=== PATIENT | male | born 1945 | race Caucasian/White ===

== ENCOUNTER 2017-07-28 12:43 | Outpatient (CLI) | payer MEDICARE ==
--- NOTE | 2017-07-28 14:49 | RAD ---
TWO VIEW CHEST: History: Dyspnea. FINDINGS: The lungs appear clear of infiltrate. No evidence of vascular congestion or edema. Heart size is mild ly prominent. Post op sternotomy changes are noted. Degenerative spine changes are seen. IMPRESSION: No evidence of acute process. POS: [facility]
== END 2017-07-28 12:44 | disposition home or self-care (01) ==
LOC: RAD 12:43
PROVIDERS: ATTEND Internal Medicine Critical Care Medicine
DX: R06.00 Dyspnea, unspecified (principal)
CPT/HCPCS: 71046

== ENCOUNTER 2018-06-16 22:59 | Inpatient (IN) | payer MEDICARE ==
[~2018-06-16 22:59] MED LIST: Heparin 10,000 UNITS/ 10 ML VIAL ONE
[2018-06-16] MEDS ORDERED: DOBUTamine 500 mg/250 ml 250 ML ONE (23:07)
[2018-06-16] MEDS ORDERED: Lidocaine 1% (PF) 30 ML VIAL ONE (23:20)
[2018-06-16 23:27] LABS: Hemoglobin 15.8 g/dL (14.0-18.0); Mean Corpuscular HGB CONC 33.9 g/dL (32.0-36.0); Mean Corpuscular Hemoglobin 31.6 pg (27.0-31.0); Mean Corpuscular Volume 93.4 fL (78.0-98.0); Mean Platelet Volume 9.2 fL (7.4-10.4); Platelet Count 123 thou/uL (130-400); RBC Distribution Width 13.1 % (11.5-14.5); Red Blood Cell (RBC) Count 4.99 mill/uL (4.70-6.10); White Blood Cell (WBC) Count 12.4 thou/uL (4.8-10.8)
[2018-06-16 23:32] LABS: INR-International Normal Ratio 1.7; PTT 40.2 SEC (22.9-36.1)
[2018-06-16 23:44] LABS: Band 31 % (5-11); Lymphocytes 2 % (21-51); MDiff Complete? YES; Monocytes 2 % (0-10); Neutrophil 64 % (42-75); PLT Morphology Comment Appears Decreased; RBC Morphology Normal; Reactive Lymphocytes 1 % (0-10)
[2018-06-16 23:49] LABS: ALT (SGPT) 15 U/L (8-55); AST (SGOT) 65 U/L (5-34); Albumin 2.7 g/dL (3.4-4.8); Alkaline Phosphatase 63 U/L (40-150); Anion Gap 15 mmol/L (10-20); BUN (Urea Nitrogen) 27 mg/dL (8.4-25.7); Calc. Creatinine Clearance 0 mL/min (70-130); Calcium 7.8 mg/dL (7.8-10.44); Carbon Dioxide 20 mmol/L (23-31); Chloride 103 mmol/L (98-107); Estimated GFR-MDRD 64; Globulin 2.9 g/dL (2.4-3.5); Glucose 366 mg/dL (83-110); Protein, Total 5.6 g/dL (5.8-8.1); Sodium 135 mmol/L (136-145)
[2018-06-16 23:58] LABS: Potassium 2.8 mmol/L (3.5-5.1)
--- NOTE | 2018-06-17 00:02 | RAD ---
PORTABLE CHEST ONE VIEW 06/16/18 HISTORY: 72-year-old male with history of dyspnea and respiratory distress. COMPARISON: 06/16/18 There is bilateral vascular congestion with some interstitial edema in the perihilar regions. There i s more focally prominent confluent parenchymal change in the right mid and lower lung zone which cert ainly could represent coexistent pneumonia or asymmetric edema. Postop midline sternotomy. The vascul ar congestion actually appears to be slightly improved from the earlier 06/16 study. IMPRESSION: Slightly improving bilateral vascular congestion. Somewhat more confluent alveolar parenchymal change in the right lower lobe primarily raising concern for coexistent pneumonia. POS: [facility]
[2018-06-17] MEDS ORDERED: Heparin 10,000 UNITS/1 ML VIAL ONE (00:30)
[2018-06-17] MEDS ORDERED: Norepinephrine 4 MG/4 ML VIAL ONE ×2 (00:30→00:41)
[2018-06-17] MEDS ORDERED: Morphine 4 MG/ML VIAL SLOW IVP PRN ×2 (01:58→01:59)
[2018-06-17] MEDS ORDERED: Potassium Chloride 20 MEQ in Premix Bag 1 BAG IVPB SCH (02:00)
[2018-06-17] MEDS ORDERED: Heparin 25,000 units/D5W 500 ML IV SCH (02:00)
[2018-06-17] MEDS ORDERED: Aspirin 325 mg Enteric Coated Tablet PO SCH (02:00)
[2018-06-17] MEDS ORDERED: DOPamine 400 MG/D5W 250 ML 250 ML IVPB SCH (02:00)
[2018-06-17] MEDS ORDERED: traMADol HCl 50 MG TAB PO PRN (02:05)
[2018-06-17] MEDS ORDERED: Nitroglycerin 0.4 MG TAB (25 Tab Bottle) SL PRN (02:05)
[2018-06-17] MEDS: Potassium Chloride 20 MEQ TAB PO SCH ×3 (02:19→15:26)
[2018-06-17 02:36] LABS: PTT 138.2 SEC (22.9-36.1)
[2018-06-17 03:01] LABS: Anion Gap 19 mmol/L (10-20); BUN (Urea Nitrogen) 33 mg/dL (8.4-25.7); Calc. Creatinine Clearance 65 mL/min (70-130); Calcium 9.1 mg/dL (7.8-10.44); Carbon Dioxide 19 mmol/L (23-31); Chloride 96 mmol/L (98-107); Estimated GFR-MDRD 50; Glucose 448 mg/dL (83-110); Potassium 4.2 mmol/L (3.5-5.1); Sodium 130 mmol/L (136-145)
[2018-06-17] MEDS ORDERED: Dextrose 50% Abboject 50 ML SYRINGE IVP PRN (03:12)
[2018-06-17] MEDS ORDERED: Dextrose 5% in Water 1,000 ML IV PRN (03:12)
[2018-06-17] MEDS: HumaLOG 300 UNITS/3 ML VIAL SC PRN ×4 (03:17→20:34)
[2018-06-17] MEDS: Norepinephrine 8 MG/250 ML BAG IVPB PRN ×4 (04:34→22:49)
--- NOTE | 2018-06-17 05:01 | CON ---
DATE OF CONSULTATION: 06/16/2018 INDICATION FOR CONSULTATION: The patient was admitted with an acute myocardial infarction, uncertain of which area. The patient does have a left bundle branch block. Also, he has had multiple stents placed, bypass surgery, and has had a repeat myocardial infarction. HISTORY OF PRESENT ILLNESS: This is a very unfortunate 72-year-old gentleman who has been having pain all day today, presents to emergency room. He has been seen by Dr. Hannah and had multiple stents placed in the right coronary artery and also the left circumflex as well as in the obtuse marginal branch of the left circumflex. He was seen in 2016, having been suffered another acute myocardial infarction. 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 At that time, he underwent stent placement to the saphenous vein graft again and also to the distal right coronary artery and sokaogon vessel just beyond the stented area. At that time, he was noted to have the other grafts were patent. The ejection fraction has been relatively well preserved. After presenting today to the emergency room, he appeared to be having acute GA. He did have some left bundle branch block making it difficult to determine exactly, which area was involved with a myocardial infarction. He was advised to undergo a cardiac catheterization. PAST MEDICAL HISTORY: Significant for coronary artery disease, diabetes, hypertension, sleep apnea, dyslipidemia. SOCIAL HISTORY: He has had a history of tobacco abuse in the past. PAST SURGICAL HISTORY: Multiple stent placements. He had bypass surgery. Please refer the notes already outlined by Dr. Hannah for the various stents placed. He has also had a cholecystectomy and cataract surgery as well as the bundle branch block, which was at least diagnosed since 2016. ALLERGIES: ALLERGIES TO AMOXICILLIN. MEDICATIONS: Please refer to the list of medications in the chart. They have already been documented. REVIEW OF SYSTEMS: At this time is not obtainable, but mainly just complains of chest pain. He had been doing relatively well until just recently when he developed the pain. PHYSICAL EXAMINATION: GENERAL: Reveals an elderly gentleman who is in least moderate degree of distress. He continues to have chest pain in the emergency room. VITAL SIGNS: His blood pressures are in the 80s to 100 with support. His heart rate is in the 100s to 120s, respiratory rate is 29 to 39. HEENT: Shows head to be normocephalic and atraumatic. I could not hear any carotid bruits. I did feel some carotid pulses. His chest has coarse rhonchi noted on the right side posteriorly and mildly also anteriorly. I did not hear anything on the left side. CARDIOVASCULAR. Heart sounds are somewhat distant. I do not hear any gross murmurs. He is tachycardic. He has a well-healed midline surgical incision after median sternotomy. ABDOMEN: Abdominal exam shows obesity with no tenderness. Femoral pulses are present. EXTREMITIES: Showed no clubbing or cyanosis. Pedal pulses are difficult to palpate. NEUROLOGIC: The patient seems to be relatively intact. SKIN: Warm and dry at this time. LABORATORY DATA: EKG shows a left bundle branch block. Troponin I is 0.150. MB was 1.8 with a BNP of 415. His blood sugar was 520, creatinine 1.1 with a potassium of 4.2, and WBC was 12.4 with a hemoglobin 15.8, his O2 saturation was 95%. PH was 7.38 with a pCO2 of 39 and a pO2 of 77. IMPRESSION: 1. Cardiogenic shock due to the acute myocardial infarction. He has been given heparin and dopamine as well as dobutamine prior to arriving here and these medicines have been continued. 2. Acute myocardial infarction of uncertain area due to the left bundle branch block. He was advised to undergo emergent cardiac catheterization. He will be taken to the cardiac yard laborer. I did explain the procedure, the risks to him to include bleeding, infection, possibility of myocardial infarction, cerebrovascular accident, renal insufficiency, allergy to contrast possibility of . He understands and agrees. We will plan for emergent cardiac catheterization to determine whether or not he has had a sokaogon vessel or saphenous vein graft occlusion. 3. History of diabetes. This will be dealt with by the primary care service. We will ask for the hospitalist service to assist us in his care. 4. History of hyperlipidemia. We will continue his medications once he is stable. 5. History of tobacco abuse. he no longer smokes. 6. History of hypertension, this is on the low side at this time. 7. History of coronary artery disease and previous bypass surgery, angioplasty, stent placement and myocardial infarction, and again he will be taken to cardiac yard laborer emergently and we will determine whether or not we can assist him and try to diminish his myocardial infarction. 8. Sleep apnea. We will continue his CPAP mask at this time. Further care of the patient will be by Dr. Hannah when he sees him tomorrow morning after we proceed to cardiac catheterization if he survives. He appears to be very ill at this time. He is hypotensive. Job ID: [id number] [facility]TD[facility]
[2018-06-17] MEDS ORDERED: Nitroglycerin 50 MG/250 ML BOT 250 ML IVPB SCH (07:45)
[2018-06-17] MEDS ORDERED: Morphine 2 MG/ML SYRINGE SLOW IVP PRN (07:46)
[2018-06-17] MEDS ORDERED: Nitroglycerin 50 MG/250 ML BOT 250 ML ONE (07:56)
[2018-06-17] MEDS ORDERED: Doxycycline 100 MG in Syringe 0 ML IVPB SCH (09:00)
[2018-06-17] MEDS: Morphine 4 MG/ML VIAL SLOW IVP PRN ×3 (09:32→17:21)
[2018-06-17] MEDS: Aspirin 325 mg Enteric Coated Tablet PO SCH (10:06)
[2018-06-17] MEDS: Insulin Glargine 30 UNITS in Pre-Filled Syringe 1 EACH SC SCH (11:02)
[2018-06-17] MEDS: Heparin 10,000 UNITS/ 10 ML VIAL SLOW IVP SCH ×2 (12:28→19:20)
--- NOTE | 2018-06-17 12:38 | PDOC.PN ---
- Subjective Encounter Start Date: 06/17/18 Encounter Start Time: 08:15 Subjective: c/o chest pain, sob+ -: at bedside - Objective Resuscitation Status - Order Detail: 06/17/18 01:48 Resuscitation Status Routine Resuscitation Status: FULL: Full Resuscitation MAR Reviewed: Yes Vital Signs & Weight: Vital Signs (12 hours) Temp Pulse Pulse Ox 06/17/18 10:47 106 H 06/17/18 06:50 129 H 100 06/17/18 03:00 98.3 F 06/17/18 02:13 100 06/17/18 01:55 98 06/17/18 01:40 133 H 06/17/18 01:31 98.5 F Weight Weight 210 lb 15.718 oz Most Recent Monitor Data Heart Rate from ECG 113 NIBP 97/68 NIBP BP-Mean 77 Respiration from ECG 32 SpO2 95 I&O: 06/16/18 06/17/18 06/18/18 06:59 06:59 06:59 Output Total 420 Balance -420 Result Diagrams: 06/16/18 23:17 06/17/18 02:06 Additional Labs: Accuchecks 06/17/18 06/17/18 09:59 02:00 POC Glucose 461 H 383 H Phys Exam - Physical Examination HEENT: PERRLA, moist MMs Neck: no JVD, supple Respiratory: no wheezing, no rales Cardiovascular: RRR, no significant murmur Gastrointestinal: soft, non-tender, positive bowel sounds Musculoskeletal: no edema, pulses present Neurological: non-focal, moves all 4 limbs Psychiatric: normal affect, A&O x 3 Dx/Plan (1) Acute SC Code(s): I21.9 - ACUTE MYOCARDIAL INFARCTION, UNSPECIFIED Status: Acute Qualifiers: Myocardial infarction type: non-ST elevation myocardial infarction Qualified Code(s): I21.4 - Non-ST elevation (NSTEMI) myocardial infarction (2) ALISON (acute kidney injury) Code(s): N17.9 - ACUTE KIDNEY FAILURE, UNSPECIFIED Status: Acute (3) Metabolic acidosis Code(s): E87.2 - ACIDOSIS Status: Acute (4) FLORY (obstructive sleep apnea) Code(s): G47.33 - OBSTRUCTIVE SLEEP APNEA (ADULT) (PEDIATRIC) Status: Chronic (5) Cardiogenic shock Code(s): R57.0 - CARDIOGENIC SHOCK Status: Acute (6) DM2 (diabetes mellitus, type 2) Status: Chronic Qualifiers: Diabetes mellitus custodial insulin use: without custodial use Diabetes mellitus complication status: with unspecified complications Qualified Code(s) : E11.8 - Type 2 diabetes mellitus with unspecified complications (7) HTN (hypertension) Code(s): I10 - ESSENTIAL (PRIMARY) HYPERTENSION Status: Chronic Qualifiers: Hypertension type: essential hypertension Qualified Code(s): I10 - Essential (primary) hypertension - Plan will add lantus bid, hold metformin/glipizide -: on heparin drip, nitro drip, aspirin -: cath results noted -: still has ongoing chest pain, per cardio adv -: home cardiac meds per cardio adv * . Review of Systems - Medications/Allergies Allergies/Adverse Reactions: Allergies Allergy/AdvReac Type Severity Reaction Status Date / Time amoxicillin [Amoxicillin] Allergy Verified 05/30/16 08:08 Medications: Current Medications Acetaminophen/Codeine Phosphate (Tylenol #3) 1 tab PO Q4H PRN PRN Reason: Mild Pain (1-3) 2ND LINE Acetaminophen/Codeine Phosphate (Tylenol #3) 2 tab PO Q4H PRN PRN Reason: Moderate Pain (4-6) 2ND LINE Aspirin (Ecotrin) 325 mg PO DAILY TRANG Last Admin: 06/17/18 10:06 Dose: 325 mg Dextrose/Water (Dextrose 50%) 25 gm IVP PRN PRN PRN Reason: HYPOGLYCEMIA PROTOCOL Glucagon (Glucagon) 1 mg IM PRN PRN PRN Reason: HYPOGLYCEMIA PROTOCOL Heparin Sodium (Porcine) (Heparin 1,000 Units/Ml (10 Ml)) 0 units SLOW IVP WILLCALL TRANG Last Admin: 06/17/18 12:28 Dose: 2,964 unit Norepinephrine Bitartrate (Levophed) 250 mls @ 0 mls/hr IVPB INF PRN; Protocol PRN Reason: Blood Pressure Last Admin: 06/17/18 10:07 Dose: 250 mls Dopamine HCl/Dextrose (Dopamine/D5w) 250 mls @ 0 mls/hr IVPB INF TRANG; Protocol Last Admin: 06/17/18 03:41 Dose: 250 mls Heparin Sodium/Dextrose (Heparin 25,000 Units/D5w 500 Ml) 500 mls @ 0 mls/hr IV INF TRANG; Protocol Dextrose/Water (D5w) 1,000 mls @ 0 mls/hr IV INF PRN PRN Reason: HYPOGLYCEMIA PROTOCOL Nitroglycerin/Dextrose (Nitroglycerin 50 Mg/250 Ml Bot) 250 mls @ 0 mls/hr IVPB INF TRANG; Protocol Insulin Glargine 30 units/ (Miscellaneous Medication) 0.3 mls @ 0 mls/hr SC QAM TRANG Last Admin: 06/17/18 11:02 Dose: 0.3 mls Doxycycline Hyclate 100 mg/ (Sodium Chloride) 100 mls @ 100 mls/hr IVPB 1000, 2200 ON LICENSE OF [facility] Last Admin: 06/17/18 10:06 Dose: 100 mls Influenza Virus Vacc Triv Types A&B (Fluzone High-Dose Syr) 0.5 ml IM .ONCE ONE Stop: 06/19/18 09:01 Insulin Human Lispro (Humalog) 0 units SC .MODERATE SLIDING SC PRN; Protocol PRN Reason: MODERATE SLIDING SCALE Last Admin: 06/17/18 10:30 Dose: 10 unit Morphine Sulfate (Morphine) 2 mg SLOW IVP Q1H PRN PRN Reason: Moderate Pain (4-6) Morphine Sulfate (Morphine) 4 mg SLOW IVP Q1H PRN PRN Reason: Severe Pain (7-10) Last Admin: 06/17/18 09:32 Dose: 4 mg Nitroglycerin (Nitrostat) 0.4 mg SL Q5MIN PRN PRN Reason: Chest Pain Last Admin: 06/17/18 04:19 Dose: 0.4 mg Potassium Chloride (K-Dur) 20 meq PO Q6H ON LICENSE OF [facility] Stop: 06/17/18 14:01 Last Admin: 06/17/18 10:10 Dose: Not Given Sodium Chloride (Normal Saline 0.9% 250 Ml Bag) 200 ml IVPB ONE PRN PRN Reason: BOLUS IF SBP <90 Stop: 06/18/18 02:06 Sodium Chloride (Flush - Normal Saline) 10 ml IVF PRN PRN PRN Reason: Saline Flush Sodium Chloride (Flush - Normal Saline) 10 ml IVF Q12HR ON LICENSE OF [facility] Last Admin: 06/17/18 09:34 Dose: 10 ml Tramadol HCl (Ultram) 50 mg PO Q6H PRN PRN Reason: Mild Pain (1-3) Trazodone HCl (Desyrel) 50 mg PO HS TRANG
--- NOTE | 2018-06-17 12:46 | CON ---
DATE OF CONSULTATION: 06/17/2018 This encompasses 35 minutes of critical care time. HISTORY OF PRESENT ILLNESS: This patient is in the ICU after sustaining an acute myocardial infarction. He went to the labor representative, and apparently, there was nothing they could be done from an interventional standpoint. He continues to have chest pain and shortness of breath. He is requesting that everything possible to be done for the time being. He has a history of coronary artery bypass grafting surgery as well as several cardiac stents. He has been coughing. He says he has had subjective fever at home. His x-ray at time of admission showed a right lower lobe infiltrate. He has not been started on antibiotics or cultured. PAST MEDICAL HISTORY: 1. Coronary artery disease. 2. Diabetes mellitus. 3. Hypertension. 4. FLORY. 5. Hyperlipidemia. SOCIAL HISTORY: He has a history of tobacco abuse in the past. Does not consume alcohol. PAST SURGICAL HISTORY: Multiple coronary stent placements, coronary artery bypass grafting surgery, cholecystectomy, and cataract surgery. ALLERGIES: AMOXICILLIN. MEDICATIONS: 1. Testosterone 200 mg IM monthly. 2. Glucosamine 1500 mg p.o. b.i.d. 3. Desyrel 100 mg nightly. 4. Temazepam 30 mg nightly. 5. Crestor 10 mg daily. 6. Lyrica 150 mg twice daily. 7. Potassium chloride 10 mEq daily. 8. Multivitamin one daily. 9. Isosorbide 120 mg daily. 10. Hydrochlorothiazide 25 mg twice daily. 11. Glipizide/metformin 2 tablets b.i.d. 12. Carvedilol 25 mg b.i.d. 13. Aspirin 81mg daily. 14. Amlodipine 5 mg daily. PHYSICAL EXAMINATION: VITAL SIGNS: Temperature 98.3, pulse 127, blood pressure 102/60, O2 saturation 96%. On my arrival, the patient was on dopamine drip. He was also on a Levophed drip at 30 mcg/minute. HEENT: He has a disheveled appearance. Some mild bitemporal wasting. He has no oropharyngeal lesions. NECK: Without adenopathy, JVD, or bruits. CARDIAC: S1 and S2, tachycardic without audible murmur. LUNGS: He has few inspiratory crackles in the right base. ABDOMEN: Soft and nontender without hepatosplenomegaly. EXTREMITIES: No clubbing, cyanosis, or edema. LABORATORY DATA: Sodium potassium 4.2, chloride 96, CO2 of 19, BUN 33, creatinine 1.4, glucose 448. His last troponin was 40. White blood cell count 12.4, hematocrit 46.6, platelet count 123 with 64% neutrophils and 31% bands. His x-ray shows a significant right lower lobe infiltrate. ASSESSMENT: 1. Cardiogenic shock related to myocardial infarction. 2. Question of right lower lobe pneumonia versus overt pulmonary edema from congestive heart failure. Of note, this patient has significant bandemia and elevated white blood cell count. 3. Coronary artery disease. 4. History of sleep apnea. 5. History of hyperlipidemia. 6. Diabetes mellitus with blood sugar out of control. PLAN: 1. We will go ahead and put him on some long-acting insulin. 2. Continue sliding scale. 3. Add IV antibiotics after cultures have been obtained. 4. Discussed code status with the patient. He prefers to remain full code at this time. 5. Withhold his metformin for the time being since he received contrast for cardiac catheterization last night. 6. Await further recommendations per Dr. Hannah. 7. I have added nitroglycerin drip to help control his chest pain. 8. Wean off dopamine drip and try to control blood pressure with Levophed given his extreme tachycardia. Job ID: [id number] [facility]
[2018-06-17] MEDS ORDERED: Furosemide 20 MG/2 ML VIAL SLOW IVP SCH (18:00)
[2018-06-17] MEDS ORDERED: traZODone HCl 50 MG TAB PO SCH (21:00)
[2018-06-18] MEDS: Ondansetron PF 4 MG/2 ML Vial IVP PRN ×2 (01:39→20:33)
[2018-06-18] MEDS: HumaLOG 300 UNITS/3 ML VIAL SC PRN ×4 (01:42→16:29)
[2018-06-18] MEDS ORDERED: Vancomycin HCl 1.25 GM in Sodium Chloride 0.9% 250 ML 250 ML IVPB SCH (03:00)
[2018-06-18] MEDS: Acetaminophen/Codeine 30-300mg Tablet PO PRN ×3 (05:14→20:24)
[2018-06-18 05:39] LABS: Anion Gap 17 mmol/L (10-20); BUN (Urea Nitrogen) 48 mg/dL (8.4-25.7); Calc. Creatinine Clearance 71 mL/min (70-130); Carbon Dioxide 21 mmol/L (23-31); Chloride 100 mmol/L (98-107); Estimated GFR-MDRD 55; Glucose 384 mg/dL (83-110); Magnesium 1.5 mg/dL (1.6-2.6); Potassium 3.8 mmol/L (3.5-5.1); Sodium 134 mmol/L (136-145)
[2018-06-18 05:56] LABS: Band 16 % (5-11); Hemoglobin 16.3 g/dL (14.0-18.0); Lymphocytes 7 % (21-51); MDiff Complete? YES; Mean Corpuscular HGB CONC 33.7 g/dL (32.0-36.0); Mean Corpuscular Hemoglobin 31.4 pg (27.0-31.0); Mean Corpuscular Volume 93.3 fL (78.0-98.0); Mean Platelet Volume 9.5 fL (7.4-10.4); Monocytes 1 % (0-10); Neutrophil 76 % (42-75); PLT Morphology Comment Appears Adequate; Platelet Count 148 thou/uL (130-400); RBC Distribution Width 13.3 % (11.5-14.5); RBC Morphology Normal; Red Blood Cell (RBC) Count 5.19 mill/uL (4.70-6.10); White Blood Cell (WBC) Count 17.2 thou/uL (4.8-10.8)
[2018-06-18] MEDS: Norepinephrine 8 MG/250 ML BAG IVPB PRN (08:05)
[2018-06-18] MEDS: Aspirin 325 mg Enteric Coated Tablet PO SCH (09:24)
[2018-06-18] MEDS: Insulin Glargine 30 UNITS in Pre-Filled Syringe 1 EACH SC SCH ×2 (09:24→21:17)
--- NOTE | 2018-06-18 09:31 | RAD ---
PORTABLE SEMIUPRIGHT FRONTAL CHEST RADIOGRAPH: DATE: 06/18/2018. COMPARISON: 06/16/2018. HISTORY: Ventilated patient, respiratory distress, shortness of breath. FINDINGS: No endotracheal tube is present on this exam. Midline sternotomy wires are present. There is stable prominence of the cardiac silhouette. There is stable pulmonary vascular congestion and perihilar i nterstitial prominence with airspace disease throughout the right lung with a basilar predominance, u nchanged. IMPRESSION: Stable interstitial and alveolar opacity, right greater than left. Findings suggest asymmetric pulmo nary edema and/or infectious pneumonitis. Followup to resolution is advised. POS: [facility]
--- NOTE | 2018-06-18 10:09 | PRG ---
DATE OF SERVICE: 06/18/2018 SUBJECTIVE: His chest pain is better today. He remains on a nitroglycerin drip. He is also on Levophed for sustained hypotension. OBJECTIVE: VITAL SIGNS: On exam, his temperature is 98.1, pulse 74, and blood pressure 94/60. 24-hour intake 2439, output 1423. HEENT: Unremarkable. NECK: No JVD. CHEST: Clear. CARDIAC: S1, S2. Slightly tachycardic. ABDOMEN: Soft and nontender. EXTREMITIES: No edema. LABORATORY DATA: PTT is 56.2. White blood cell count 17.2, hematocrit 48.4, and platelet count 148 with 76% neutrophils and 16% bands. Sodium 134, potassium 3.8, chloride 100, CO2 of 21, BUN 48, creatinine 1.3, and glucose is 384. ASSESSMENT: 1. Angina. 2. Coronary artery disease - inoperable. 3. Blood glucose, out of control. 4. One positive blood culture. PLAN: 1. Hold the vancomycin and restart the doxycycline. Please do not adjust antibiotics without first discussing with me. 2. Wean off nitroglycerin drip as tolerated. 3. Wean Levophed, if at all possible. Job ID: [id number]
[2018-06-18] MEDS ORDERED: Furosemide 20 MG/2 ML VIAL SLOW IVP SCH (11:15)
--- NOTE | 2018-06-18 11:29 | PDOC.PN ---
- Subjective Encounter Start Date: 06/18/18 Encounter Start Time: 09:15 Subjective: awake, chest pain is better, has sob - Objective Resuscitation Status - Order Detail: 06/17/18 01:48 Resuscitation Status Routine Resuscitation Status: DNAR: NO Resuscitation Discussed with: d/w patient at bedside MAR Reviewed: Yes Vital Signs & Weight: Vital Signs (12 hours) Temp Pulse Pulse Ox 06/18/18 08:00 98.4 F 92 L 06/18/18 07:50 94 L 06/18/18 04:00 98.1 F 06/18/18 02:24 110 H 06/18/18 00:00 98.1 F Weight Weight 210 lb 15.718 oz Most Recent Monitor Data Heart Rate from ECG 109 NIBP 104/67 NIBP BP-Mean 79 Respiration from ECG 23 SpO2 92 I&O: 06/17/18 06/18/18 06/19/18 06:59 06:59 06:59 Intake Total 2439.7 150 Output Total 420 1423 130 Balance -420 1016.7 20 Result Diagrams: 06/18/18 05:05 06/18/18 05:05 Additional Labs: Accuchecks 06/18/18 06/17/18 06/17/18 01:05 20:26 16:53 POC Glucose 368 H 379 H 386 H 06/17/18 13:36 POC Glucose 226 H Phys Exam - Physical Examination HEENT: PERRLA, sclera anicteric Neck: no JVD, supple Respiratory: no wheezing, no rales Cardiovascular: RRR, no significant murmur Gastrointestinal: soft, non-tender, positive bowel sounds Musculoskeletal: no edema, pulses present Neurological: non-focal, moves all 4 limbs Psychiatric: A&O x 3 Dx/Plan (1) Acute ME Code(s): I21.9 - ACUTE MYOCARDIAL INFARCTION, UNSPECIFIED Status: Acute Qualifiers: Myocardial infarction type: non-ST elevation myocardial infarction Qualified Code(s): I21.4 - Non-ST elevation (NSTEMI) myocardial infarction (2) ALISON (acute kidney injury) Code(s): N17.9 - ACUTE KIDNEY FAILURE, UNSPECIFIED Status: Acute (3) Metabolic acidosis Code(s): E87.2 - ACIDOSIS Status: Acute (4) FLORY (obstructive sleep apnea) Code(s): G47.33 - OBSTRUCTIVE SLEEP APNEA (ADULT) (PEDIATRIC) Status: Chronic (5) Cardiogenic shock Code(s): R57.0 - CARDIOGENIC SHOCK Status: Acute (6) DM2 (diabetes mellitus, type 2) Status: Chronic Qualifiers: Diabetes mellitus custodial insulin use: without termite control technician use Diabetes mellitus complication status: with unspecified complications Qualified Code(s) : E11.8 - Type 2 diabetes mellitus with unspecified complications (7) HTN (hypertension) Code(s): I10 - ESSENTIAL (PRIMARY) HYPERTENSION Status: Chronic Qualifiers: Hypertension type: essential hypertension Qualified Code(s): I10 - Essential (primary) hypertension - Plan is slowly weaning from nitro and levophed drips, heparin drip -: on doxy, blood cs strep agalact -: echo shows very poor ef of 15% -: [place] for med mgmt, he wanted to be DNAR yesterday -: on asp, got 1 dose lasix, watch for renal function * . Review of Systems - Medications/Allergies Allergies/Adverse Reactions: Allergies Allergy/AdvReac Type Severity Reaction Status Date / Time amoxicillin [Amoxicillin] Allergy Verified 05/30/16 08:08 Medications: Current Medications Acetaminophen/Codeine Phosphate (Tylenol #3) 1 tab PO Q4H PRN PRN Reason: Mild Pain (1-3) 2ND LINE Last Admin: 06/18/18 09:45 Dose: 1 tab Acetaminophen/Codeine Phosphate (Tylenol #3) 2 tab PO Q4H PRN PRN Reason: Moderate Pain (4-6) 2ND LINE Last Admin: 06/18/18 05:14 Dose: 2 tab Aspirin (Ecotrin) 325 mg PO DAILY [facility] Last Admin: 06/18/18 09:24 Dose: 325 mg Dextrose/Water (Dextrose 50%) 25 gm IVP PRN PRN PRN Reason: HYPOGLYCEMIA PROTOCOL Furosemide (Lasix) 20 mg SLOW IVP NOW TRANG Stop: 06/18/18 13:15 Glucagon (Glucagon) 1 mg IM PRN PRN PRN Reason: HYPOGLYCEMIA PROTOCOL Norepinephrine Bitartrate (Levophed) 250 mls @ 0 mls/hr IVPB INF PRN; Protocol PRN Reason: Blood Pressure Last Admin: 06/18/18 08:05 Dose: 250 mls Dextrose/Water (D5w) 1,000 mls @ 0 mls/hr IV INF PRN PRN Reason: HYPOGLYCEMIA PROTOCOL Nitroglycerin/Dextrose (Nitroglycerin 50 Mg/250 Ml Bot) 250 mls @ 0 mls/hr IVPB INF TRANG; Protocol Insulin Glargine 30 units/ (Miscellaneous Medication) 0.3 mls @ 0 mls/hr SC QAM TRANG Last Admin: 06/18/18 09:24 Dose: 0.3 mls Doxycycline Hyclate 100 mg/ (Sodium Chloride) 100 mls @ 100 mls/hr IVPB Q12HR TRANG Last Admin: 06/18/18 09:24 Dose: 100 mls Insulin Glargine 30 units/ (Miscellaneous Medication) 0.3 mls @ 0 mls/hr SC HS TRANG Influenza Virus Vacc Triv Types A&B (Fluzone High-Dose Syr) 0.5 ml IM .ONCE ONE Stop: 06/19/18 09:01 Insulin Human Lispro (Humalog) 0 units SC .MODERATE SLIDING SC PRN; Protocol PRN Reason: MODERATE SLIDING SCALE Last Admin: 06/18/18 06:04 Dose: 10 unit Morphine Sulfate (Morphine) 2 mg SLOW IVP Q1H PRN PRN Reason: Moderate Pain (4-6) Last Admin: 06/18/18 02:02 Dose: 2 mg Morphine Sulfate (Morphine) 4 mg SLOW IVP Q1H PRN PRN Reason: Severe Pain (7-10) Last Admin: 06/17/18 17:21 Dose: 4 mg Nitroglycerin (Nitrostat) 0.4 mg SL Q5MIN PRN PRN Reason: Chest Pain Last Admin: 06/17/18 04:19 Dose: 0.4 mg Ondansetron HCl (Zofran) 4 mg IVP Q6H PRN PRN Reason: Nausea/Vomiting Last Admin: 06/18/18 01:39 Dose: 4 mg Sodium Chloride (Flush - Normal Saline) 10 ml IVF PRN PRN PRN Reason: Saline Flush Sodium Chloride (Flush - Normal Saline) 10 ml IVF Q12HR TRANG Last Admin: 06/18/18 09:25 Dose: 10 ml Tramadol HCl (Ultram) 50 mg PO Q6H PRN PRN Reason: Mild Pain (1-3) Trazodone HCl (Desyrel) 50 mg PO HS TRANG Last Admin: 06/17/18 20:34 Dose: 50 mg
[2018-06-18] MEDS: Temazepam 15 MG CAP PO PRN (20:27)
[2018-06-18] MEDS ORDERED: traZODone HCl 50 MG TAB PO SCH (21:00)
[2018-06-19 05:18] LABS: #Lymphocytes 0.9 thou/uL (1.20-3.40); #Monocytes 0.9 thou/uL (0.11-0.59); #Neutrophils 9.9 thou/uL (1.40-6.50); %Basophils 0.2 % (0.0-1.0); %Eosinophils 0.3 % (0.0-10.0); %Lymphocytes 7.7 % (21.0-51.0); %Monocytes 7.5 % (0.0-10.0); %Neutrophils 84.3 % (42.0-75.0); Hemoglobin 16.2 g/dL (14.0-18.0); Mean Corpuscular HGB CONC 33.7 g/dL (32.0-36.0); Mean Corpuscular Hemoglobin 31.9 pg (27.0-31.0); Mean Corpuscular Volume 94.5 fL (78.0-98.0); Mean Platelet Volume 9.7 fL (7.4-10.4); Platelet Count 115 thou/uL (130-400); RBC Distribution Width 13.5 % (11.5-14.5); Red Blood Cell (RBC) Count 5.08 mill/uL (4.70-6.10); White Blood Cell (WBC) Count 11.7 thou/uL (4.8-10.8)
[2018-06-19 05:24] LABS: Anion Gap 18 mmol/L (10-20); BUN (Urea Nitrogen) 59 mg/dL (8.4-25.7); Calc. Creatinine Clearance 63 mL/min (70-130); Calcium 9.2 mg/dL (7.8-10.44); Carbon Dioxide 26 mmol/L (23-31); Chloride 95 mmol/L (98-107); Estimated GFR-MDRD 47; Glucose 307 mg/dL (83-110); Potassium 3.8 mmol/L (3.5-5.1); Sodium 135 mmol/L (136-145)
[2018-06-19] MEDS: Ondansetron PF 4 MG/2 ML Vial IVP PRN ×2 (06:09→20:33)
[2018-06-19] MEDS: Insulin Glargine 30 UNITS in Pre-Filled Syringe 1 EACH SC SCH ×3 (08:00→20:36)
[2018-06-19] MEDS: Acetaminophen/Codeine 30-300mg Tablet PO PRN ×2 (08:07→20:34)
[2018-06-19] MEDS: Aspirin 325 mg Enteric Coated Tablet PO SCH (08:08)
[2018-06-19] MEDS: HumaLOG 300 UNITS/3 ML VIAL SC PRN ×3 (08:09→16:23)
--- NOTE | 2018-06-19 08:16 | RAD ---
PORTABLE CHEST: Date: 06-19-18 Provided Clinical History: Respiratory insufficiency. Comparison: 06-18-18 FINDINGS: Significant interval change with respect to the prior examination is not apparent. IMPRESSION: As above. POS: OFF
--- NOTE | 2018-06-19 08:56 | PRG ---
DATE OF SERVICE: 06/19/2018 PULMONARY/CRITICAL CARE PROGRESS NOTE SUBJECTIVE: This patient is very depressed. He states that he wants to . He has been successfully weaned off the nitroglycerin and Levophed drips. He used the BiPAP some last night. He says that he uses BiPAP at home every night for his sleep apnea. OBJECTIVE: VITAL SIGNS: On exam, his temperature is 97.9, pulse 110, and blood pressure 101/71. HEENT: Unremarkable. NECK: No JVD. LUNGS: He has crackles in both bases. CARDIAC: S1 and S2. Regular. ABDOMEN: Soft. EXTREMITIES: No edema. LABORATORY DATA: Sodium 135, potassium 3.8, chloride 95, CO2 of 26, BUN 59, creatinine 1.5, and glucose 307. White blood cell count 11.7, hematocrit 48, and platelet count 115. ASSESSMENT: 1. Myocardial infarction. 2. Status post acute respiratory failure related to pulmonary edema and pneumonia. 3. Hyperglycemia, out of control. 4. One positive blood culture, which may be a contaminant. PLAN: 1. Continue the doxycycline for now. 2. Transfer to [facility]. 3. Continue BiPAP at night for FLORY. 4. Best course is probably to proceed with palliative care measures as soon as practical. Job ID: [id number]
[2018-06-19] MEDS: Rosuvastatin 10 MG TAB PO SCH (10:30)
[2018-06-19] MEDS: Multivitamin W/ Minerals 1 TAB PO SCH (10:31)
[2018-06-19] MEDS ORDERED: Amiodarone In Dextrose 200 ML IVPB SCH (15:30)
[2018-06-19] MEDS ORDERED: DOPamine 400 MG/D5W 250 ML 250 ML IVPB SCH (15:30)
[2018-06-19] MEDS ORDERED: Amiodarone HCl 450 MG in Dextrose 5% in Water 250 ML IVPB SCH (16:15)
[2018-06-19] MEDS ORDERED: Furosemide 40 MG/4 ML VIAL SLOW IVP SCH (16:15)
[2018-06-19] MEDS ORDERED: glipiZIDE 5 MG TAB PO SCH (16:30)
[2018-06-19] MEDS ORDERED: Calcium Carbonate 500 MG ChewTAB PO PRN (16:51)
--- NOTE | 2018-06-19 17:13 | PDOC.PN ---
- Subjective Encounter Start Date: 06/19/18 Encounter Start Time: 08:00 Subjective: awake, has sob, no chest pain -: at bedside -: his extremities and body is cold to touch but insists on having fan - Objective Resuscitation Status - Order Detail: 06/17/18 01:48 Resuscitation Status Routine Resuscitation Status: DNAR: NO Resuscitation Discussed with: d/w patient at bedside MAR Reviewed: Yes Vital Signs & Weight: Vital Signs (12 hours) Temp Pulse Ox 06/19/18 16:00 99 F 06/19/18 12:00 97.8 F 06/19/18 08:00 97 06/19/18 07:00 97.9 F 91 L Weight Admit Weight 210 lb 15.718 oz Weight 213 lb 10.047 oz Most Recent Monitor Data Heart Rate from ECG 115 NIBP 120/82 NIBP BP-Mean 94 Respiration from ECG 21 SpO2 87 I&O: 06/18/18 06/19/18 06/20/18 06:59 06:59 06:59 Intake Total 2439.7 1767.8 180 Output Total 1423 1270 235 Balance 1016.7 497.8 -55 Result Diagrams: 06/19/18 04:45 06/19/18 04:45 Additional Labs: Accuchecks 06/19/18 06/19/18 06/18/18 16:28 12:00 20:46 POC Glucose 284 H 344 H 267 H Phys Exam - Physical Examination HEENT: PERRLA, sclera anicteric Neck: no JVD, supple Respiratory: no wheezing, no rales Cardiovascular: RRR, no significant murmur Gastrointestinal: soft, non-tender, positive bowel sounds Musculoskeletal: no edema, pulses present Neurological: non-focal, moves all 4 limbs Psychiatric: A&O x 3 Dx/Plan (1) Acute [place] Code(s): I21.9 - ACUTE MYOCARDIAL INFARCTION, UNSPECIFIED Status: Acute Qualifiers: Myocardial infarction type: non-ST elevation myocardial infarction Qualified Code(s): I21.4 - Non-ST elevation (NSTEMI) myocardial infarction Comment: for med treatment (2) ALISON (acute kidney injury) Code(s): N17.9 - ACUTE KIDNEY FAILURE, UNSPECIFIED Status: Acute (3) Metabolic acidosis Code(s): E87.2 - ACIDOSIS Status: Resolved (4) FLORY (obstructive sleep apnea) Code(s): G47.33 - OBSTRUCTIVE SLEEP APNEA (ADULT) (PEDIATRIC) Status: Chronic (5) Cardiogenic shock Code(s): R57.0 - CARDIOGENIC SHOCK Status: Resolved (6) DM2 (diabetes mellitus, type 2) Status: Chronic Qualifiers: Diabetes mellitus fci insulin use: without termite renewal inspector use Diabetes mellitus complication status: with unspecified complications Qualified Code(s) : E11.8 - Type 2 diabetes mellitus with unspecified complications Comment: uncontrolled (7) HTN (hypertension) Code(s): I10 - ESSENTIAL (PRIMARY) HYPERTENSION Status: Chronic Qualifiers: Hypertension type: essential hypertension Qualified Code(s): I10 - Essential (primary) hypertension - Plan palliative care consultation -: PT to mobilize as tolerated -: is tx to im[facility] -: is on aspirin, amiodarone for afib/flutter, crestor -: doxy bid, lantus 30u bid, glipizide added today * . Has poor oral intake with hyperglycemia, watch for low sugars may dc lasix with renal function slowly creeping up if ok with cardiology. will need placement eventually. BP is better now, will add small dose of coreg, no liz/arb's due to alison. Review of Systems - Medications/Allergies Allergies/Adverse Reactions: Allergies Allergy/AdvReac Type Severity Reaction Status Date / Time amoxicillin [Amoxicillin] Allergy Verified 05/30/16 08:08 Medications: Current Medications Acetaminophen/Codeine Phosphate (Tylenol #3) 1 tab PO Q4H PRN PRN Reason: Mild Pain (1-3) 2ND LINE Last Admin: 06/18/18 09:45 Dose: 1 tab Acetaminophen/Codeine Phosphate (Tylenol #3) 2 tab PO Q4H PRN PRN Reason: Moderate Pain (4-6) 2ND LINE Last Admin: 06/19/18 08:07 Dose: 2 tab Aspirin (Ecotrin) 325 mg PO DAILY [facility] Last Admin: 06/19/18 08:08 Dose: 325 mg Calcium Carbonate (Tums) 500 mg PO ONE PRN PRN Reason: .INDIGESTION Stop: 06/20/18 16:52 Last Admin: 06/19/18 16:58 Dose: 500 mg Dextrose/Water (Dextrose 50%) 25 gm IVP PRN PRN PRN Reason: HYPOGLYCEMIA PROTOCOL Enoxaparin Sodium (Lovenox) 100 mg SC 0900,2100 [facility] Furosemide (Lasix) 40 mg SLOW IVP NOW [facility] Stop: 06/19/18 18:15 Last Admin: 06/19/18 16:21 Dose: 40 mg Glipizide (Glucotrol) 5 mg PO BID-AC [facility] Last Admin: 06/19/18 16:21 Dose: 5 mg Glucagon (Glucagon) 1 mg IM PRN PRN PRN Reason: HYPOGLYCEMIA PROTOCOL Dextrose/Water (D5w) 1,000 mls @ 0 mls/hr IV INF PRN PRN Reason: HYPOGLYCEMIA PROTOCOL Insulin Glargine 30 units/ (Miscellaneous Medication) 0.3 mls @ 0 mls/hr SC QAM [facility] Last Admin: 06/19/18 08:00 Dose: 0.3 mls Doxycycline Hyclate 100 mg/ (Sodium Chloride) 100 mls @ 100 mls/hr IVPB Q12HR [facility] Last Admin: 06/19/18 10:29 Dose: 100 mls Insulin Glargine 30 units/ (Miscellaneous Medication) 0.3 mls @ 0 mls/hr SC HS [facility] Last Admin: 06/18/18 21:17 Dose: 0.3 mls Amiodarone HCl 450 mg/Miscellaneous Medication 1 each/ Dextrose/Water 259 mls @ 0 mls/hr IVPB INF [facility]; Protocol Last Admin: 06/19/18 16:39 Dose: 259 mls Insulin Human Lispro (Humalog) 0 units SC .AGGRESSIVE SLIDING PRN; Protocol PRN Reason: AGGRESSIVE SLIDING SCALE Last Admin: 06/19/18 16:23 Dose: 9 unit Iron/Minerals/Multivitamins (Theragran M) 1 tab PO DAILY [facility] Last Admin: 06/19/18 10:31 Dose: 1 tab Isosorbide Mononitrate (Imdur) 60 mg PO DAILY [facility] Last Admin: 06/19/18 10:31 Dose: 60 mg Morphine Sulfate (Morphine) 2 mg SLOW IVP Q1H PRN PRN Reason: Moderate Pain (4-6) Last Admin: 06/18/18 02:02 Dose: 2 mg Morphine Sulfate (Morphine) 4 mg SLOW IVP Q1H PRN PRN Reason: Severe Pain (7-10) Last Admin: 06/17/18 17:21 Dose: 4 mg Nitroglycerin (Nitrostat) 0.4 mg SL Q5MIN PRN PRN Reason: Chest Pain Last Admin: 06/17/18 04:19 Dose: 0.4 mg Ondansetron HCl (Zofran) 4 mg IVP Q6H PRN PRN Reason: Nausea/Vomiting Last Admin: 06/19/18 06:09 Dose: 4 mg Rosuvastatin Calcium (Crestor) 10 mg PO DAILY [facility] Last Admin: 06/19/18 10:30 Dose: 10 mg Sodium Chloride (Flush - Normal Saline) 10 ml IVF PRN PRN PRN Reason: Saline Flush Sodium Chloride (Flush - Normal Saline) 10 ml IVF Q12HR [facility] Last Admin: 06/19/18 10:31 Dose: 10 ml Temazepam (Restoril) 30 mg PO HSPRN PRN PRN Reason: Insomnia Last Admin: 06/18/18 20:27 Dose: 30 mg Tramadol HCl (Ultram) 50 mg PO Q6H PRN PRN Reason: Mild Pain (1-3)
[2018-06-19] MEDS: fentaNYL 50 mcg/hour Patch TD SCH (18:59)
[2018-06-19] MEDS: traZODone HCl 50 MG TAB PO SCH (20:34)
[2018-06-19] MEDS: Temazepam 15 MG CAP PO PRN (20:34)
[2018-06-19] MEDS: Pregabalin 50 MG CAP PO SCH (20:35)
[2018-06-19] MEDS ORDERED: Enoxaparin Sodium 100 MG/ML SYRINGE SC SCH (21:00)
[2018-06-20 05:27] LABS: Anion Gap 15 mmol/L (10-20); BUN (Urea Nitrogen) 75 mg/dL (8.4-25.7); Calc. Creatinine Clearance 62 mL/min (70-130); Calcium 8.7 mg/dL (7.8-10.44); Carbon Dioxide 27 mmol/L (23-31); Chloride 93 mmol/L (98-107); Estimated GFR-MDRD 46; Glucose 318 mg/dL (83-110); Potassium 3.4 mmol/L (3.5-5.1); Sodium 132 mmol/L (136-145)
[2018-06-20] MEDS: HumaLOG 300 UNITS/3 ML VIAL SC PRN ×3 (06:16→17:38)
[2018-06-20] MEDS: Ondansetron PF 4 MG/2 ML Vial IVP PRN (09:17)
[2018-06-20] MEDS: Pregabalin 50 MG CAP PO SCH ×2 (09:18→20:16)
[2018-06-20] MEDS: glipiZIDE 10 MG TAB PO SCH ×2 (09:18→20:15)
[2018-06-20] MEDS: Rosuvastatin 10 MG TAB PO SCH (09:18)
[2018-06-20] MEDS: Carvedilol 3.125 MG TAB PO SCH ×2 (09:18→17:38)
[2018-06-20] MEDS: Aspirin 325 mg Enteric Coated Tablet PO SCH (09:18)
[2018-06-20] MEDS: Multivitamin W/ Minerals 1 TAB PO SCH (09:18)
[2018-06-20] MEDS: Enoxaparin Sodium 100 MG/ML SYRINGE SC SCH (09:19)
[2018-06-20] MEDS: HumuLIN 70/30 (300 UNITS/3 ML VIAL) SC SCH ×2 (09:20→23:42)
[2018-06-20] MEDS: Insulin Glargine 30 UNITS in Pre-Filled Syringe 1 EACH SC SCH ×2 (09:20→20:14)
[2018-06-20] MEDS ORDERED: Furosemide 40 MG/4 ML VIAL SLOW IVP SCH (12:00)
[2018-06-20] MEDS ORDERED: Spironolactone 25 MG TAB PO SCH (12:00)
--- NOTE | 2018-06-20 12:11 | PDOC.PN ---
- Subjective Encounter Start Date: 06/20/18 Encounter Start Time: 07:00 Subjective: no chest pain or sob but feels weak -: counselled to participate with cardiac rehab today - Objective Resuscitation Status - Order Detail: 06/17/18 01:48 Resuscitation Status Routine Resuscitation Status: DNAR: NO Resuscitation Discussed with: d/w patient at bedside MAR Reviewed: Yes Vital Signs & Weight: Vital Signs (12 hours) Temp Pulse Resp BP Pulse Ox 06/20/18 07:25 97.0 F L 79 24 H 118/75 94 L 06/20/18 07:19 92 L 06/20/18 04:16 98.6 F 79 27 H 114/72 95 06/20/18 02:37 75 06/20/18 01:40 94 L 06/20/18 01:10 97.8 F 82 20 98/59 L 95 Weight Admit Weight 210 lb 15.718 oz Weight 220 lb 4.8 oz Most Recent Monitor Data Heart Rate from ECG 64 NIBP 108/74 NIBP BP-Mean 85 Respiration from ECG 19 SpO2 92 I&O: 06/19/18 06/20/18 06/21/18 06:59 06:59 06:59 Intake Total 1767.8 1170 Output Total 1270 815 Balance 497.8 355 Result Diagrams: 06/19/18 04:45 06/20/18 04:34 Additional Labs: Accuchecks 06/20/18 06/20/18 06/19/18 11:24 06:05 20:29 POC Glucose 323 H 303 H 301 H 06/19/18 06/19/18 16:28 12:00 POC Glucose 284 H 344 H Phys Exam - Physical Examination HEENT: PERRLA, sclera anicteric Neck: no JVD, supple Respiratory: no wheezing, no rales Cardiovascular: no significant murmur, irregular Gastrointestinal: soft, no distention, positive bowel sounds Musculoskeletal: no edema, pulses present Neurological: non-focal, moves all 4 limbs Psychiatric: A&O x 3 Dx/Plan (1) Acute [place] Code(s): I21.9 - ACUTE MYOCARDIAL INFARCTION, UNSPECIFIED Status: Acute Qualifiers: Myocardial infarction type: non-ST elevation myocardial infarction Qualified Code(s): I21.4 - Non-ST elevation (NSTEMI) myocardial infarction Comment: for med treatment (2) ALISON (acute kidney injury) Code(s): N17.9 - ACUTE KIDNEY FAILURE, UNSPECIFIED Status: Acute (3) Metabolic acidosis Code(s): E87.2 - ACIDOSIS Status: Resolved (4) FLORY (obstructive sleep apnea) Code(s): G47.33 - OBSTRUCTIVE SLEEP APNEA (ADULT) (PEDIATRIC) Status: Chronic (5) Cardiogenic shock Code(s): R57.0 - CARDIOGENIC SHOCK Status: Resolved (6) DM2 (diabetes mellitus, type 2) Status: Chronic Qualifiers: Diabetes mellitus relay telegrapher insulin use: without custodial use Diabetes mellitus complication status: with unspecified complications Qualified Code(s) : E11.8 - Type 2 diabetes mellitus with unspecified complications Comment: uncontrolled (7) HTN (hypertension) Code(s): I10 - ESSENTIAL (PRIMARY) HYPERTENSION Status: Chronic Qualifiers: Hypertension type: essential hypertension Qualified Code(s): I10 - Essential (primary) hypertension - Plan is on iv lasix, hope renal function will hold up, is steadily increasing -: to mobilize with cardiac rehab, oob to chair, appears deconditioned -: is on amiodarone drip, asp, doxy, coreg, imdur -: increase glipizide to bid, add 70/30 bid, watch for hypoglycemia -: has been running high sugars with eating 50% or less of his meals * . Review of Systems - Medications/Allergies Allergies/Adverse Reactions: Allergies Allergy/AdvReac Type Severity Reaction Status Date / Time amoxicillin [Amoxicillin] Allergy Verified 05/30/16 08:08 Medications: Current Medications Acetaminophen/Codeine Phosphate (Tylenol #3) 1 tab PO Q4H PRN PRN Reason: Mild Pain (1-3) 2ND LINE Last Admin: 06/19/18 20:34 Dose: 1 tab Acetaminophen/Codeine Phosphate (Tylenol #3) 2 tab PO Q4H PRN PRN Reason: Moderate Pain (4-6) 2ND LINE Last Admin: 06/19/18 08:07 Dose: 2 tab Aspirin (Ecotrin) 325 mg PO DAILY [facility] Last Admin: 06/20/18 09:18 Dose: 325 mg Calcium Carbonate (Tums) 500 mg PO ONE PRN PRN Reason: .INDIGESTION Stop: 06/20/18 16:52 Last Admin: 06/19/18 16:58 Dose: 500 mg Carvedilol (Coreg) 3.125 mg PO BID-[facility] Last Admin: 06/20/18 09:18 Dose: 3.125 mg Dextrose/Water (Dextrose 50%) 25 gm IVP PRN PRN PRN Reason: HYPOGLYCEMIA PROTOCOL Enoxaparin Sodium (Lovenox) 100 mg SC DAILY [facility] Last Admin: 06/20/18 09:19 Dose: 100 mg Fentanyl (Duragesic) 50 mcg TD Q3D [facility] Last Admin: 06/19/18 18:59 Dose: 50 mcg Furosemide (Lasix) 40 mg SLOW IVP DAILY [facility] Furosemide (Lasix) 40 mg SLOW IVP NOW [facility] Stop: 06/20/18 14:00 Last Admin: 06/20/18 12:04 Dose: 40 mg Glipizide (Glucotrol) 10 mg PO BID [facility] Last Admin: 06/20/18 09:18 Dose: 10 mg Glucagon (Glucagon) 1 mg IM PRN PRN PRN Reason: HYPOGLYCEMIA PROTOCOL Dextrose/Water (D5w) 1,000 mls @ 0 mls/hr IV INF PRN PRN Reason: HYPOGLYCEMIA PROTOCOL Insulin Glargine 30 units/ (Miscellaneous Medication) 0.3 mls @ 0 mls/hr SC QAM [facility] Last Admin: 06/20/18 09:20 Dose: 0.3 mls Doxycycline Hyclate 100 mg/ (Sodium Chloride) 100 mls @ 100 mls/hr IVPB Q12HR [facility] Last Admin: 06/20/18 09:19 Dose: 100 mls Insulin Glargine 30 units/ (Miscellaneous Medication) 0.3 mls @ 0 mls/hr SC HS [facility] Last Admin: 06/19/18 20:36 Dose: 0.3 mls Amiodarone HCl 450 mg/Miscellaneous Medication 1 each/ Dextrose/Water 259 mls @ 0 mls/hr IVPB INF [facility]; Protocol Last Admin: 06/19/18 16:39 Dose: 259 mls Insulin Human Isoph/Insulin Regular (Humulin 70/30) 10 units SC BID [facility] Last Admin: 06/20/18 09:20 Dose: 10 unit Insulin Human Lispro (Humalog) 0 units SC .AGGRESSIVE SLIDING PRN; Protocol PRN Reason: AGGRESSIVE SLIDING SCALE Last Admin: 06/20/18 11:30 Dose: 11 unit Iron/Minerals/Multivitamins (Theragran M) 1 tab PO DAILY [facility] Last Admin: 06/20/18 09:18 Dose: 1 tab Isosorbide Mononitrate (Imdur) 60 mg PO DAILY [facility] Last Admin: 06/20/18 09:17 Dose: 60 mg Nitroglycerin (Nitrostat) 0.4 mg SL Q5MIN PRN PRN Reason: Chest Pain Last Admin: 06/17/18 04:19 Dose: 0.4 mg Ondansetron HCl (Zofran) 4 mg IVP Q6H PRN PRN Reason: Nausea/Vomiting Last Admin: 06/20/18 09:17 Dose: 4 mg Pregabalin (Lyrica) 50 mg PO BID [facility] Last Admin: 06/20/18 09:18 Dose: 50 mg Rosuvastatin Calcium (Crestor) 10 mg PO DAILY [facility] Last Admin: 06/20/18 09:18 Dose: 10 mg Sodium Chloride (Flush - Normal Saline) 10 ml IVF PRN PRN PRN Reason: Saline Flush Sodium Chloride (Flush - Normal Saline) 10 ml IVF Q12HR [facility] Last Admin: 06/20/18 09:21 Dose: 10 ml Spironolactone (Aldactone) 25 mg PO QAM-[facility] Spironolactone (Aldactone) 25 mg PO NOW [facility] Stop: 06/20/18 14:00 Last Admin: 06/20/18 12:04 Dose: 25 mg Temazepam (Restoril) 30 mg PO HSPRN PRN PRN Reason: Insomnia Last Admin: 06/19/18 20:34 Dose: 30 mg Tramadol HCl (Ultram) 50 mg PO Q6H PRN PRN Reason: Mild Pain (1-3) Trazodone HCl (Desyrel) 50 mg PO HS [facility] Last Admin: 06/19/18 20:34 Dose: 50 mg
[2018-06-20] MEDS: Simethicone Chewable 80 MG TAB PO PRN (17:38)
[2018-06-20] MEDS: cefTRIAXone\\ROCEPHIN 2 GM in Sodium Chloride 0.9% 100 ML IVPB SCH (20:15)
[2018-06-20] MEDS: Acetaminophen/Codeine 30-300mg Tablet PO PRN (20:16)
[2018-06-20] MEDS: traZODone HCl 50 MG TAB PO SCH (20:16)
--- NOTE | 2018-06-20 20:51 | PRG ---
DATE OF SERVICE: 06/20/2018 SUBJECTIVE: Mr. Mayo has been afebrile. OBJECTIVE: VITAL SIGNS: Heart rates in 80s, respiratory rates in the 20s, oximetry is 89 on a 4 L cannula. GENERAL: He is in no distress. He does appear to be extremely weak. He has a flat affect. EXTREMITIES: Continuous edema of all 4 extremities. LUNGS: He has crackles at his lung bases. HEART: Regular rhythm. ABDOMEN: Soft and protuberant. LABORATORY DATA: His white count is 11.7, hemoglobin 16.2, and platelets 115 yesterday. Sodium 133, potassium 3.4, chloride 93, bicarb 27, BUN 75, creatinine 1.49, and glucose over 300. IMPRESSION AND PLAN: 1. Status post myocardial infarction. 2. Status post acute respiratory failure, secondary to pulmonary edema and pneumonia. 3. Weakness and deconditioning. 4. Hyperglycemia. 5. 2/2 positive blood cultures for strep. It appears that this is not a contaminant. 6. He remains on doxycycline. He has an amoxicillin allergy. 7. We will add Rocephin for now until sensitivities are back. 8. He is a do not resuscitate patient. His weakness will be the limiting factor here as well as his depression. We will continue to follow with the other physicians who are following him. I met with the family in the room and answered all their questions. Job ID: [id number]
[2018-06-20] MEDS: Temazepam 15 MG CAP PO PRN (21:04)
[2018-06-20] MEDS: Haloperidol Lactate 5 MG/ML VIAL IM PRN (22:55)
[2018-06-21] MEDS: Haloperidol Lactate 5 MG/ML VIAL IM PRN (02:07)
[2018-06-21] MEDS: HumaLOG 300 UNITS/3 ML VIAL SC PRN (06:44)
[2018-06-21 07:02] LABS: Anion Gap 13 mmol/L (10-20); BUN (Urea Nitrogen) 87 mg/dL (8.4-25.7); Calc. Creatinine Clearance 63 mL/min (70-130); Calcium 8.8 mg/dL (7.8-10.44); Carbon Dioxide 30 mmol/L (23-31); Chloride 93 mmol/L (98-107); Estimated GFR-MDRD 43; Glucose 168 mg/dL (83-110); Potassium 3.1 mmol/L (3.5-5.1); Sodium 133 mmol/L (136-145)
[2018-06-21] MEDS: Multivitamin W/ Minerals 1 TAB PO SCH (09:56)
[2018-06-21] MEDS: Pregabalin 50 MG CAP PO SCH ×2 (09:56→21:08)
[2018-06-21] MEDS: Rosuvastatin 10 MG TAB PO SCH (09:57)
[2018-06-21] MEDS: Aspirin 325 mg Enteric Coated Tablet PO SCH (09:57)
[2018-06-21] MEDS: glipiZIDE 10 MG TAB PO SCH ×2 (09:57→21:09)
[2018-06-21] MEDS: Spironolactone 25 MG TAB PO SCH (09:57)
[2018-06-21] MEDS: Carvedilol 3.125 MG TAB PO SCH ×2 (09:57→17:16)
[2018-06-21] MEDS: Enoxaparin Sodium 100 MG/ML SYRINGE SC SCH (09:58)
[2018-06-21] MEDS: Insulin Glargine 30 UNITS in Pre-Filled Syringe 1 EACH SC SCH ×2 (09:59→21:07)
[2018-06-21] MEDS: Furosemide 40 MG/4 ML VIAL SLOW IVP SCH (09:59)
[2018-06-21] MEDS: HumuLIN 70/30 (300 UNITS/3 ML VIAL) SC SCH ×2 (10:01→21:07)
--- NOTE | 2018-06-21 13:25 | PDOC.PN ---
- Subjective Encounter Start Date: 06/21/18 Encounter Start Time: 09:15 Subjective: no sob or chest pain -: says he is too weak to walk or get up, encouraged to participate with cardi -: -ac rehab - Objective Resuscitation Status - Order Detail: 06/17/18 01:48 Resuscitation Status Routine Resuscitation Status: DNAR: NO Resuscitation Discussed with: d/w patient at bedside MAR Reviewed: Yes Vital Signs & Weight: Vital Signs (12 hours) Temp Pulse Pulse Pulse Resp BP BP 06/21/18 11:44 96.3 F L 61 18 06/21/18 10:13 93 94 114/72 115/66 06/21/18 07:40 06/21/18 07:38 06/21/18 07:20 96.2 F L 69 14 06/21/18 04:19 97.0 F L 70 19 BP Pulse Ox Pulse Ox Pulse Ox 06/21/18 11:44 110/66 93 L 06/21/18 10:13 91 L 93 L 06/21/18 07:40 92 L 06/21/18 07:38 93 L 06/21/18 07:20 101/66 92 L 06/21/18 04:19 100/61 93 L Weight Admit Weight 210 lb 15.718 oz Weight 229 lb 6.4 oz Most Recent Monitor Data Heart Rate from ECG 64 NIBP 108/74 NIBP BP-Mean 85 Respiration from ECG 19 SpO2 92 I&O: 06/20/18 06/21/18 06/22/18 06:59 06:59 06:59 Intake Total 1170 651 Output Total 815 200 Balance 355 451 Result Diagrams: 06/19/18 04:45 06/21/18 05:15 Additional Labs: Accuchecks 06/21/18 06/21/18 06/20/18 10:05 06:05 23:41 POC Glucose 190 H 174 H 198 H 06/20/18 06/20/18 20:09 16:41 POC Glucose 231 H 276 H Phys Exam - Physical Examination HEENT: PERRLA, moist MMs Neck: no JVD, supple Respiratory: no wheezing, no rales Cardiovascular: no significant murmur, irregular Gastrointestinal: soft, non-tender, positive bowel sounds Musculoskeletal: no edema, pulses present Neurological: non-focal, moves all 4 limbs Psychiatric: A&O x 3 Dx/Plan (1) Acute [place] Code(s): I21.9 - ACUTE MYOCARDIAL INFARCTION, UNSPECIFIED Status: Acute Qualifiers: Myocardial infarction type: non-ST elevation myocardial infarction Qualified Code(s): I21.4 - Non-ST elevation (NSTEMI) myocardial infarction Comment: for med treatment (2) ALISON (acute kidney injury) Code(s): N17.9 - ACUTE KIDNEY FAILURE, UNSPECIFIED Status: Acute (3) Metabolic acidosis Code(s): E87.2 - ACIDOSIS Status: Resolved (4) FLORY (obstructive sleep apnea) Code(s): G47.33 - OBSTRUCTIVE SLEEP APNEA (ADULT) (PEDIATRIC) Status: Chronic (5) Cardiogenic shock Code(s): R57.0 - CARDIOGENIC SHOCK Status: Resolved (6) DM2 (diabetes mellitus, type 2) Status: Chronic Qualifiers: Diabetes mellitus exercise specialist insulin use: without nursing home use Diabetes mellitus complication status: with unspecified complications Qualified Code(s) : E11.8 - Type 2 diabetes mellitus with unspecified complications Comment: uncontrolled (7) HTN (hypertension) Code(s): I10 - ESSENTIAL (PRIMARY) HYPERTENSION Status: Chronic Qualifiers: Hypertension type: essential hypertension Qualified Code(s): I10 - Essential (primary) hypertension (8) Physical deconditioning Code(s): R53.81 - OTHER MALAISE Status: Acute - Plan is severely deconditioned, encourage oob to chair/amb -: is on amiodarone drip, asp, full renal dose lovenox, coreg, imdur -: lasix iv and spironolactone per , watch for renal function -: remove central line and get midline access -: is on ceftriaxone and doxy, nebs prn * . Review of Systems - Medications/Allergies Allergies/Adverse Reactions: Allergies Allergy/AdvReac Type Severity Reaction Status Date / Time amoxicillin [Amoxicillin] Allergy Verified 05/30/16 08:08 Medications: Current Medications Acetaminophen/Codeine Phosphate (Tylenol #3) 1 tab PO Q4H PRN PRN Reason: Mild Pain (1-3) 2ND LINE Last Admin: 06/20/18 20:16 Dose: 1 tab Acetaminophen/Codeine Phosphate (Tylenol #3) 2 tab PO Q4H PRN PRN Reason: Moderate Pain (4-6) 2ND LINE Last Admin: 06/19/18 08:07 Dose: 2 tab Aspirin (Ecotrin) 325 mg PO DAILY [facility] Last Admin: 06/21/18 09:57 Dose: 325 mg Carvedilol (Coreg) 3.125 mg PO BID-[facility] Last Admin: 06/21/18 09:57 Dose: 3.125 mg Dextrose/Water (Dextrose 50%) 25 gm IVP PRN PRN PRN Reason: HYPOGLYCEMIA PROTOCOL Enoxaparin Sodium (Lovenox) 100 mg SC DAILY [facility] Last Admin: 06/21/18 09:58 Dose: 100 mg Fentanyl (Duragesic) 50 mcg TD Q3D [facility] Last Admin: 06/19/18 18:59 Dose: 50 mcg Furosemide (Lasix) 40 mg SLOW IVP DAILY [facility] Last Admin: 06/21/18 09:59 Dose: 40 mg Glipizide (Glucotrol) 10 mg PO BID [facility] Last Admin: 06/21/18 09:57 Dose: 10 mg Glucagon (Glucagon) 1 mg IM PRN PRN PRN Reason: HYPOGLYCEMIA PROTOCOL Haloperidol Lactate (Haldol) 2 mg IM Q2H PRN PRN Reason: Agitation Last Admin: 06/21/18 02:07 Dose: 2 mg Dextrose/Water (D5w) 1,000 mls @ 0 mls/hr IV INF PRN PRN Reason: HYPOGLYCEMIA PROTOCOL Insulin Glargine 30 units/ (Miscellaneous Medication) 0.3 mls @ 0 mls/hr SC QAM [facility] Last Admin: 06/21/18 09:59 Dose: 0.3 mls Doxycycline Hyclate 100 mg/ (Sodium Chloride) 100 mls @ 100 mls/hr IVPB Q12HR [facility] Last Admin: 06/21/18 09:58 Dose: 100 mls Insulin Glargine 30 units/ (Miscellaneous Medication) 0.3 mls @ 0 mls/hr SC HS [facility] Last Admin: 06/20/18 20:14 Dose: 0.3 mls Amiodarone HCl 450 mg/Miscellaneous Medication 1 each/ Dextrose/Water 259 mls @ 0 mls/hr IVPB INF [facility]; Protocol Last Admin: 06/19/18 16:39 Dose: 259 mls Ceftriaxone Sodium 2 gm/ (Sodium Chloride) 100 mls @ 200 mls/hr IVPB 2100 [facility] Last Admin: 06/20/18 20:15 Dose: 100 mls Insulin Human Isoph/Insulin Regular (Humulin 70/30) 10 units SC BID [facility] Last Admin: 06/21/18 10:01 Dose: 10 unit Insulin Human Lispro (Humalog) 0 units SC .AGGRESSIVE SLIDING PRN; Protocol PRN Reason: AGGRESSIVE SLIDING SCALE Last Admin: 06/21/18 06:44 Dose: 3 unit Iron/Minerals/Multivitamins (Theragran M) 1 tab PO DAILY [facility] Last Admin: 06/21/18 09:56 Dose: 1 tab Isosorbide Mononitrate (Imdur) 60 mg PO DAILY [facility] Last Admin: 06/21/18 09:57 Dose: 60 mg Nitroglycerin (Nitrostat) 0.4 mg SL Q5MIN PRN PRN Reason: Chest Pain Last Admin: 06/17/18 04:19 Dose: 0.4 mg Ondansetron HCl (Zofran) 4 mg IVP Q6H PRN PRN Reason: Nausea/Vomiting Last Admin: 06/20/18 09:17 Dose: 4 mg Pregabalin (Lyrica) 50 mg PO BID [facility] Last Admin: 06/21/18 09:56 Dose: 50 mg Rosuvastatin Calcium (Crestor) 10 mg PO DAILY [facility] Last Admin: 06/21/18 09:57 Dose: 10 mg Simethicone (Mylicon Chewable) 80 mg PO PCHS PRN PRN Reason: Gas Pain Last Admin: 06/20/18 17:38 Dose: 80 mg Sodium Chloride (Flush - Normal Saline) 10 ml IVF PRN PRN PRN Reason: Saline Flush Sodium Chloride (Flush - Normal Saline) 10 ml IVF Q12HR [facility] Last Admin: 06/21/18 10:04 Dose: 10 ml Spironolactone (Aldactone) 25 mg PO QAM-[facility] Last Admin: 06/21/18 09:57 Dose: 25 mg Temazepam (Restoril) 30 mg PO HSPRN PRN PRN Reason: Insomnia Last Admin: 06/20/18 21:04 Dose: 30 mg Tramadol HCl (Ultram) 50 mg PO Q6H PRN PRN Reason: Mild Pain (1-3) Trazodone HCl (Desyrel) 50 mg PO HS [facility] Last Admin: 06/20/18 20:16 Dose: 50 mg
--- NOTE | 2018-06-21 15:53 | PRG ---
DATE OF SERVICE: 06/21/2018 SUBJECTIVE: Mr. Mayo is telling the nurses that he is ready to . OBJECTIVE: GENERAL: He is now better. VITAL SIGNS: He is afebrile. Heart rate is 60, respiratory rate 18, oximetry is 93%, and blood pressure 114/72. LUNGS: Remarkable for crackles at both bases. HEART: Regular rhythm. ABDOMEN: Soft. LABORATORY DATA: Sodium 133, potassium 3.1, chloride 93, bicarb 30, BUN 87, and creatinine 1.59. IMPRESSION: 1. Myocardial infarction. 2. Pneumonia. 3. Cardiogenic pulmonary edema. 4. Hyperglycemia. 5. Multiple positive blood cultures, strep bacteremia. Generally, it is a setup for endocarditis. His antibiotics were adjusted yesterday. Actually, palliative Care probably is the best option. He refused to eat this morning. He did say he would be willing to try to take some Ensure. His prognosis is terrible. His weakness is the biggest issue at this time. He appears much older than his age of 72 years. Will remain in Intermediate Care Unit for now. Job ID: [id number]
[2018-06-21] MEDS: cefTRIAXone\\ROCEPHIN 2 GM in Sodium Chloride 0.9% 100 ML IVPB SCH (21:08)
[2018-06-21] MEDS: traZODone HCl 50 MG TAB PO SCH (21:09)
[2018-06-21] MEDS: Temazepam 15 MG CAP PO PRN (23:52)
[2018-06-22 05:53] LABS: Hemoglobin 15.7 g/dL (14.0-18.0); Platelet Count 165 thou/uL (130-400)
[2018-06-22 06:04] LABS: Anion Gap 14 mmol/L (10-20); BUN (Urea Nitrogen) 71 mg/dL (8.4-25.7); Calc. Creatinine Clearance 85 mL/min (70-130); Calcium 8.9 mg/dL (7.8-10.44); Carbon Dioxide 29 mmol/L (23-31); Chloride 95 mmol/L (98-107); Estimated GFR-MDRD 61; Sodium 135 mmol/L (136-145)
[2018-06-22 06:10] LABS: Glucose 46 mg/dL (83-110)
[2018-06-22] MEDS: Insulin Glargine 30 UNITS in Pre-Filled Syringe 1 EACH SC SCH ×2 (08:59→20:33)
[2018-06-22] MEDS: Furosemide 40 MG/4 ML VIAL SLOW IVP SCH (08:59)
[2018-06-22] MEDS: Spironolactone 25 MG TAB PO SCH (08:59)
[2018-06-22] MEDS: Enoxaparin Sodium 100 MG/ML SYRINGE SC SCH (08:59)
[2018-06-22] MEDS: Carvedilol 3.125 MG TAB PO SCH ×2 (08:59→17:14)
[2018-06-22] MEDS: Aspirin 325 mg Enteric Coated Tablet PO SCH (08:59)
[2018-06-22] MEDS: Multivitamin W/ Minerals 1 TAB PO SCH (09:00)
[2018-06-22] MEDS: Pregabalin 50 MG CAP PO SCH ×2 (09:00→20:33)
[2018-06-22] MEDS: Rosuvastatin 10 MG TAB PO SCH (09:01)
--- NOTE | 2018-06-22 09:05 | PRG ---
DATE OF SERVICE: 06/22/2018 SUBJECTIVE: He is apparently wearing BiPAP alternating with a Ventimask. Does not look very good. OBJECTIVE: VITAL SIGNS: Temperature 96.7, pulse 78, respirations 12, saturation 97% on BiPAP, blood pressure 102/69. HEENT: Unremarkable. NECK: No JVD. LUNGS: Coarse breath sounds. CARDIAC: S1 and S2, regular. ABDOMEN: Soft. EXTREMITIES: Trace edema. LABORATORY DATA: Hematocrit 47 and platelet count 165. Sodium 135, potassium 3, chloride 95, CO2 of 29, BUN 71, creatinine 1.2, glucose 46. The patient has gotten multiple positive blood cultures. ASSESSMENT: 1. Possible endocarditis given multiple blood cultures positive. 2. Acute hypoxic respiratory failure. 3. Myocardial infarction. RECOMMENDATIONS: This patient does not want much done. I think we should focus on his comfort. I will go ahead and stop the doxycycline. I have encouraged the nurses to take the BiPAP off. I would think inpatient hospice would be the most reasonable course to pursue. Job ID: [id number]
[2018-06-22] MEDS ORDERED: Bisacodyl 10 MG SUPP PR SCH (12:00)
[2018-06-22] MEDS ORDERED: Potassium Chloride 20 MEQ TAB PO SCH (12:30)
--- NOTE | 2018-06-22 13:28 | PDOC.PN ---
- Subjective Encounter Start Date: 06/22/18 Encounter Start Time: 12:30 Subjective: no chest pain or sob -: is sitting in chair - Objective Resuscitation Status - Order Detail: 06/17/18 01:48 Resuscitation Status Routine Resuscitation Status: DNAR: NO Resuscitation Discussed with: d/w patient at bedside MAR Reviewed: Yes Vital Signs & Weight: Vital Signs (12 hours) Temp Pulse Resp BP BP Pulse Ox 06/22/18 12:00 98 06/22/18 11:17 98.2 F 80 24 H 94/64 97 06/22/18 08:00 97 06/22/18 07:23 96.7 F L 78 12 102/69 97 Weight Admit Weight 210 lb 15.718 oz Weight 223 lb Most Recent Monitor Data Heart Rate from ECG 64 NIBP 108/74 NIBP BP-Mean 85 Respiration from ECG 19 SpO2 92 I&O: 06/21/18 06/22/18 06/23/18 06:59 06:59 06:59 Intake Total 1605 Output Total 2800 Balance -1195 Result Diagrams: 06/22/18 05:07 06/22/18 05:07 Additional Labs: Accuchecks 06/22/18 06/22/18 06/22/18 10:57 06:00 05:29 POC Glucose 131 H 94 61 L 06/21/18 06/21/18 20:39 17:05 POC Glucose 140 H 123 H Phys Exam - Physical Examination HEENT: PERRLA, moist MMs Neck: no JVD, supple Respiratory: no wheezing, no rales Cardiovascular: RRR, no significant murmur Gastrointestinal: soft, non-tender, positive bowel sounds Musculoskeletal: no edema, pulses present Neurological: non-focal, moves all 4 limbs Psychiatric: normal affect, A&O x 3 Dx/Plan (1) Acute DC Code(s): I21.9 - ACUTE MYOCARDIAL INFARCTION, UNSPECIFIED Status: Acute Qualifiers: Myocardial infarction type: non-ST elevation myocardial infarction Qualified Code(s): I21.4 - Non-ST elevation (NSTEMI) myocardial infarction Comment: for med treatment (2) ALISON (acute kidney injury) Code(s): N17.9 - ACUTE KIDNEY FAILURE, UNSPECIFIED Status: Acute (3) Metabolic acidosis Code(s): E87.2 - ACIDOSIS Status: Resolved (4) FLORY (obstructive sleep apnea) Code(s): G47.33 - OBSTRUCTIVE SLEEP APNEA (ADULT) (PEDIATRIC) Status: Chronic (5) Cardiogenic shock Code(s): R57.0 - CARDIOGENIC SHOCK Status: Resolved (6) DM2 (diabetes mellitus, type 2) Status: Chronic Qualifiers: 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: without jail use Diabetes mellitus complication status: with unspecified complications Qualified Code(s) : E11.8 - Type 2 diabetes mellitus with unspecified complications Comment: labile (7) HTN (hypertension) Code(s): I10 - ESSENTIAL (PRIMARY) HYPERTENSION Status: Chronic Qualifiers: Hypertension type: essential hypertension Qualified Code(s): I10 - Essential (primary) hypertension (8) Physical deconditioning Code(s): R53.81 - OTHER MALAISE Status: Acute - Plan dm is labile with fingerstick dipping into 50's -: dc glipizide and 70/30, hold am lantus dose -: has 4 cultures + for strep agalactaie, on ceftriaxone -: echo-tte did not reveal any thrombus/veg, might need DENI -: continue asp, eliquis, amiodarone, coreg, spironolactone and lasix * . Review of Systems - Medications/Allergies Allergies/Adverse Reactions: Allergies Allergy/AdvReac Type Severity Reaction Status Date / Time amoxicillin [Amoxicillin] Allergy Verified 05/30/16 08:08 Medications: Current Medications Acetaminophen/Codeine Phosphate (Tylenol #3) 1 tab PO Q4H PRN PRN Reason: Mild Pain (1-3) 2ND LINE Last Admin: 06/20/18 20:16 Dose: 1 tab Acetaminophen/Codeine Phosphate (Tylenol #3) 2 tab PO Q4H PRN PRN Reason: Moderate Pain (4-6) 2ND LINE Last Admin: 06/19/18 08:07 Dose: 2 tab Apixaban (Eliquis) 5 mg PO BID [facility] Aspirin (Ecotrin) 325 mg PO DAILY [facility] Stop: 06/22/18 23:59 Last Admin: 06/22/18 08:59 Dose: 325 mg Aspirin (Ecotrin) 81 mg PO DAILY [facility] Bisacodyl (Dulcolax) 10 mg [place] NOW [facility] Stop: 06/22/18 14:00 Last Admin: 06/22/18 12:23 Dose: 10 mg Carvedilol (Coreg) 3.125 mg PO BID-WM [facility] Last Admin: 06/22/18 08:59 Dose: 3.125 mg Dextrose/Water (Dextrose 50%) 25 gm IVP PRN PRN PRN Reason: HYPOGLYCEMIA PROTOCOL Fentanyl (Duragesic) 50 mcg TD Q3D [facility] Last Admin: 06/19/18 18:59 Dose: 50 mcg Furosemide (Lasix) 40 mg SLOW IVP DAILY [facility] Last Admin: 06/22/18 08:59 Dose: 40 mg Glucagon (Glucagon) 1 mg IM PRN PRN PRN Reason: HYPOGLYCEMIA PROTOCOL Dextrose/Water (D5w) 1,000 mls @ 0 mls/hr IV INF PRN PRN Reason: HYPOGLYCEMIA PROTOCOL Insulin Glargine 30 units/ (Miscellaneous Medication) 0.3 mls @ 0 mls/hr SC QAM [facility] Last Admin: 06/22/18 08:59 Dose: 0.3 mls Insulin Glargine 30 units/ (Miscellaneous Medication) 0.3 mls @ 0 mls/hr SC HS [facility] Last Admin: 06/21/18 21:07 Dose: 0.3 mls Ceftriaxone Sodium 2 gm/ (Sodium Chloride) 100 mls @ 200 mls/hr IVPB 2100 [facility] Last Admin: 06/21/18 21:08 Dose: 100 mls Insulin Human Lispro (Humalog) 0 units SC .AGGRESSIVE SLIDING PRN; Protocol PRN Reason: AGGRESSIVE SLIDING SCALE Last Admin: 06/21/18 06:44 Dose: 3 unit Iron/Minerals/Multivitamins (Theragran M) 1 tab PO DAILY [facility] Last Admin: 06/22/18 09:00 Dose: 1 tab Isosorbide Mononitrate (Imdur) 60 mg PO DAILY [facility] Last Admin: 06/22/18 09:00 Dose: 60 mg Nitroglycerin (Nitrostat) 0.4 mg SL Q5MIN PRN PRN Reason: Chest Pain Last Admin: 06/17/18 04:19 Dose: 0.4 mg Ondansetron HCl (Zofran) 4 mg IVP Q6H PRN PRN Reason: Nausea/Vomiting Last Admin: 06/20/18 09:17 Dose: 4 mg Potassium Chloride (K-Dur) 40 meq PO NOW [facility] Stop: 06/22/18 14:30 Last Admin: 06/22/18 12:23 Dose: 40 meq Pregabalin (Lyrica) 50 mg PO BID [facility] Last Admin: 06/22/18 09:00 Dose: 50 mg Rosuvastatin Calcium (Crestor) 10 mg PO DAILY [facility] Last Admin: 06/22/18 09:01 Dose: 10 mg Simethicone (Mylicon Chewable) 80 mg PO PCHS PRN PRN Reason: Gas Pain Last Admin: 06/20/18 17:38 Dose: 80 mg Sodium Chloride (Flush - Normal Saline) 10 ml IVF PRN PRN PRN Reason: Saline Flush Sodium Chloride (Flush - Normal Saline) 10 ml IVF Q12HR [facility] Last Admin: 06/22/18 09:01 Dose: 10 ml Spironolactone (Aldactone) 25 mg PO QAM-WM [facility] Last Admin: 06/22/18 08:59 Dose: 25 mg Temazepam (Restoril) 30 mg PO HSPRN PRN PRN Reason: Insomnia Last Admin: 06/21/18 23:52 Dose: 30 mg Tramadol HCl (Ultram) 50 mg PO Q6H PRN PRN Reason: Mild Pain (1-3) Trazodone HCl (Desyrel) 50 mg PO HS [facility] Last Admin: 06/21/18 21:09 Dose: 50 mg
[2018-06-22] MEDS: fentaNYL 50 mcg/hour Patch TD SCH (17:14)
[2018-06-22] MEDS ORDERED: Fleet Enema 133 ML BOT PR SCH (18:00)
[2018-06-22] MEDS: cefTRIAXone\\ROCEPHIN 2 GM in Sodium Chloride 0.9% 100 ML IVPB SCH (20:33)
[2018-06-22] MEDS: Apixaban 5 MG TAB PO SCH (20:34)
[2018-06-22] MEDS: traZODone HCl 50 MG TAB PO SCH (20:34)
[2018-06-22] MEDS: Temazepam 15 MG CAP PO PRN (23:18)
--- NOTE | 2018-06-23 07:49 | CON ---
DATE OF CONSULTATION: TYPE OF CONSULTATION: Brief electrophysiology. I was asked to see Mr. Mayo for atrial flutter by Dr. Hannah. HISTORY OF PRESENT ILLNESS: Mr. Mayo is a 68-year-old gentleman with a long history of known coronary artery disease and previous interventions. He presents with a [id number] myocardial infarction. He had crescendo angina over the past 5 months and was taken to the cardiac catheterization laboratory, and had revascularization performed. He developed pulmonary edema and cardiogenic shock, and was noted also to be in atrial flutter that appears to be isthmus dependent. His ejection fraction was found to be in the 15% to 20% range. He is unaware of the atrial arrhythmia and he has no history of strokes. He was just recently started on Eliquis. PAST MEDICAL HISTORY: Notable for hypertension, hypercholesterolemia, diabetes, obesity, and coronary artery disease. SOCIAL HISTORY: He is attended to by his . REVIEW OF SYSTEMS: Negative for fevers or chills. No change in vision or hearing. No TIA or strokes. No further chest pain. Some shortness of breath. No abdominal pain, melena, hematochezia, frequency, or dysuria. PHYSICAL EXAMINATION: GENERAL: He is a well-developed and well-nourished gentleman. No acute distress, but acutely ill in the ICU. He is oriented to place and person. No other family members are present. VITAL SIGNS: Blood pressure is in the 94/60 range, heart rate is 80, and respiratory rate is 18. NECK: Supple. CHEST: Clear. Respiratory effort is normal. CARDIAC: He has a slightly irregular rate without heaves. PMI is displaced laterally. ABDOMEN: Obese and nontender. EXTREMITIES: Warm and well perfused. DIAGNOSTIC DATA: EKG appears to represent what is an isthmus-dependent counterclockwise atrial flutter, cycle length around 210 to 220 ms with a variable ventricular rate. IMPRESSION: 1. Relatively new onset atrial flutter. 2. Chronic systolic dysfunction, ejection fraction of 15% to 20%. 3. Left bundle branch block pattern. 4. Recent [id number] myocardial infarction with revascularization performed with drug-eluting stents. 5. Hypertension. 6. Obesity. 7. Diabetes. RECOMMENDATION: In light of his cardiogenic shock and heart failure, his atrial flutter is clearly contributing to this picture and ultimately orthodoxy of sinus mechanism would be helpful from a cardiac output standpoint. Fortunately, he has just recently started the Eliquis and for that reason, I think he should undergo a transesophageal echo when possible to make sure there is no evidence of a left atrial appendage thrombus, so that he can either undergo catheter ablation versus atrial flutter or cardioversion to restore sinus mechanism in anticipation of a future atrial flutter ablation. Ultimately, if his left ventricular function does not improve, he may be a candidate for resynchronization pacing. It is felt that he has a reasonable quality of life and longevity. This could be on an ICD platform versus a permanent pacemaker. I have discussed at least through introduction the concept of atrial flutter, the rationale for affixing a particular rhythm, catheter ablation with its attendant risks, benefits, expectations, and alternatives, and I am not sure he is completely within enough to remember all those details, but we will have plenty of opportunities to discuss with other family members moving into this. We could plan on potentially catheter ablation later this week. Job ID: [id number]
--- NOTE | 2018-06-23 08:26 | RAD ---
CHEST ONE VIEW: HISTORY: Chest pain. Pulmonary edema. COMPARISON: 06/19/2018 FINDINGS: There is layering right pleural effusion. The lung infiltrates have improved from the comparison exa mination. There is a small left effusion and left air space opacity. Multiple midline sternotomy wires. IMPRESSION: 1. Mild improvement of the infiltrates seen on the prior examination, likely improving edema. 2. Small effusion on the left and small to moderate on the right. 3. Mild pulmonary arterial hypertension. POS: [facility]
--- NOTE | 2018-06-23 09:19 | PRG ---
DATE OF SERVICE: 06/23/2018 SUBJECTIVE: The patient changes mind regarding code status and is now going forward with more aggressive measures. He continues to use BiPAP intermittently mainly for comfort and not due to hypoxemia. OBJECTIVE: VITAL SIGNS: Temperature 97.8, pulse 82, respirations 25, O2 saturation 98%, blood pressure 112/74. HEENT: Unremarkable. NECK: No JVD. LUNGS: Pretty clear anteriorly bilaterally. CARDIOVASCULAR: S1, S2. Regular. ABDOMEN: Soft. EXTREMITIES: No edema. LABORATORY DATA: No new labs were done today. ASSESSMENT: 1. Atrial flutter. 2. Myocardial infarction. 3. Congestive heart failure. 4. Possible right lower lobe pneumonia. 5. Group B Streptococcus septicemia. RECOMMENDATIONS: The patient is anticoagulated on Eliquis. He continues treatment with Rocephin for the bacteremia. His central line was taken out a couple of days ago. If measures are taken to go forward with aggressive cardiac procedures, the patient may need to be intubated to facilitate those procedures as his respiratory status would be fairly tenuous, otherwise. Job ID: [id number]
[2018-06-23] MEDS: Spironolactone 25 MG TAB PO SCH (09:22)
[2018-06-23] MEDS: Carvedilol 3.125 MG TAB PO SCH ×2 (09:22→16:40)
[2018-06-23] MEDS: Multivitamin W/ Minerals 1 TAB PO SCH (09:23)
[2018-06-23] MEDS: Aspirin 81 mg Enteric Coated Tablet PO SCH (09:23)
[2018-06-23] MEDS: Pregabalin 50 MG CAP PO SCH ×2 (09:23→20:15)
[2018-06-23] MEDS: Insulin Glargine 20 UNITS in Pre-Filled Syringe 1 EACH SC SCH ×2 (09:23→20:17)
[2018-06-23] MEDS: Furosemide 40 MG/4 ML VIAL SLOW IVP SCH (09:23)
[2018-06-23] MEDS: Apixaban 5 MG TAB PO SCH ×2 (09:23→20:15)
[2018-06-23] MEDS: Rosuvastatin 10 MG TAB PO SCH (09:24)
--- NOTE | 2018-06-23 11:13 | PDOC.PN ---
- Subjective Encounter Start Date: 06/23/18 Encounter Start Time: 07:30 Subjective: awake, no sob or palp -: feels better this morning - Objective Resuscitation Status - Order Detail: 06/17/18 01:48 Resuscitation Status Routine Resuscitation Status: FULL: Full Resuscitation Discussed with: d/w patient at bedside 06/22/18 15:13 Resuscitation Status Routine Resuscitation Status: FULL: Full Resuscitation MAR Reviewed: Yes Vital Signs & Weight: Vital Signs (12 hours) Temp Pulse Resp BP Pulse Ox 06/23/18 11:01 97.8 F 87 30 H 103/65 98 06/23/18 08:00 98 06/23/18 07:32 97.8 F 82 25 H 112/74 98 06/23/18 06:38 80 99 06/23/18 04:26 98.1 F 80 24 H 105/69 99 06/23/18 04:24 80 06/23/18 00:32 98.4 F 81 17 101/79 100 06/23/18 00:22 81 Weight Admit Weight 210 lb 15.718 oz Weight 220 lb 1.6 oz Most Recent Monitor Data Heart Rate from ECG 64 NIBP 108/74 NIBP BP-Mean 85 Respiration from ECG 19 SpO2 92 I&O: 06/22/18 06/23/18 06/24/18 06:59 06:59 06:59 Intake Total 1605 Output Total 2800 650 Balance -1195 -650 Result Diagrams: 06/22/18 05:07 06/22/18 05:07 Additional Labs: Accuchecks 06/23/18 06/23/18 06/22/18 06:02 00:46 20:07 POC Glucose 88 101 93 06/22/18 16:46 POC Glucose 101 Phys Exam - Physical Examination HEENT: PERRLA, moist MMs Neck: no JVD, supple Respiratory: no wheezing, no rales Cardiovascular: no significant murmur, irregular Gastrointestinal: soft, non-tender, positive bowel sounds Musculoskeletal: no edema, pulses present Neurological: non-focal, moves all 4 limbs Psychiatric: normal affect, A&O x 3 Dx/Plan (1) Acute CA Code(s): I21.9 - ACUTE MYOCARDIAL INFARCTION, UNSPECIFIED Status: Acute Qualifiers: Myocardial infarction type: non-ST elevation myocardial infarction Qualified Code(s): I21.4 - Non-ST elevation (NSTEMI) myocardial infarction Comment: for med treatment (2) ALISON (acute kidney injury) Code(s): N17.9 - ACUTE KIDNEY FAILURE, UNSPECIFIED Status: Acute (3) Metabolic acidosis Code(s): E87.2 - ACIDOSIS Status: Resolved (4) FLORY (obstructive sleep apnea) Code(s): G47.33 - OBSTRUCTIVE SLEEP APNEA (ADULT) (PEDIATRIC) Status: Chronic (5) Cardiogenic shock Code(s): R57.0 - CARDIOGENIC SHOCK Status: Resolved (6) DM2 (diabetes mellitus, type 2) Status: Chronic Qualifiers: 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: without penitentiary use Diabetes mellitus complication status: with unspecified complications Qualified Code(s) : E11.8 - Type 2 diabetes mellitus with unspecified complications Comment: labile (7) HTN (hypertension) Code(s): I10 - ESSENTIAL (PRIMARY) HYPERTENSION Status: Chronic Qualifiers: Hypertension type: essential hypertension Qualified Code(s): I10 - Essential (primary) hypertension (8) Physical deconditioning Code(s): R53.81 - OTHER MALAISE Status: Acute (9) Atrial flutter Code(s): I48.92 - UNSPECIFIED ATRIAL FLUTTER Status: Acute Qualifiers: Atrial flutter type: unspecified Qualified Code(s): I48.92 - Unspecified atrial flutter (10) Sepsis Code(s): A41.9 - SEPSIS, UNSPECIFIED ORGANISM Status: Acute Qualifiers: Sepsis type: Streptococcus group B Qualified Code(s): A40.1 - Sepsis due to streptococcus, group B (11) Bacteremia Code(s): R78.81 - BACTEREMIA Status: Acute Comment: strep agalactiae - Plan is on ceftriaxone, eliquis, watch for renal function -: asp, coreg, lasix, spironolactone, imdur -: DENI to r/o veg/thrombus, has bacteremia -: sat in chair with PT so far, will need to amb more -: will need swing bed for severe deconditioning * . Review of Systems - Medications/Allergies Allergies/Adverse Reactions: Allergies Allergy/AdvReac Type Severity Reaction Status Date / Time amoxicillin [Amoxicillin] Allergy Verified 05/30/16 08:08 Medications: Current Medications Acetaminophen/Codeine Phosphate (Tylenol #3) 1 tab PO Q4H PRN PRN Reason: Mild Pain (1-3) 2ND LINE Last Admin: 06/20/18 20:16 Dose: 1 tab Acetaminophen/Codeine Phosphate (Tylenol #3) 2 tab PO Q4H PRN PRN Reason: Moderate Pain (4-6) 2ND LINE Last Admin: 06/19/18 08:07 Dose: 2 tab Apixaban (Eliquis) 5 mg PO BID [facility] Last Admin: 06/23/18 09:23 Dose: 5 mg Aspirin (Ecotrin) 81 mg PO DAILY [facility] Last Admin: 06/23/18 09:23 Dose: 81 mg Carvedilol (Coreg) 3.125 mg PO BID-[facility] Last Admin: 06/23/18 09:22 Dose: 3.125 mg Dextrose/Water (Dextrose 50%) 25 gm IVP PRN PRN PRN Reason: HYPOGLYCEMIA PROTOCOL Fentanyl (Duragesic) 50 mcg TD Q3D [facility] Last Admin: 06/22/18 17:14 Dose: 50 mcg Furosemide (Lasix) 40 mg SLOW IVP DAILY [facility] Last Admin: 06/23/18 09:23 Dose: 40 mg Glucagon (Glucagon) 1 mg IM PRN PRN PRN Reason: HYPOGLYCEMIA PROTOCOL Dextrose/Water (D5w) 1,000 mls @ 0 mls/hr IV INF PRN PRN Reason: HYPOGLYCEMIA PROTOCOL Ceftriaxone Sodium 2 gm/ (Sodium Chloride) 100 mls @ 200 mls/hr IVPB 2100 [facility] Last Admin: 06/22/18 20:33 Dose: 100 mls Insulin Glargine 20 units/ (Miscellaneous Medication) 0.2 mls @ 0 mls/hr SC HS [facility] Insulin Glargine 20 units/ (Miscellaneous Medication) 0.2 mls @ 0 mls/hr SC QAM [facility] Last Admin: 06/23/18 09:23 Dose: 0.2 mls Insulin Human Lispro (Humalog) 0 units SC .AGGRESSIVE SLIDING PRN; Protocol PRN Reason: AGGRESSIVE SLIDING SCALE Last Admin: 06/21/18 06:44 Dose: 3 unit Iron/Minerals/Multivitamins (Theragran M) 1 tab PO DAILY [facility] Last Admin: 06/23/18 09:23 Dose: 1 tab Isosorbide Mononitrate (Imdur) 60 mg PO DAILY [facility] Last Admin: 12/18/18 09:23 Dose: 60 mg Nitroglycerin (Nitrostat) 0.4 mg SL Q5MIN PRN PRN Reason: Chest Pain Last Admin: 06/17/18 04:19 Dose: 0.4 mg Ondansetron HCl (Zofran) 4 mg IVP Q6H PRN PRN Reason: Nausea/Vomiting Last Admin: 06/20/18 09:17 Dose: 4 mg Pregabalin (Lyrica) 50 mg PO BID [facility] Last Admin: 06/23/18 09:23 Dose: 50 mg Rosuvastatin Calcium (Crestor) 10 mg PO DAILY [facility] Last Admin: 06/23/18 09:24 Dose: 10 mg Simethicone (Mylicon Chewable) 80 mg PO PCHS PRN PRN Reason: Gas Pain Last Admin: 06/20/18 17:38 Dose: 80 mg Sodium Chloride (Flush - Normal Saline) 10 ml IVF PRN PRN PRN Reason: Saline Flush Sodium Chloride (Flush - Normal Saline) 10 ml IVF Q12HR [facility] Last Admin: 06/23/18 09:24 Dose: 10 ml Spironolactone (Aldactone) 25 mg PO QAM-[facility] Last Admin: 06/23/18 09:22 Dose: 25 mg Temazepam (Restoril) 30 mg PO HSPRN PRN PRN Reason: Insomnia Last Admin: 06/22/18 23:18 Dose: 30 mg Tramadol HCl (Ultram) 50 mg PO Q6H PRN PRN Reason: Mild Pain (1-3) Trazodone HCl (Desyrel) 50 mg PO [facility] Last Admin: 06/22/18 20:34 Dose: 50 mg
[2018-06-23] MEDS: HumaLOG 300 UNITS/3 ML VIAL SC PRN ×2 (11:20→16:40)
[2018-06-23] MEDS: traZODone HCl 50 MG TAB PO SCH (20:15)
[2018-06-23] MEDS: cefTRIAXone\\ROCEPHIN 2 GM in Sodium Chloride 0.9% 100 ML IVPB SCH (20:16)
[2018-06-23] MEDS: Temazepam 15 MG CAP PO PRN (20:27)
[2018-06-24 01:47] LABS: Anion Gap 12 mmol/L (10-20); BUN (Urea Nitrogen) 48 mg/dL (8.4-25.7); Calc. Creatinine Clearance 105 mL/min (70-130); Calcium 8.5 mg/dL (7.8-10.44); Carbon Dioxide 32 mmol/L (23-31); Chloride 95 mmol/L (98-107); Estimated GFR-MDRD 82; Glucose 61 mg/dL (83-110); Potassium 3.1 mmol/L (3.5-5.1); Sodium 136 mmol/L (136-145)
[2018-06-24 05:54] LABS: Anion Gap 14 mmol/L (10-20); BUN (Urea Nitrogen) 34 mg/dL (8.4-25.7); Calc. Creatinine Clearance 114 mL/min (70-130); Calcium 8.2 mg/dL (7.8-10.44); Carbon Dioxide 28 mmol/L (23-31); Chloride 91 mmol/L (98-107); Estimated GFR-MDRD 90; Glucose 214 mg/dL (83-110); Potassium 3.3 mmol/L (3.5-5.1); Sodium 130 mmol/L (136-145)
[2018-06-24 06:20] LABS: Band 1 % (5-11); Lymphocytes 3 % (21-51); MDiff Complete? YES; Mean Corpuscular HGB CONC 32.9 g/dL (32.0-36.0); Mean Corpuscular Hemoglobin 30.7 pg (27.0-31.0); Mean Corpuscular Volume 93.5 fL (78.0-98.0); Mean Platelet Volume 9.2 fL (7.4-10.4); Monocytes 3 % (0-10); Neutrophil 93 % (42-75); PLT Morphology Comment Appears Adequate; Platelet Count 185 thou/uL (130-400); RBC Distribution Width 13.7 % (11.5-14.5); RBC Morphology Normal; Red Blood Cell (RBC) Count 4.56 mill/uL (4.70-6.10); White Blood Cell (WBC) Count 11.2 thou/uL (4.8-10.8)
--- NOTE | 2018-06-24 09:22 | PRG ---
DATE OF SERVICE: 06/24/2018 SUBJECTIVE: The patient is about the same. He is continuing to wear BiPAP intermittently. OBJECTIVE: VITAL SIGNS: Temperature 97.4, pulse 92, respiratory rate 26, O2 saturation 98%, and blood pressure 94/52. HEENT: Unremarkable. NECK: No JVD. CHEST: Fairly clear. CARDIAC: S1 and S2. Regular. ABDOMEN: Soft. EXTREMITIES: No edema. LABORATORY DATA: White blood cell count 11.2, hematocrit 42.6, and platelet count 185. Sodium 130, potassium 3.3, chloride 91, CO2 of 28, BUN 34, creatinine 0.8, glucose 214. ASSESSMENT: 1. Chronic respiratory failure secondary to heart failure. 2. Group B Streptococcus septicemia. 3. Atrial flutter. 4. Myocardial infarction. 5. Congestive heart failure. 6. Right lower lobe pneumonia. PLAN: The patient is scheduled for DENI today. May have to be intubated for that procedure. He is continuing IV antibiotics. Job ID: [id number]
[2018-06-24] MEDS: Pregabalin 50 MG CAP PO SCH ×2 (10:45→20:39)
[2018-06-24] MEDS: Aspirin 81 mg Enteric Coated Tablet PO SCH (10:45)
[2018-06-24] MEDS: Apixaban 5 MG TAB PO SCH ×2 (10:46→20:37)
[2018-06-24] MEDS: Spironolactone 25 MG TAB PO SCH (10:46)
[2018-06-24] MEDS: Carvedilol 3.125 MG TAB PO SCH ×2 (10:46→20:39)
[2018-06-24] MEDS: Insulin Glargine 20 UNITS in Pre-Filled Syringe 1 EACH SC SCH ×2 (10:46→20:45)
[2018-06-24] MEDS: Furosemide 40 MG/4 ML VIAL SLOW IVP SCH (10:46)
[2018-06-24] MEDS: Rosuvastatin 10 MG TAB PO SCH (10:46)
[2018-06-24] MEDS: Multivitamin W/ Minerals 1 TAB PO SCH (10:47)
[2018-06-24] MEDS ORDERED: PROPOFOL 20 ML ONE (14:27)
[2018-06-24] MEDS ORDERED: KETAMINE 100 MG/ML (5ML VIAL) ONE (14:27)
[2018-06-24] MEDS: traZODone HCl 50 MG TAB PO SCH (20:37)
[2018-06-24] MEDS: cefTRIAXone\\ROCEPHIN 2 GM in Sodium Chloride 0.9% 100 ML IVPB SCH (20:37)
[2018-06-24] MEDS: Temazepam 15 MG CAP PO PRN (20:42)
[2018-06-24] MEDS ORDERED: PHENYLEPHRINE-NS 100 MCG/ML 10 ML SYRINGE ONE (21:52)
--- NOTE | 2018-06-24 21:59 | ECHO ---
72-year-old gentleman with cardiomyopathy and typical atrial flutter. DESCRIPTION OF PROCEDURE: The patient was taken to the PACU. The patient was sedated by anesthesiology. A transesophageal pro be was placed into the distal esophagus and stomach. Echocardiographic images were obtained. The tr ansesophageal probe was removed. FINDINGS: 1. Severe decrease in left ventricular systolic function. 2. Left ventricle is markedly dilated. 3. Left atrial enlargement. 4. Moderate mitral regurgitation. 5. Mild tricuspid regurgitation. 6. Spontaneous contrast was noted in the left atrium, left ventricle, and the right sided chambers. 7. No formed thrombus noted in the left atrial appendage. 8. Atherosclerotic debris in the descending aorta. IMPRESSION: No formed thrombus in the left atrial or left atrial appendage.
--- NOTE | 2018-06-25 03:04 | CON ---
DATE OF CONSULTATION: REASON FOR CONSULTATION: Bacteremia. HISTORY OF PRESENT ILLNESS: A 72-year-old patient who has a history of coronary artery disease with prior bypass graft surgery, who was seen at the emergency room on June 16 with dyspnea and chest pain. The patient was hypotensive and was felt to present with cardiogenic shock. Consultation with cardiology, Dr. Suarez , and Pulmonary Medicine were established. The initial impression was that he developed an acute myocardial infarction with a left bundle branch block. He was given heparin and dopamine as well as dobutamine, those were continued. In the Emergency, cardiac catheterization was advised. The patient had stenting of one of the saphenous grafts during the procedure of catheterization. He developed atrial flutter and he was evaluated by the electrophysiology. An echocardiogram showed EF of around 15% to 20% with moderate mitral regurgitation present. Positive for group B Streptococcus, resistant to clindamycin. He was given vancomycin on June 18 and then the Rocephin was started on June 20. The patient had repeat blood cultures on June 20 and those were also positive for group B strep. Both initial cultures as well as the ones on the had samples drawn from peripheral and central line blood. One on Friday, June 21, the central line in the groin was removed according to the nurse. Currently, Mr. Mayo is somewhat obtunded. He wakes up when I try to talk to him and he denies any headaches. He has no chest pain. He does have some moderate dyspnea. No abdominal pain, little bit of symptoms from the urinary catheter. No joint symptoms. PAST MEDICAL HISTORY: Includes coronary artery disease with prior bypass graft surgery, type 2 diabetes, hypertension, sleep apnea, dyslipidemia. PAST SURGICAL HISTORY: Revascularizations including bypass surgery and stents and had various stents before in the past, also cholecystectomy and cataracts were operated on. ALLERGIES: AMOXICILLIN. SOCIAL HISTORY: Former smoker. He is . CURRENT MEDICATIONS: Include; 1. Aldactone. 2. Restoril. 3. Ultram. 4. Deseril. 5. Amiodarone. 6. Eliquis. 7. Ecotrin. 8. Dulcolax. 9. Coreg. 10. Ceftriaxone. 11. Dobutamine. 12. Dopamine. 13. Doxycycline. 14. Enoxaparin. 15. Fentanyl. 16. Furosemide. 17. Heparin. 18. Insulin. 19. Morphine. 20. Levophed, which has been discontinued. 21. Looks like the dobutamine and dopamine have been discontinued as well. 22. Crestor. 23. Diprivan has been discontinued. 24. Vancomycin has been discontinued. PHYSICAL EXAMINATION: VITAL SIGNS: His T-max was 97, is now 98.2, blood pressure 111/59, pulse 98, respirations 29, O2 saturation 99%. SKIN: He have areas of bruising in the plantar aspect of feet and also areas of hyperkeratosis in the plantar aspect of both feet. There is an area of bruising in the right foot 1st MPJ skin site and some areas of excoriation in the anterior aspect of the right and left legs. He has peripheral IV access and a James catheter in place. He has what appears to be noninvasive ventilation mask in place right now. HEENT: His ocular movements are conjugate. No lymphadenopathy. Oral cavity is dry. NECK: Supple. No jugular vein distention. LUNGS: Basilar inspiratory crackles. No wheezing. HEART: Heart sounds are muffled S1, very muffled S2. The rhythm was regular. ABDOMEN: Soft, not distended or tender. No ascites. No bladder distention. MUSCULOSKELETAL: No joint inflammatory activity. NEUROLOGIC: Pulses are diminished in dorsalis pedis. Cap refill less than 4 seconds and plantar responses are indifferent. He is able to move extremities on command. He is awake, is able to answer questions and follows commands, but a lot of times he will not answer questions. LABORATORY DATA: His white cell count on arrival 12.4 and now is 11.2, hemoglobin of 14, platelets 185, 92% neutrophils, he had 31% bands on arrival, steadily went down in the subsequent days. Sodium 130, potassium 3.3, creatinine 0.84. Total bilirubin was 1.0, AST 65, ALT 15, alkaline phosphatase 63. BNP 1300. The most recent chest x-ray with mild improvement in infiltrates, improving edema. ASSESSMENT: 1. Coronary artery disease with recent non ST-segment elevation myocardial infarction with cardiogenic shock, requiring intervention with stenting. 2. Bacteremia, which was identified about 24 hours after admission and repeat samples 2 days later still showed the organism the same, group B Streptococcus. He did have a catheter that has been removed today after the 2nd set was turned positive. DISCUSSION: The differential diagnosis includes line colonization, specifically , the femoral line that had been inserted on admission, versus bacteremia that had been present from the get-go on the 1st day of admission since sampling of the blood was not taken on the 1st day. It is more likely that this represents an infection of the femoral catheter with persistence until the catheter was removed. Group B Streptococcus has been associated with endocarditis in the past, but certainly is not the most common organism or even common pathogen and cases of endocarditis. Ideally, one would like to rule out vegetation with a DENI, but in his circumstances, probably that is not going to be feasible, and I would recommend treating it with the Rocephin for at least 2 weeks assuming central line infection. Later on, depending on his clinical course, we may revisit the need to perform a DENI. Job ID: [id number] MTDD
[2018-06-25] MEDS: Acetaminophen/Codeine 30-300mg Tablet PO PRN (03:32)
[2018-06-25 04:09] LABS: Anion Gap 15 mmol/L (10-20); BUN (Urea Nitrogen) 28 mg/dL (8.4-25.7); Calc. Creatinine Clearance 100 mL/min (70-130); Calcium 8.2 mg/dL (7.8-10.44); Carbon Dioxide 31 mmol/L (23-31); Chloride 90 mmol/L (98-107); Estimated GFR-MDRD 76; Glucose 257 mg/dL (83-110); Potassium 3.5 mmol/L (3.5-5.1); Sodium 132 mmol/L (136-145)
[2018-06-25] MEDS: HumaLOG 300 UNITS/3 ML VIAL SC PRN ×4 (05:56→17:17)
--- NOTE | 2018-06-25 06:03 | PDOC.PN ---
- Subjective Encounter Start Date: 06/24/18 Encounter Start Time: 10:15 Subjective: pt on bipap wants to eat is hungry - Objective Resuscitation Status - Order Detail: 06/17/18 01:48 Resuscitation Status Routine Resuscitation Status: FULL: Full Resuscitation Discussed with: d/w patient at bedside 06/22/18 15:13 Resuscitation Status Routine Resuscitation Status: FULL: Full Resuscitation Vital Signs & Weight: Vital Signs (12 hours) Temp Pulse Resp BP Pulse Ox 06/25/18 03:51 98.6 F 80 20 116/63 95 06/25/18 00:00 98.1 F 78 18 94/54 L 96 06/24/18 23:26 78 06/24/18 20:00 97 06/24/18 19:53 97.6 F 82 24 H 93/59 L 97 Weight Admit Weight 210 lb 15.718 oz Weight 222 lb 2 oz Most Recent Monitor Data Heart Rate from ECG 64 NIBP 108/74 NIBP BP-Mean 85 Respiration from ECG 19 SpO2 92 I&O: 06/23/18 06/24/18 06/25/18 06:59 06:59 06:59 Intake Total 1700 960 Output Total 650 5986 5432 Balance -650 -675 -1140 Result Diagrams: 06/24/18 05:27 06/25/18 03:40 Additional Labs: Accuchecks 06/24/18 06/24/18 06/24/18 20:12 17:33 10:36 POC Glucose 228 H 232 H 221 H 06/24/18 06:20 POC Glucose 201 H Phys Exam - Physical Examination Neck: no nodes, no JVD, supple, full ROM mild rhonchi all over Cardiovascular: RRR, no significant murmur, no rub, gallop, irregular Gastrointestinal: soft, non-tender, no distention, positive bowel sounds Musculoskeletal: edema present Dx/Plan (1) Acute DC Code(s): I21.9 - ACUTE MYOCARDIAL INFARCTION, UNSPECIFIED Status: Acute Qualifiers: Myocardial infarction type: non-ST elevation myocardial infarction Qualified Code(s): I21.4 - Non-ST elevation (NSTEMI) myocardial infarction Comment: for med treatment (2) Metabolic acidosis Code(s): E87.2 - ACIDOSIS Status: Resolved (3) Bacteremia Code(s): R78.81 - BACTEREMIA Status: Acute (4) Atrial flutter Code(s): I48.92 - UNSPECIFIED ATRIAL FLUTTER Status: Acute Qualifiers: Atrial flutter type: unspecified Qualified Code(s): I48.92 - Unspecified atrial flutter (5) CAD (coronary artery disease) of artery bypass graft Code(s): I25.810 - ATHEROSCLEROSIS OF CABG W/O ANGINA PECTORIS Status: Chronic (6) DM2 (diabetes mellitus, type 2) Status: Chronic Qualifiers: Diabetes mellitus can solderer insulin use: without can solderer use Diabetes mellitus complication status: with unspecified complications Qualified Code(s) : E11.8 - Type 2 diabetes mellitus with unspecified complications Comment: labile (7) Cardiogenic shock Code(s): R57.0 - CARDIOGENIC SHOCK Status: Resolved (8) HTN (hypertension) Code(s): I10 - ESSENTIAL (PRIMARY) HYPERTENSION Status: Chronic Qualifiers: Hypertension type: essential hypertension Qualified Code(s): I10 - Essential (primary) hypertension - Plan will consult ID, continue current abx for now -: continue eliquis -: rate controlled -: low bp pt on bb and diuetic. Pt's ef 15-20% * . Review of Systems - Review of Systems Respiratory: negative: Cough, Dry, Shortness of Breath, Hemoptysis, SOB with Excertion, Pleuritic Pain, Sputum, Wheezing Cardiovascular: negative: chest pain, palpitations, orthopnea, paroxysmal nocturnal dyspnea, edema, light headedness, other Gastrointestinal: negative: Nausea, Vomiting, Abdominal Pain, Diarrhea, Constipation, Melena, Hematochezia, Other Genitourinary: negative: Dysuria, Frequency, Incontinence, Hematuria, Retention , Other - Medications/Allergies Allergies/Adverse Reactions: Allergies Allergy/AdvReac Type Severity Reaction Status Date / Time amoxicillin [Amoxicillin] Allergy Verified 05/30/16 08:08 Medications: Current Medications Acetaminophen/Codeine Phosphate (Tylenol #3) 1 tab PO Q4H PRN PRN Reason: Mild Pain (1-3) 2ND LINE Last Admin: 06/20/18 20:16 Dose: 1 tab Acetaminophen/Codeine Phosphate (Tylenol #3) 2 tab PO Q4H PRN PRN Reason: Moderate Pain (4-6) 2ND LINE Last Admin: 06/25/18 03:32 Dose: 2 tab Apixaban (Eliquis) 5 mg PO BID [facility] Last Admin: 06/24/18 20:37 Dose: 5 mg Aspirin (Ecotrin) 81 mg PO DAILY [facility] Last Admin: 06/24/18 10:45 Dose: 81 mg Carvedilol (Coreg) 3.125 mg PO BID-[facility] Last Admin: 06/24/18 20:39 Dose: 3.125 mg Dextrose/Water (Dextrose 50%) 25 gm IVP PRN PRN PRN Reason: HYPOGLYCEMIA PROTOCOL Fentanyl (Duragesic) 50 mcg TD Q3D [facility] Last Admin: 06/22/18 17:14 Dose: 50 mcg Furosemide (Lasix) 40 mg SLOW IVP DAILY [facility] Last Admin: 06/24/18 10:46 Dose: 40 mg Glucagon (Glucagon) 1 mg IM PRN PRN PRN Reason: HYPOGLYCEMIA PROTOCOL Dextrose/Water (D5w) 1,000 mls @ 0 mls/hr IV INF PRN PRN Reason: HYPOGLYCEMIA PROTOCOL Ceftriaxone Sodium 2 gm/ (Sodium Chloride) 100 mls @ 200 mls/hr IVPB 2100 [facility] Last Admin: 06/24/18 20:37 Dose: 100 mls Insulin Glargine 20 units/ (Miscellaneous Medication) 0.2 mls @ 0 mls/hr SC HS [facility] Last Admin: 06/24/18 20:45 Dose: 0.2 mls Insulin Glargine 20 units/ (Miscellaneous Medication) 0.2 mls @ 0 mls/hr SC QAM [facility] Last Admin: 06/24/18 10:46 Dose: Not Given Insulin Human Lispro (Humalog) 0 units SC .AGGRESSIVE SLIDING PRN; Protocol PRN Reason: AGGRESSIVE SLIDING SCALE Last Admin: 06/25/18 05:56 Dose: 6 unit Iron/Minerals/Multivitamins (Theragran M) 1 tab PO DAILY [facility] Last Admin: 06/24/18 10:47 Dose: Not Given Isosorbide Mononitrate (Imdur) 60 mg PO DAILY [facility] Last Admin: 06/24/18 10:46 Dose: 60 mg Nitroglycerin (Nitrostat) 0.4 mg SL Q5MIN PRN PRN Reason: Chest Pain Last Admin: 06/17/18 04:19 Dose: 0.4 mg Ondansetron HCl (Zofran) 4 mg IVP Q6H PRN PRN Reason: Nausea/Vomiting Last Admin: 06/20/18 09:17 Dose: 4 mg Pregabalin (Lyrica) 50 mg PO BID [facility] Last Admin: 06/24/18 20:39 Dose: 50 mg Rosuvastatin Calcium (Crestor) 10 mg PO DAILY [facility] Last Admin: 06/24/18 10:46 Dose: 10 mg Simethicone (Mylicon Chewable) 80 mg PO PCHS PRN PRN Reason: Gas Pain Last Admin: 06/20/18 17:38 Dose: 80 mg Sodium Chloride (Flush - Normal Saline) 10 ml IVF PRN PRN PRN Reason: Saline Flush Sodium Chloride (Flush - Normal Saline) 10 ml IVF Q12HR [facility] Last Admin: 06/24/18 20:39 Dose: 10 ml Spironolactone (Aldactone) 12.5 mg PO QAM-[facility] Temazepam (Restoril) 30 mg PO HSPRN PRN PRN Reason: Insomnia Last Admin: 06/24/18 20:42 Dose: 30 mg Tramadol HCl (Ultram) 50 mg PO Q6H PRN PRN Reason: Mild Pain (1-3) Trazodone HCl (Desyrel) 50 mg PO HS [facility] Last Admin: 06/24/18 20:37 Dose: 50 mg
[2018-06-25] MEDS: Apixaban 5 MG TAB PO SCH ×2 (08:47→23:01)
[2018-06-25] MEDS: Spironolactone 25 MG TAB PO SCH (08:47)
[2018-06-25] MEDS: Aspirin 81 mg Enteric Coated Tablet PO SCH (08:47)
[2018-06-25] MEDS: Carvedilol 3.125 MG TAB PO SCH ×2 (08:47→17:59)
[2018-06-25] MEDS: Furosemide 40 MG/4 ML VIAL SLOW IVP SCH (08:47)
[2018-06-25] MEDS: Insulin Glargine 20 UNITS in Pre-Filled Syringe 1 EACH SC SCH ×2 (08:48→20:27)
[2018-06-25] MEDS: Rosuvastatin 10 MG TAB PO SCH (08:48)
[2018-06-25] MEDS: Multivitamin W/ Minerals 1 TAB PO SCH (08:48)
[2018-06-25] MEDS: Pregabalin 50 MG CAP PO SCH ×2 (08:48→20:28)
--- NOTE | 2018-06-25 09:51 | PRG ---
DATE OF SERVICE: 06/25/2018 SUBJECTIVE: The patient seems to be doing okay. He is still using the BiPAP quite frequently. He had a DENI yesterday, which was negative for thrombus, which showed a severe decrease in LV function. OBJECTIVE: VITAL SIGNS: On exam, his temperature is 97.2, pulse 82, respirations 29, O2 saturation 98%, and blood pressure 105/67. HEENT: Unremarkable. NECK: No adenopathy or JVD. LUNGS: Fairly clear. CARDIAC: S1 and S2, regular. ABDOMEN: Soft. EXTREMITIES: No edema. LABORATORY DATA: Looks like his labs from this morning are pending. ASSESSMENT: 1. Hypoxic respiratory failure secondary to congestive heart failure. 2. Bacteremia, which ID thinks it was probably secondary to a femoral line that was inserted in the ER at the time of admission. This line has been pulled out. 3. Atrial flutter. 4. Myocardial infarction. 5. Right lower lobe pneumonia. PLAN: 1. Can probably stop the antibiotics on June 27. We will continue BiPAP intermittently, but I have encouraged him to use it less and less. 2. I am going to hold off going up on Lantus insulin since he missed a dose yesterday related to his DENI. Job ID: [id number]
--- NOTE | 2018-06-25 13:43 | PDOC.CTH ---
Cardiology Progress Note - Subjective EP PROGRESS NOTE: 06/25/2018 Seen as follow up for atrial flutter. Sitting up in chair today off CPAP for 2- 3 hours. +anxiety, shortness of breath, weakness, fatigue -heart racing, palpitations, chest pain, dizziness, stroke like symptoms, bleeding dyscrasias - Objective Vital Signs Temp Pulse Resp BP BP Pulse Ox 06/25/18 12:00 97 06/25/18 11:22 97.4 F L 79 23 H 102/67 97 06/25/18 08:00 95 06/25/18 07:31 97.2 F L 82 29 H 105/67 98 06/25/18 03:51 98.6 F 80 20 116/63 95 Admit Weight 210 lb 15.718 oz Weight 222 lb 2 oz 06/24/18 06/25/18 06/26/18 06:59 06:59 06:59 Intake Total 1700 960 Output Total 2375 2100 Balance -675 -1140 - Physical Examination General/Neuro: alert & oriented x3, NAD Neck: carotid US brisk, no JVD present Lungs: CTA, unlabored respirations Heart: PMI normal, other: (irreg irreg) Abdomen: NT/ND, soft Extremities: + edema B - Telemetry Telemetry Rhythm: atrial flutter, rate controlled. - Labs Result Diagrams: 06/24/18 05:27 06/25/18 03:40 Troponin/CKMB Troponin I 40.010 ng/mL (< 0.028) H* 06/17/18 06:05 - Assessment/Plan 1. Typical atrial flutter -new onset -controlled ventricular rate -DENI Friday, negative for intracardiac thrombus 2. Systolic heart failure -EF 15-20% 3. Left bundle branch block 4. NSTEMI -revascularization performed with drug-eluting stents 5. Obesity 6. Diabetes 7. Hypoxic respiratory failure -attributed to congestive heart failure 8. Bacteremia -attributed to femoral line from ER, has been removed -ID following 9. Right lower lobe pneumonia 10. CHADS2-VASC: 5 ( HTN, CAD, diabetes, age, heart failure) - On eliquis 5 mg BID - Will hold in AM pending EPS and CTI ablation Off CPAP for progressive amounts of time but feels quite anxious and short of breath without its support. Up in chair today and does appear more stable than yesterday. Remains in atrial flutter with controlled rates. Scheduled for EP study and CTI ablation tomorrow AM with Dr Sands (to follow his 0800 ablation). Risks of hematoma, bleeding, and arrhythmias were discussed. Success rates of CTI ablation are as high as 98%. Alternatives include medications for management but with the high success rate with ablation , this continues to be the recommended treatment for typical atrial flutter. NPO after midnight. Hold AM eliquis.Will evaluate in AM to ensure he will be able to tolerate the procedure with his breathing as it is. Anesthesia is scheduled.
[2018-06-25] MEDS: fentaNYL 50 mcg/hour Patch TD SCH (18:22)
[2018-06-25] MEDS: traZODone HCl 50 MG TAB PO SCH (20:28)
[2018-06-25] MEDS: cefTRIAXone\\ROCEPHIN 2 GM in Sodium Chloride 0.9% 100 ML IVPB SCH (20:29)
[2018-06-25] MEDS: Temazepam 15 MG CAP PO PRN (23:19)
[2018-06-25] MEDS: Simethicone Chewable 80 MG TAB PO PRN (23:19)
[2018-06-26 04:50] LABS: #Basophils 0.1 thou/uL (0.0-0.2); #Eosinphils 0.1 thou/uL (0.0-0.7); #Lymphocytes 1.4 thou/uL (1.20-3.40); #Monocytes 0.8 thou/uL (0.11-0.59); #Neutrophils 10.4 thou/uL (1.40-6.50); %Basophils 0.5 % (0.0-1.0); %Eosinophils 0.7 % (0.0-10.0); %Monocytes 5.9 % (0.0-10.0); %Neutrophils 81.8 % (42.0-75.0); Hemoglobin 14.6 g/dL (14.0-18.0); Mean Corpuscular HGB CONC 33.3 g/dL (32.0-36.0); Mean Corpuscular Hemoglobin 31.5 pg (27.0-31.0); Mean Corpuscular Volume 94.5 fL (78.0-98.0); Platelet Count 223 thou/uL (130-400); RBC Distribution Width 14.3 % (11.5-14.5); Red Blood Cell (RBC) Count 4.64 mill/uL (4.70-6.10); White Blood Cell (WBC) Count 12.7 thou/uL (4.8-10.8)
[2018-06-26 05:12] LABS: Anion Gap 16 mmol/L (10-20); BUN (Urea Nitrogen) 21 mg/dL (8.4-25.7); Calc. Creatinine Clearance 111 mL/min (70-130); Calcium 8.5 mg/dL (7.8-10.44); Carbon Dioxide 31 mmol/L (23-31); Chloride 90 mmol/L (98-107); Estimated GFR-MDRD 87; Glucose 192 mg/dL (83-110); Potassium 3.6 mmol/L (3.5-5.1); Sodium 133 mmol/L (136-145)
[2018-06-26] MEDS: Carvedilol 3.125 MG TAB PO SCH ×2 (06:04→17:20)
--- NOTE | 2018-06-26 06:18 | PDOC.PN ---
- Subjective Encounter Start Date: 06/25/18 Encounter Start Time: 10:30 Subjective: pt up in chair no complains - Objective Resuscitation Status - Order Detail: 06/17/18 01:48 Resuscitation Status Routine Resuscitation Status: FULL: Full Resuscitation Discussed with: d/w patient at bedside 06/22/18 15:13 Resuscitation Status Routine Resuscitation Status: FULL: Full Resuscitation Vital Signs & Weight: Vital Signs (12 hours) Temp Pulse Resp BP Pulse Ox 06/26/18 03:43 98.8 F 83 20 95/54 L 97 06/26/18 00:21 80 06/25/18 23:59 98.8 F 79 20 97/51 L 97 06/25/18 20:05 96 06/25/18 19:56 97.2 F L 81 22 H 110/70 96 Weight Admit Weight 210 lb 15.718 oz Weight 222 lb 2 oz Most Recent Monitor Data Heart Rate from ECG 64 NIBP 108/74 NIBP BP-Mean 85 Respiration from ECG 19 SpO2 92 I&O: 06/24/18 06/25/18 06/26/18 06:59 06:59 06:59 Intake Total 1700 960 Output Total 2375 2100 Balance -675 -1140 Result Diagrams: 06/26/18 04:25 06/26/18 04:25 Additional Labs: Accuchecks 06/25/18 06/25/18 06/25/18 20:16 16:49 10:37 POC Glucose 229 H 240 H 387 H Phys Exam - Physical Examination Neck: no nodes, no JVD, supple, full ROM mild crackles to bases Cardiovascular: RRR, no significant murmur, no rub, gallop, irregular Gastrointestinal: soft, non-tender, no distention, positive bowel sounds Dx/Plan (1) Acute NE Code(s): I21.9 - ACUTE MYOCARDIAL INFARCTION, UNSPECIFIED Status: Acute Qualifiers: Myocardial infarction type: non-ST elevation myocardial infarction Qualified Code(s): I21.4 - Non-ST elevation (NSTEMI) myocardial infarction Comment: for med treatment (2) Metabolic acidosis Code(s): E87.2 - ACIDOSIS Status: Resolved (3) Bacteremia Code(s): R78.81 - BACTEREMIA Status: Acute (4) Atrial flutter Code(s): I48.92 - UNSPECIFIED ATRIAL FLUTTER Status: Acute Qualifiers: Atrial flutter type: unspecified Qualified Code(s): I48.92 - Unspecified atrial flutter (5) CAD (coronary artery disease) of artery bypass graft Code(s): I25.810 - ATHEROSCLEROSIS OF CABG W/O ANGINA PECTORIS Status: Chronic (6) DM2 (diabetes mellitus, type 2) Status: Chronic Qualifiers: Diabetes mellitus intermediate card tender insulin use: without intermediate card tender use Diabetes mellitus complication status: with unspecified complications Qualified Code(s) : E11.8 - Type 2 diabetes mellitus with unspecified complications Comment: labile (7) Cardiogenic shock Code(s): R57.0 - CARDIOGENIC SHOCK Status: Resolved (8) HTN (hypertension) Code(s): I10 - ESSENTIAL (PRIMARY) HYPERTENSION Status: Chronic Qualifiers: Hypertension type: essential hypertension Qualified Code(s): I10 - Essential (primary) hypertension - Plan will continue abx -: pt going for ablation in am -: DENI done no clots -: pt on eliquis will hold in am * . Review of Systems - Review of Systems Respiratory: negative: Cough, Dry, Shortness of Breath, Hemoptysis, SOB with Excertion, Pleuritic Pain, Sputum, Wheezing Cardiovascular: negative: chest pain, palpitations, orthopnea, paroxysmal nocturnal dyspnea, edema, light headedness, other Gastrointestinal: negative: Nausea, Vomiting, Abdominal Pain, Diarrhea, Constipation, Melena, Hematochezia, Other - Medications/Allergies Allergies/Adverse Reactions: Allergies Allergy/AdvReac Type Severity Reaction Status Date / Time amoxicillin [Amoxicillin] Allergy Verified 05/30/16 08:08 Medications: Current Medications Acetaminophen/Codeine Phosphate (Tylenol #3) 1 tab PO Q4H PRN PRN Reason: Mild Pain (1-3) 2ND LINE Last Admin: 06/20/18 20:16 Dose: 1 tab Acetaminophen/Codeine Phosphate (Tylenol #3) 2 tab PO Q4H PRN PRN Reason: Moderate Pain (4-6) 2ND LINE Last Admin: 06/25/18 03:32 Dose: 2 tab Apixaban (Eliquis) 5 mg PO BID [facility] Last Admin: 06/25/18 23:01 Dose: Not Given Aspirin (Ecotrin) 81 mg PO DAILY [facility] Last Admin: 06/25/18 08:47 Dose: 81 mg Carvedilol (Coreg) 3.125 mg PO BID-[facility] Last Admin: 06/26/18 06:04 Dose: 3.125 mg Dextrose/Water (Dextrose 50%) 25 gm IVP PRN PRN PRN Reason: HYPOGLYCEMIA PROTOCOL Fentanyl (Duragesic) 50 mcg TD Q3D [facility] Last Admin: 06/25/18 18:22 Dose: 50 mcg Furosemide (Lasix) 40 mg SLOW IVP DAILY [facility] Last Admin: 06/25/18 08:47 Dose: 40 mg Glucagon (Glucagon) 1 mg IM PRN PRN PRN Reason: HYPOGLYCEMIA PROTOCOL Dextrose/Water (D5w) 1,000 mls @ 0 mls/hr IV INF PRN PRN Reason: HYPOGLYCEMIA PROTOCOL Ceftriaxone Sodium 2 gm/ (Sodium Chloride) 100 mls @ 200 mls/hr IVPB 2100 [facility] Last Admin: 06/25/18 20:29 Dose: 100 mls Insulin Glargine 20 units/ (Miscellaneous Medication) 0.2 mls @ 0 mls/hr SC HS [facility] Last Admin: 06/25/18 20:27 Dose: 0.2 mls Insulin Glargine 20 units/ (Miscellaneous Medication) 0.2 mls @ 0 mls/hr SC QAM [facility] Last Admin: 06/25/18 08:48 Dose: 0.2 mls Insulin Human Lispro (Humalog) 0 units SC .AGGRESSIVE SLIDING PRN; Protocol PRN Reason: AGGRESSIVE SLIDING SCALE Last Admin: 06/25/18 17:17 Dose: 6 unit Iron/Minerals/Multivitamins (Theragran M) 1 tab PO DAILY [facility] Last Admin: 06/25/18 08:48 Dose: 1 tab Isosorbide Mononitrate (Imdur) 60 mg PO DAILY [facility] Last Admin: 06/25/18 08:48 Dose: 60 mg Nitroglycerin (Nitrostat) 0.4 mg SL Q5MIN PRN PRN Reason: Chest Pain Last Admin: 06/17/18 04:19 Dose: 0.4 mg Ondansetron HCl (Zofran) 4 mg IVP Q6H PRN PRN Reason: Nausea/Vomiting Last Admin: 06/20/18 09:17 Dose: 4 mg Pregabalin (Lyrica) 50 mg PO BID [facility] Last Admin: 06/25/18 20:28 Dose: 50 mg Rosuvastatin Calcium (Crestor) 10 mg PO DAILY [facility] Last Admin: 06/25/18 08:48 Dose: 10 mg Simethicone (Mylicon Chewable) 80 mg PO PCHS PRN PRN Reason: Gas Pain Last Admin: 06/25/18 23:19 Dose: 80 mg Sodium Chloride (Flush - Normal Saline) 10 ml IVF PRN PRN PRN Reason: Saline Flush Sodium Chloride (Flush - Normal Saline) 10 ml IVF Q12HR [facility] Last Admin: 06/25/18 20:30 Dose: 10 ml Spironolactone (Aldactone) 12.5 mg PO QAM-WM [facility] Last Admin: 06/25/18 08:47 Dose: 12.5 mg Temazepam (Restoril) 30 mg PO HSPRN PRN PRN Reason: Insomnia Last Admin: 06/25/18 23:19 Dose: 30 mg Tramadol HCl (Ultram) 50 mg PO Q6H PRN PRN Reason: Mild Pain (1-3) Trazodone HCl (Desyrel) 50 mg PO HS [facility] Last Admin: 06/25/18 20:28 Dose: 50 mg
--- NOTE | 2018-06-26 08:13 | RAD ---
PORTABLE CHEST ONE VIEW: 06/26/2018 5:06 a.m. HISTORY: Pulmonary edema. COMPARISON: 06/23/2018 FINDINGS: Changes of median sternotomy are again seen. The heart size is enlarged. Bilateral pleural effusion s are seen with bibasilar infiltrates. No pneumothoraces are identified. POS: OFF
[2018-06-26] MEDS ORDERED: Lidocaine 1% (PF) 30 ML VIAL ONE (09:26)
[2018-06-26] MEDS ORDERED: Heparin 10,000 UNITS/1 ML VIAL ONE (09:27)
[2018-06-26] MEDS ORDERED: KETAMINE 100 MG/ML (5ML VIAL) ONE (09:32)
[2018-06-26] MEDS ORDERED: Fentanyl 100 MCG/2 ML VIAL ONE (09:32)
[2018-06-26] MEDS ORDERED: Phenylephrine HCL 10 MG/ML VIAL ONE (09:33)
--- NOTE | 2018-06-26 10:08 | PRG ---
DATE OF SERVICE: 06/26/2018 SUBJECTIVE: The patient is doing reasonably well. We are expecting an EP study later today. OBJECTIVE: VITAL SIGNS: On exam, his temperature is 96.5, pulse 80, respiratory rate is 24, O2 sat 96%, and blood pressure 99/66. HEENT: Unremarkable. NECK: No JVD. CHEST: Fairly clear anteriorly. CARDIAC: S1 and S2. Regular. ABDOMEN: Soft. EXTREMITIES: No edema. LABORATORY DATA: Sodium 133, potassium 3.6, BUN 21, creatinine 0.8, and glucose 192. White blood cell count 12.7, hematocrit 43.8, and platelet count 223. ASSESSMENT: 1. Status post right lower lobe pneumonia - x-ray is slowly clearing. 2. Status post respiratory failure, requiring mechanical ventilation. 3. Myocardial infarction. 4. Bacteremia that was thought to be from the femoral line. PLAN: 1. Continuing antibiotics - will probably continue that for a total of 10 days, stop this on 04/30. 2. EP study expected today. 3. Increase activity as tolerated. Job ID: [id number]
[2018-06-26] MEDS ORDERED: Promethazine HCl 25 MG/ML VIAL SLOW IVP PRN (11:15)
[2018-06-26] MEDS ORDERED: Ondansetron HCl/PF 4 MG/2 ML Vial IVP PRN (11:15)
[2018-06-26] MEDS ORDERED: Promethazine HCl 25 MG/ML VIAL IM PRN (11:15)
[2018-06-26] MEDS ORDERED: SUGAMMADEX SODIUM 200 MG/2 ML VIAL ONE (11:17)
[2018-06-26] MEDS ORDERED: Morphine 2 MG/ML SYRINGE ONE (11:39)
--- NOTE | 2018-06-26 12:38 | EKG ---
Test Reason : POST ABLATION Blood Pressure : / mmHG Vent. Rate : 107 BPM Atrial Rate : 107 BPM P-R Int : 000 ms QRS Dur : 170 ms QT Int : 360 ms P-R-T Axes : 058 097 008 degrees QTc Int : 480 ms Sinus tachycardia with 1st degree A-V block (Borderline 1st Degree AV block). Rightward axis Left bundle branch block Abnormal ECG When compared with ECG of 17-JUN-2018 06:51, (Unconfirmed) Sinus rhythm has replaced Wide QRS tachycardia Confirmed by ASHLEY HENDRICKS ([id number]) on 06/26/2018 12:38:15 PM Referred By: LEONIDAS Confirmed By:ASHLEY HENDRICKS
[2018-06-26] MEDS: Rosuvastatin 10 MG TAB PO SCH (12:57)
[2018-06-26] MEDS: Spironolactone 25 MG TAB PO SCH (12:57)
[2018-06-26] MEDS: Multivitamin W/ Minerals 1 TAB PO SCH (12:57)
[2018-06-26] MEDS: Aspirin 81 mg Enteric Coated Tablet PO SCH (12:58)
[2018-06-26] MEDS: Pregabalin 50 MG CAP PO SCH ×2 (12:58→20:34)
[2018-06-26] MEDS: Furosemide 40 MG/4 ML VIAL SLOW IVP SCH (12:59)
[2018-06-26] MEDS: Insulin Glargine 20 UNITS in Pre-Filled Syringe 1 EACH SC SCH ×2 (13:05→20:38)
--- NOTE | 2018-06-26 15:53 | OP ---
DATE OF PROCEDURE: 06/16/2018 PROCEDURE PERFORMED: Radiofrequency ablation for supraventricular tachycardia. PREOPERATIVE DIAGNOSIS: Atrial flutter. PROCEDURE DETAILS: The patient came to the EP lab in postobstructive state. Informed consent was obtained. A time-out was called. The patient was sedated by member of the anesthesia staff. Once the patient was adequately sedated, the right and left femoral regions were prepped and draped in the usual sterile fashion. Using a modified Seldinger technique and with ultrasound-guidance access, access was obtained x3 in the right femoral vein, also atrial access was obtained as Anesthesia requested placement of an arch line for hemodynamic monitoring during the procedure. Following this, an 8-Sammarinese sheath and two 6-Sammarinese sheaths were advanced into the right femoral vein and a 4-Sammarinese sheath was placed into the right femoral artery. A Decapolar catheter was advanced in the right femoral vein and placed into the coronary sinus for left atrial pacing and recording. Another Decapolar catheter was advanced along the colleen terminalis area. This yielded a clear cut intracardiac activation sequence consistent with typical atrial flutter, cycle length of the tachycardia was 200 milliseconds. An 8 mm STSF Carto catheter was advanced into the right atrium. This catheter was zeroed in the right atrium and then advanced towards the His bundle area. interval was 41 milliseconds. The baseline intervals were cycle length of 734, QRS 140, QT 397. Based on the activation sequence and using electroanatomical guidance, radiofrequency ablation was initiated in the 6 o'clock position along the tricuspid annulus in the CHRISTIE view. The ablation initiated at the tricuspid annulus with a drag lesion ended in the inferior vena cava resulting in termination of the atrial flutter and bidirectional block. The transisthmus time was approximately 160 milliseconds when measured. Isoproterenol was given and waiting time was commenced. After this, the transisthmus line continued to be blocked with a similar amount of milliseconds. Based on this, catheters were removed and hemostasis was obtained through a placement of Vascade closure device for the venous and arterial sheaths. The patient tolerated the procedure well and was therefore removed from the table and discharged from the EP Lab in stable condition. Postablation numbers include OR interval of 200 milliseconds, the rest of the numbers was all identical. POSTOPERATIVE DIAGNOSIS: Typical atrial flutter. PROCEDURES PERFORMED: Radiofrequency ablation for supraventricular tachycardia. CS and LA recording and pacing, 3D electroanatomical mapping, drug infusion, comprehensive EP study included. COMPLICATIONS: None acute. ESTIMATED BLOOD LOSS: Less than 30 mL. CONCLUSIONS: 1. Typical atrial flutter. 2. Successful radiofrequency ablation for isthmus for typical atrial flutter. RECOMMENDATIONS: The patient should be at bedrest for about an hour and will follow up with Electrophysiology in about 6 to 8 weeks. He will continue anticoagulant therapy. Job ID: [id number]
[2018-06-26] MEDS: HumaLOG 300 UNITS/3 ML VIAL SC PRN (17:33)
--- NOTE | 2018-06-26 19:33 | PDOC.PN ---
- Subjective Encounter Start Date: 06/26/18 Encounter Start Time: 16:00 Subjective: pt up in bed no complains - Objective Resuscitation Status - Order Detail: 06/17/18 01:48 Resuscitation Status Routine Resuscitation Status: FULL: Full Resuscitation Discussed with: d/w patient at bedside 06/22/18 15:13 Resuscitation Status Routine Resuscitation Status: FULL: Full Resuscitation Vital Signs & Weight: Vital Signs (12 hours) Temp Pulse Resp BP BP Pulse Ox 06/26/18 19:27 98.5 F 106 H 15 99/77 97 06/26/18 15:19 98.0 F 108 H 24 H 103/66 94 L 06/26/18 11:54 97.4 F L 104 H 29 H 106/73 97 06/26/18 11:25 110 H 06/26/18 09:53 89 06/26/18 08:49 93 L 06/26/18 08:00 96 06/26/18 07:45 96.5 F L 80 24 H 99/66 96 Weight Admit Weight 210 lb 15.718 oz Weight 222 lb 2 oz Most Recent Monitor Data Heart Rate from ECG 64 NIBP 108/74 NIBP BP-Mean 85 Respiration from ECG 19 SpO2 92 I&O: 06/25/18 06/26/18 06/27/18 06:59 06:59 06:59 Intake Total 960 580 844 Output Total 2100 1000 1450 Balance -1140 -420 -606 Result Diagrams: 06/26/18 04:25 06/26/18 04:25 Additional Labs: Accuchecks 06/26/18 06/26/18 06/25/18 16:40 11:58 20:16 POC Glucose 191 H 179 H 229 H Phys Exam - Physical Examination Neck: no nodes, no JVD, supple, full ROM Respiratory: no wheezing, no rales, no rhonchi, wheezing present, clear to auscultation bilateral Cardiovascular: RRR, no significant murmur, no rub, gallop, irregular Gastrointestinal: soft, non-tender, no distention, positive bowel sounds Dx/Plan (1) Acute AR Code(s): I21.9 - ACUTE MYOCARDIAL INFARCTION, UNSPECIFIED Status: Acute Qualifiers: Myocardial infarction type: non-ST elevation myocardial infarction Qualified Code(s): I21.4 - Non-ST elevation (NSTEMI) myocardial infarction Comment: for med treatment (2) Metabolic acidosis Code(s): E87.2 - ACIDOSIS Status: Resolved (3) Bacteremia Code(s): R78.81 - BACTEREMIA Status: Acute (4) Atrial flutter Code(s): I48.92 - UNSPECIFIED ATRIAL FLUTTER Status: Acute Qualifiers: Atrial flutter type: unspecified Qualified Code(s): I48.92 - Unspecified atrial flutter (5) CAD (coronary artery disease) of artery bypass graft Code(s): I25.810 - ATHEROSCLEROSIS OF CABG W/O ANGINA PECTORIS Status: Chronic (6) DM2 (diabetes mellitus, type 2) Status: Chronic Qualifiers: Diabetes mellitus chcf insulin use: without chcf use Diabetes mellitus complication status: with unspecified complications Qualified Code(s) : E11.8 - Type 2 diabetes mellitus with unspecified complications Comment: labile (7) Cardiogenic shock Code(s): R57.0 - CARDIOGENIC SHOCK Status: Resolved (8) HTN (hypertension) Code(s): I10 - ESSENTIAL (PRIMARY) HYPERTENSION Status: Chronic Qualifiers: Hypertension type: essential hypertension Qualified Code(s): I10 - Essential (primary) hypertension - Plan s/p ablation now in sinus -: DENI no vegatation -: will continue abx for now -: continue eliquis * . Review of Systems - Review of Systems Respiratory: negative: Cough, Dry, Shortness of Breath, Hemoptysis, SOB with Excertion, Pleuritic Pain, Sputum, Wheezing Cardiovascular: negative: chest pain, palpitations, orthopnea, paroxysmal nocturnal dyspnea, edema, light headedness, other Gastrointestinal: negative: Nausea, Vomiting, Abdominal Pain, Diarrhea, Constipation, Melena, Hematochezia, Other - Medications/Allergies Allergies/Adverse Reactions: Allergies Allergy/AdvReac Type Severity Reaction Status Date / Time amoxicillin [Amoxicillin] Allergy Verified 05/30/16 08:08 Medications: Current Medications Acetaminophen/Codeine Phosphate (Tylenol #3) 1 tab PO Q4H PRN PRN Reason: Mild Pain (1-3) 2ND LINE Last Admin: 06/20/18 20:16 Dose: 1 tab Acetaminophen/Codeine Phosphate (Tylenol #3) 2 tab PO Q4H PRN PRN Reason: Moderate Pain (4-6) 2ND LINE Last Admin: 06/25/18 03:32 Dose: 2 tab Apixaban (Eliquis) 5 mg PO BID [facility] Last Admin: 06/25/18 23:01 Dose: Not Given Aspirin (Ecotrin) 81 mg PO DAILY [facility] Last Admin: 06/26/18 12:58 Dose: 81 mg Carvedilol (Coreg) 3.125 mg PO BID-[facility] Last Admin: 06/26/18 17:20 Dose: 3.125 mg Dextrose/Water (Dextrose 50%) 25 gm IVP PRN PRN PRN Reason: HYPOGLYCEMIA PROTOCOL Fentanyl (Duragesic) 50 mcg TD Q3D [facility] Last Admin: 06/25/18 18:22 Dose: 50 mcg Furosemide (Lasix) 40 mg SLOW IVP DAILY [facility] Last Admin: 06/26/18 12:59 Dose: 40 mg Glucagon (Glucagon) 1 mg IM PRN PRN PRN Reason: HYPOGLYCEMIA PROTOCOL Dextrose/Water (D5w) 1,000 mls @ 0 mls/hr IV INF PRN PRN Reason: HYPOGLYCEMIA PROTOCOL Ceftriaxone Sodium 2 gm/ (Sodium Chloride) 100 mls @ 200 mls/hr IVPB 2100 [facility] Last Admin: 06/25/18 20:29 Dose: 100 mls Insulin Glargine 20 units/ (Miscellaneous Medication) 0.2 mls @ 0 mls/hr SC HS [facility] Last Admin: 06/25/18 20:27 Dose: 0.2 mls Insulin Glargine 20 units/ (Miscellaneous Medication) 0.2 mls @ 0 mls/hr SC QAM [facility] Last Admin: 06/26/18 13:05 Dose: 0.2 mls Insulin Human Lispro (Humalog) 0 units SC .AGGRESSIVE SLIDING PRN; Protocol PRN Reason: AGGRESSIVE SLIDING SCALE Last Admin: 06/26/18 17:33 Dose: 3 unit Iron/Minerals/Multivitamins (Theragran M) 1 tab PO DAILY [facility] Last Admin: 06/26/18 12:57 Dose: 1 tab Isosorbide Mononitrate (Imdur) 60 mg PO DAILY [facility] Last Admin: 06/26/18 12:57 Dose: 60 mg Nitroglycerin (Nitrostat) 0.4 mg SL Q5MIN PRN PRN Reason: Chest Pain Last Admin: 06/17/18 04:19 Dose: 0.4 mg Ondansetron HCl (Zofran) 4 mg IVP Q6H PRN PRN Reason: Nausea/Vomiting Last Admin: 06/20/18 09:17 Dose: 4 mg Pregabalin (Lyrica) 50 mg PO BID [facility] Last Admin: 06/26/18 12:58 Dose: 50 mg Rosuvastatin Calcium (Crestor) 10 mg PO DAILY [facility] Last Admin: 06/26/18 12:57 Dose: 10 mg Simethicone (Mylicon Chewable) 80 mg PO PCHS PRN PRN Reason: Gas Pain Last Admin: 06/25/18 23:19 Dose: 80 mg Sodium Chloride (Flush - Normal Saline) 10 ml IVF PRN PRN PRN Reason: Saline Flush Sodium Chloride (Flush - Normal Saline) 10 ml IVF Q12HR [facility] Last Admin: 06/26/18 12:59 Dose: 10 ml Spironolactone (Aldactone) 12.5 mg PO QAM-WM [facility] Last Admin: 06/26/18 12:57 Dose: 12.5 mg Temazepam (Restoril) 30 mg PO HSPRN PRN PRN Reason: Insomnia Last Admin: 06/25/18 23:19 Dose: 30 mg Tramadol HCl (Ultram) 50 mg PO Q6H PRN PRN Reason: Mild Pain (1-3) Trazodone HCl (Desyrel) 50 mg PO [facility] Last Admin: 06/25/18 20:28 Dose: 50 mg
[2018-06-26] MEDS: cefTRIAXone\\ROCEPHIN 2 GM in Sodium Chloride 0.9% 100 ML IVPB SCH (20:31)
[2018-06-26] MEDS: traZODone HCl 50 MG TAB PO SCH (20:34)
[2018-06-26] MEDS: Apixaban 5 MG TAB PO SCH (21:20)
[2018-06-26] MEDS: Temazepam 15 MG CAP PO PRN (21:25)
[2018-06-27 05:15] LABS: Anion Gap 12 mmol/L (10-20); BUN (Urea Nitrogen) 18 mg/dL (8.4-25.7); Calc. Creatinine Clearance 122 mL/min (70-130); Calcium 8.4 mg/dL (7.8-10.44); Carbon Dioxide 35 mmol/L (23-31); Chloride 90 mmol/L (98-107); Estimated GFR-MDRD Greater than 90; Glucose 176 mg/dL (83-110); Potassium 3.3 mmol/L (3.5-5.1); Sodium 134 mmol/L (136-145)
[2018-06-27] MEDS: Rosuvastatin 10 MG TAB PO SCH (09:10)
[2018-06-27] MEDS: Furosemide 40 MG/4 ML VIAL SLOW IVP SCH (09:10)
[2018-06-27] MEDS: Insulin Glargine 20 UNITS in Pre-Filled Syringe 1 EACH SC SCH ×2 (09:10→21:12)
[2018-06-27] MEDS: Apixaban 5 MG TAB PO SCH ×2 (09:10→21:05)
[2018-06-27] MEDS: Spironolactone 25 MG TAB PO SCH (09:11)
[2018-06-27] MEDS: Pregabalin 50 MG CAP PO SCH ×2 (09:11→21:05)
[2018-06-27] MEDS: Carvedilol 3.125 MG TAB PO SCH ×2 (09:11→18:00)
[2018-06-27] MEDS: Aspirin 81 mg Enteric Coated Tablet PO SCH (09:11)
[2018-06-27] MEDS: Multivitamin W/ Minerals 1 TAB PO SCH (09:11)
[2018-06-27] MEDS ORDERED: Potassium Chloride 20 MEQ TAB PO SCH (11:00)
--- NOTE | 2018-06-27 11:38 | PRG ---
DATE OF SERVICE: 06/27/2018 SUBJECTIVE: Yogi Mayo is status post radiofrequency ablation yesterday. Atrial flutter is better. Less short of breath. Nurse tells me that from time to time, he puts on his BiPAP. OBJECTIVE: VITAL SIGNS: His saturations are 97 today on 4 L, temperature 99, pulse 104, blood pressure 99/67. CHEST: Bilateral crackles without any wheezing. CARDIAC: Normal S1 and S2, regular. ABDOMEN: No masses. LABORATORY DATA: Lytes are normal. IMPRESSION: 1. Status post respiratory failure, congestive heart failure. 2. Pneumonia. 3. Status post ablation. 4. Sleep apnea. PLAN: Deescalate antibiotics, switch him to oral medication. Neb treatments. Supportive care. Nocturnal BiPAP. We will follow while at the MICU. Job ID: [id number]
[2018-06-27] MEDS: HumaLOG 300 UNITS/3 ML VIAL SC PRN ×3 (12:35→21:19)
--- NOTE | 2018-06-27 13:18 | PDOC.PN ---
- Subjective Encounter Start Date: 06/27/18 Encounter Start Time: 11:40 Subjective: no sob or palp -: wearing bipap now, ate his breakfast - Objective Resuscitation Status - Order Detail: 06/17/18 01:48 Resuscitation Status Routine Resuscitation Status: FULL: Full Resuscitation Discussed with: d/w patient at bedside 06/22/18 15:13 Resuscitation Status Routine Resuscitation Status: FULL: Full Resuscitation MAR Reviewed: Yes Vital Signs & Weight: Vital Signs (12 hours) Temp Pulse Pulse Pulse Resp BP BP 06/27/18 11:40 98.8 F 107 H 15 06/27/18 10:18 113 H 107 H 117/91 H 111/70 06/27/18 08:20 116 H 108 H 06/27/18 07:55 06/27/18 07:43 99.1 F 104 H 20 06/27/18 06:41 101 H 06/27/18 04:00 98.1 F 98 31 H 06/27/18 02:19 100 BP BP Pulse Ox Pulse Ox Pulse Ox 06/27/18 11:40 107/64 95 06/27/18 10:18 98 99 06/27/18 08:20 97 99 06/27/18 07:55 97 06/27/18 07:43 99/67 97 06/27/18 06:41 98 06/27/18 04:00 91/67 99 06/27/18 02:19 Weight Admit Weight 210 lb 15.718 oz Weight 223 lb 3.2 oz Most Recent Monitor Data Heart Rate from ECG 64 NIBP 108/74 NIBP BP-Mean 85 Respiration from ECG 19 SpO2 92 I&O: 06/26/18 06/27/18 06/28/18 06:59 06:59 06:59 Intake Total 580 1149 Output Total 1000 1800 Balance -420 -540 Result Diagrams: 06/26/18 04:25 06/27/18 04:40 Additional Labs: Accuchecks 06/27/18 06/27/18 06/26/18 10:42 05:59 20:05 POC Glucose 268 H 148 H 312 H 06/26/18 16:40 POC Glucose 191 H Phys Exam - Physical Examination HEENT: PERRLA, moist MMs Neck: no JVD, supple Respiratory: no wheezing, no rales Cardiovascular: RRR, no significant murmur Gastrointestinal: soft, non-tender, positive bowel sounds Musculoskeletal: pulses present, edema present Neurological: non-focal, moves all 4 limbs Psychiatric: normal affect, A&O x 3 Dx/Plan (1) Sepsis Code(s): A41.9 - SEPSIS, UNSPECIFIED ORGANISM Status: Acute Qualifiers: Sepsis type: Streptococcus group B Qualified Code(s): A40.1 - Sepsis due to streptococcus, group B (2) Acute NE Code(s): I21.9 - ACUTE MYOCARDIAL INFARCTION, UNSPECIFIED Status: Acute Qualifiers: Myocardial infarction type: non-ST elevation myocardial infarction Qualified Code(s): I21.4 - Non-ST elevation (NSTEMI) myocardial infarction Comment: for med treatment (3) ALISON (acute kidney injury) Code(s): N17.9 - ACUTE KIDNEY FAILURE, UNSPECIFIED Status: Acute Comment: resolving (4) Metabolic acidosis Code(s): E87.2 - ACIDOSIS Status: Resolved (5) FLORY (obstructive sleep apnea) Code(s): G47.33 - OBSTRUCTIVE SLEEP APNEA (ADULT) (PEDIATRIC) Status: Chronic (6) Cardiogenic shock Code(s): R57.0 - CARDIOGENIC SHOCK Status: Resolved (7) DM2 (diabetes mellitus, type 2) Status: Chronic Qualifiers: Diabetes mellitus mechanical press operator insulin use: without mechanical press operator use Diabetes mellitus complication status: with unspecified complications Qualified Code(s) : E11.8 - Type 2 diabetes mellitus with unspecified complications Comment: labile (8) HTN (hypertension) Code(s): I10 - ESSENTIAL (PRIMARY) HYPERTENSION Status: Chronic Qualifiers: Hypertension type: essential hypertension Qualified Code(s): I10 - Essential (primary) hypertension (9) Physical deconditioning Code(s): R53.81 - OTHER MALAISE Status: Acute (10) Atrial flutter Code(s): I48.92 - UNSPECIFIED ATRIAL FLUTTER Status: Acute Qualifiers: Atrial flutter type: unspecified Qualified Code(s): I48.92 - Unspecified atrial flutter Comment: s/p ablation (11) Bacteremia Code(s): R78.81 - BACTEREMIA Status: Acute Comment: strep agalactiae - Plan is on ceftriaxone -: continue fentanyl tts, lantus, lasix iv daily -: asp, crestor, eliquis, coreg, imdur and spironolactone -: replace potassium, to ambulate more as tolerated -: needs placement/rehab * . Review of Systems - Medications/Allergies Allergies/Adverse Reactions: Allergies Allergy/AdvReac Type Severity Reaction Status Date / Time amoxicillin [Amoxicillin] Allergy Verified 05/30/16 08:08 Medications: Current Medications Apixaban (Eliquis) 5 mg PO BID [facility] Last Admin: 06/27/18 09:10 Dose: 5 mg Aspirin (Ecotrin) 81 mg PO DAILY [facility] Last Admin: 06/27/18 09:11 Dose: 81 mg Carvedilol (Coreg) 3.125 mg PO BID-WM [facility] Last Admin: 06/27/18 09:11 Dose: 3.125 mg Cefdinir (Omnicef) 300 mg PO BID [facility] Dextrose/Water (Dextrose 50%) 25 gm IVP PRN PRN PRN Reason: HYPOGLYCEMIA PROTOCOL Furosemide (Lasix) 40 mg SLOW IVP DAILY [facility] Last Admin: 06/27/18 09:10 Dose: 40 mg Glucagon (Glucagon) 1 mg IM PRN PRN PRN Reason: HYPOGLYCEMIA PROTOCOL Dextrose/Water (D5w) 1,000 mls @ 0 mls/hr IV INF PRN PRN Reason: HYPOGLYCEMIA PROTOCOL Insulin Glargine 20 units/ (Miscellaneous Medication) 0.2 mls @ 0 mls/hr SC HS [facility] Last Admin: 06/26/18 20:38 Dose: 0.2 mls Insulin Glargine 20 units/ (Miscellaneous Medication) 0.2 mls @ 0 mls/hr SC QAM [facility] Last Admin: 06/27/18 09:10 Dose: 0.2 mls Insulin Human Lispro (Humalog) 0 units SC .AGGRESSIVE SLIDING PRN; Protocol PRN Reason: AGGRESSIVE SLIDING SCALE Last Admin: 06/27/18 12:35 Dose: 9 unit Iron/Minerals/Multivitamins (Theragran M) 1 tab PO DAILY [facility] Last Admin: 06/27/18 09:11 Dose: 1 tab Isosorbide Mononitrate (Imdur) 60 mg PO DAILY [facility] Last Admin: 06/27/18 09:11 Dose: 60 mg Nitroglycerin (Nitrostat) 0.4 mg SL Q5MIN PRN PRN Reason: Chest Pain Last Admin: 06/17/18 04:19 Dose: 0.4 mg Ondansetron HCl (Zofran) 4 mg IVP Q6H PRN PRN Reason: Nausea/Vomiting Last Admin: 06/20/18 09:17 Dose: 4 mg Pregabalin (Lyrica) 50 mg PO BID [facility] Last Admin: 06/27/18 09:11 Dose: 50 mg Rosuvastatin Calcium (Crestor) 10 mg PO DAILY [facility] Last Admin: 06/27/18 09:10 Dose: 10 mg Simethicone (Mylicon Chewable) 80 mg PO PCHS PRN PRN Reason: Gas Pain Last Admin: 06/25/18 23:19 Dose: 80 mg Sodium Chloride (Flush - Normal Saline) 10 ml IVF PRN PRN PRN Reason: Saline Flush Sodium Chloride (Flush - Normal Saline) 10 ml IVF Q12HR [facility] Last Admin: 06/27/18 09:12 Dose: 10 ml Spironolactone (Aldactone) 12.5 mg PO QAM-WM [facility] Last Admin: 06/27/18 09:11 Dose: 12.5 mg Temazepam (Restoril) 30 mg PO HSPRN PRN PRN Reason: Insomnia Last Admin: 06/26/18 21:25 Dose: 30 mg Trazodone HCl (Desyrel) 50 mg PO HS [facility] Last Admin: 06/26/18 20:34 Dose: 50 mg
[2018-06-27] MEDS: Cefdinir 300 MG CAP PO SCH (21:05)
[2018-06-27] MEDS: Temazepam 15 MG CAP PO PRN (21:06)
[2018-06-27] MEDS: traZODone HCl 50 MG TAB PO SCH (21:06)
[2018-06-28 04:33] LABS: Hemoglobin 13.4 g/dL (14.0-18.0); Platelet Count 165 thou/uL (130-400)
[2018-06-28 05:15] LABS: BUN (Urea Nitrogen) 16 mg/dL (8.4-25.7); Calc. Creatinine Clearance 123 mL/min (70-130); Calcium 8.6 mg/dL (7.8-10.44); Estimated GFR-MDRD Greater than 90; Glucose 164 mg/dL (83-110)
[2018-06-28 05:24] LABS: Anion Gap 10 mmol/L (10-20); Carbon Dioxide 37 mmol/L (23-31); Chloride 90 mmol/L (98-107); Potassium 3.5 mmol/L (3.5-5.1); Sodium 133 mmol/L (136-145)
[2018-06-28] MEDS: HumaLOG 300 UNITS/3 ML VIAL SC PRN ×3 (05:54→17:22)
[2018-06-28] MEDS: Insulin Glargine 20 UNITS in Pre-Filled Syringe 1 EACH SC SCH ×2 (10:49→21:16)
[2018-06-28] MEDS: Apixaban 5 MG TAB PO SCH ×2 (10:51→20:08)
[2018-06-28] MEDS: Multivitamin W/ Minerals 1 TAB PO SCH (10:51)
[2018-06-28] MEDS: Aspirin 81 mg Enteric Coated Tablet PO SCH (10:51)
[2018-06-28] MEDS: Rosuvastatin 10 MG TAB PO SCH (10:51)
[2018-06-28] MEDS: Carvedilol 3.125 MG TAB PO SCH ×2 (10:51→17:20)
[2018-06-28] MEDS: Pregabalin 50 MG CAP PO SCH ×2 (10:51→20:08)
[2018-06-28] MEDS: Cefdinir 300 MG CAP PO SCH ×2 (10:51→20:08)
[2018-06-28] MEDS: Spironolactone 25 MG TAB PO SCH (10:51)
[2018-06-28] MEDS: Furosemide 40 MG/4 ML VIAL SLOW IVP SCH (10:52)
--- NOTE | 2018-06-28 10:53 | PRG ---
DATE OF SERVICE: 06/28/2018 SUBJECTIVE: This morning, still short of breath. OBJECTIVE: VITAL SIGNS: His sats are 94% on 4 L, temperature 97, pulse 109, and blood pressure 127/95. CHEST: Bilateral crackles. CARDIAC: Normal S1 and S2. No gallops. ABDOMEN: No masses. IMPRESSION: 1. Status post respiratory failure. 2. Status post myocardial infarction. 3. Supraventricular tachycardia. PLAN: Continue p.o. antibiotics, neb treatments, and supportive care. DISPOSITION: As per Cardiology. Job ID: [id number]
[2018-06-28] MEDS ORDERED: Potassium Chloride 20 MEQ TAB PO SCH (11:15)
[2018-06-28] MEDS ORDERED: AcetaZOLAMIDE 250 MG TAB PO SCH (11:30)
--- NOTE | 2018-06-28 13:09 | PDOC.PN ---
- Subjective Encounter Start Date: 06/28/18 Encounter Start Time: 11:30 Subjective: is seen ambulating in hallway -: no sob or chest pain - Objective Resuscitation Status - Order Detail: 06/17/18 01:48 Resuscitation Status Routine Resuscitation Status: FULL: Full Resuscitation Discussed with: d/w patient at bedside 06/22/18 15:13 Resuscitation Status Routine Resuscitation Status: FULL: Full Resuscitation MAR Reviewed: Yes Vital Signs & Weight: Vital Signs (12 hours) Temp Pulse Pulse Pulse Resp BP BP 06/28/18 10:52 105 H 18 06/28/18 08:34 119 H 107 H 127/95 H 99/64 06/28/18 08:00 06/28/18 07:27 97.7 F 109 H 18 06/28/18 04:00 98.2 F 98 18 BP Pulse Ox Pulse Ox Pulse Ox 06/28/18 10:52 107/64 100 06/28/18 08:34 98 99 06/28/18 08:00 98 06/28/18 07:27 108/70 98 06/28/18 04:00 105/69 97 Weight Admit Weight 210 lb 15.718 oz Weight 220 lb Most Recent Monitor Data Heart Rate from ECG 64 NIBP 108/74 NIBP BP-Mean 85 Respiration from ECG 19 SpO2 92 I&O: 06/27/18 06/28/18 06/29/18 06:59 06:59 06:59 Intake Total 1149 2024 Output Total 1800 2250 400 Balance -989 -512 -685 Result Diagrams: 06/28/18 04:00 06/28/18 04:52 Additional Labs: Accuchecks 06/28/18 06/28/18 06/27/18 10:25 05:50 21:13 POC Glucose 397 H 150 H 357 H 06/27/18 16:34 POC Glucose 291 H Phys Exam - Physical Examination HEENT: PERRLA, moist MMs Neck: no JVD, supple Respiratory: no wheezing, no rales Cardiovascular: RRR, no significant murmur Gastrointestinal: soft, non-tender, positive bowel sounds Musculoskeletal: no edema, pulses present Neurological: non-focal, moves all 4 limbs Psychiatric: A&O x 3 Dx/Plan (1) Sepsis Code(s): A41.9 - SEPSIS, UNSPECIFIED ORGANISM Status: Acute Qualifiers: Sepsis type: Streptococcus group B Qualified Code(s): A40.1 - Sepsis due to streptococcus, group B (2) Acute [place] Code(s): I21.9 - ACUTE MYOCARDIAL INFARCTION, UNSPECIFIED Status: Acute Qualifiers: Myocardial infarction type: non-ST elevation myocardial infarction Qualified Code(s): I21.4 - Non-ST elevation (NSTEMI) myocardial infarction Comment: for med treatment (3) ALISON (acute kidney injury) Code(s): N17.9 - ACUTE KIDNEY FAILURE, UNSPECIFIED Status: Resolved (4) Metabolic acidosis Code(s): E87.2 - ACIDOSIS Status: Resolved (5) FLORY (obstructive sleep apnea) Code(s): G47.33 - OBSTRUCTIVE SLEEP APNEA (ADULT) (PEDIATRIC) Status: Chronic (6) Cardiogenic shock Code(s): R57.0 - CARDIOGENIC SHOCK Status: Resolved (7) DM2 (diabetes mellitus, type 2) Status: Chronic Qualifiers: Diabetes mellitus penitentiary insulin use: without intermediate card tender use Diabetes mellitus complication status: with unspecified complications Qualified Code(s) : E11.8 - Type 2 diabetes mellitus with unspecified complications Comment: labile (8) HTN (hypertension) Code(s): I10 - ESSENTIAL (PRIMARY) HYPERTENSION Status: Chronic Qualifiers: Hypertension type: essential hypertension Qualified Code(s): I10 - Essential (primary) hypertension (9) Physical deconditioning Code(s): R53.81 - OTHER MALAISE Status: Acute (10) Atrial flutter Code(s): I48.92 - UNSPECIFIED ATRIAL FLUTTER Status: Resolved Qualifiers: Atrial flutter type: unspecified Qualified Code(s): I48.92 - Unspecified atrial flutter Comment: s/p ablation in sinus (11) Bacteremia Code(s): R78.81 - BACTEREMIA Status: Acute Comment: strep agalactiae - Plan is mobilizing and amb in hallway now -: may tx to med floor depending on bipap usage -: rehab eval -: is recovering well, on omnicef, lasix oral -: continue eliquis, coreg, asp, imdur, spironolactone, crestor * . Review of Systems - Medications/Allergies Allergies/Adverse Reactions: Allergies Allergy/AdvReac Type Severity Reaction Status Date / Time amoxicillin [Amoxicillin] Allergy Verified 05/30/16 08:08 Medications: Current Medications Apixaban (Eliquis) 5 mg PO BID [facility] Last Admin: 06/28/18 10:51 Dose: 5 mg Aspirin (Ecotrin) 81 mg PO DAILY [facility] Last Admin: 06/28/18 10:51 Dose: 81 mg Carvedilol (Coreg) 3.125 mg PO BID-[facility] Last Admin: 06/28/18 10:51 Dose: 3.125 mg Cefdinir (Omnicef) 300 mg PO BID [facility] Last Admin: 06/28/18 10:51 Dose: 300 mg Dextrose/Water (Dextrose 50%) 25 gm IVP PRN PRN PRN Reason: HYPOGLYCEMIA PROTOCOL Furosemide (Lasix) 40 mg PO DAILY-[facility] Glucagon (Glucagon) 1 mg IM PRN PRN PRN Reason: HYPOGLYCEMIA PROTOCOL Dextrose/Water (D5w) 1,000 mls @ 0 mls/hr IV INF PRN PRN Reason: HYPOGLYCEMIA PROTOCOL Insulin Glargine 20 units/ (Miscellaneous Medication) 0.2 mls @ 0 mls/hr SC [facility] Last Admin: 06/27/18 21:12 Dose: 0.2 mls Insulin Glargine 20 units/ (Miscellaneous Medication) 0.2 mls @ 0 mls/hr SC QAM [facility] Last Admin: 06/28/18 10:49 Dose: 0.2 mls Insulin Human Lispro (Humalog) 0 units SC .AGGRESSIVE SLIDING PRN; Protocol PRN Reason: AGGRESSIVE SLIDING SCALE Last Admin: 06/28/18 10:49 Dose: 13 unit Iron/Minerals/Multivitamins (Theragran M) 1 tab PO DAILY [facility] Last Admin: 06/28/18 10:51 Dose: 1 tab Isosorbide Mononitrate (Imdur) 60 mg PO DAILY [facility] Last Admin: 06/28/18 10:51 Dose: 60 mg Nitroglycerin (Nitrostat) 0.4 mg SL Q5MIN PRN PRN Reason: Chest Pain Last Admin: 06/17/18 04:19 Dose: 0.4 mg Ondansetron HCl (Zofran) 4 mg IVP Q6H PRN PRN Reason: Nausea/Vomiting Last Admin: 06/20/18 09:17 Dose: 4 mg Potassium Chloride (Klor-Con 10) 10 meq PO QA-[facility] Pregabalin (Lyrica) 50 mg PO BID [facility] Last Admin: 06/28/18 10:51 Dose: 50 mg Rosuvastatin Calcium (Crestor) 10 mg PO DAILY [facility] Last Admin: 06/28/18 10:51 Dose: 10 mg Simethicone (Mylicon Chewable) 80 mg PO PCHS PRN PRN Reason: Gas Pain Last Admin: 06/25/18 23:19 Dose: 80 mg Sodium Chloride (Flush - Normal Saline) 10 ml IVF PRN PRN PRN Reason: Saline Flush Sodium Chloride (Flush - Normal Saline) 10 ml IVF Q12HR [facility] Last Admin: 06/28/18 10:53 Dose: 10 ml Spironolactone (Aldactone) 12.5 mg PO QAM-WM [facility] Last Admin: 06/28/18 10:51 Dose: 12.5 mg Temazepam (Restoril) 30 mg PO HSPRN PRN PRN Reason: Insomnia Last Admin: 06/27/18 21:06 Dose: 30 mg Trazodone HCl (Desyrel) 50 mg PO HS [facility] Last Admin: 06/27/18 21:06 Dose: 50 mg
[2018-06-28] MEDS: glipiZIDE 5 MG TAB PO SCH (17:20)
[2018-06-28] MEDS: metFORMIN 500 MG TAB PO SCH (17:20)
[2018-06-28] MEDS: traZODone HCl 50 MG TAB PO SCH (20:08)
[2018-06-28] MEDS: Temazepam 15 MG CAP PO PRN (22:07)
[2018-06-29 05:10] LABS: Anion Gap 14 mmol/L (10-20); BUN (Urea Nitrogen) 12 mg/dL (8.4-25.7); Calc. Creatinine Clearance 117 mL/min (70-130); Calcium 8.9 mg/dL (7.8-10.44); Carbon Dioxide 31 mmol/L (23-31); Chloride 92 mmol/L (98-107); Estimated GFR-MDRD Greater than 90; Glucose 171 mg/dL (83-110); Potassium 3.2 mmol/L (3.5-5.1); Sodium 134 mmol/L (136-145)
[2018-06-29] MEDS: HumaLOG 300 UNITS/3 ML VIAL SC PRN ×3 (06:15→16:47)
--- NOTE | 2018-06-29 09:22 | RAD ---
PORTABLE CHEST 1 VIEW: Date: 06/29/18 Time: 0516 hours HISTORY: Pulmonary edema. FINDINGS/IMPRESSION: Comparison made with exam of 06/26/18. There are changes of median sternotomy. The heart is enlarged. There is pulmonary vascular congestion with bilateral pleural effusions and adjacent infiltrate/atelectatic changes. No pneumothoraces are seen. There are degenerative changes in the spine. POS: [facility]
[2018-06-29] MEDS: Carvedilol 3.125 MG TAB PO SCH ×2 (09:23→16:48)
[2018-06-29] MEDS: Potassium Chloride 10 MEQ TAB PO SCH (09:23)
[2018-06-29] MEDS: metFORMIN 500 MG TAB PO SCH ×2 (09:23→16:48)
[2018-06-29] MEDS: glipiZIDE 5 MG TAB PO SCH ×2 (09:23→16:48)
[2018-06-29] MEDS: Furosemide 40 MG TAB PO SCH (09:23)
[2018-06-29] MEDS: Spironolactone 25 MG TAB PO SCH (09:24)
[2018-06-29] MEDS: Cefdinir 300 MG CAP PO SCH ×2 (09:24→20:32)
[2018-06-29] MEDS: Insulin Glargine 20 UNITS in Pre-Filled Syringe 1 EACH SC SCH ×2 (09:24→20:32)
[2018-06-29] MEDS: Aspirin 81 mg Enteric Coated Tablet PO SCH (09:24)
[2018-06-29] MEDS: Apixaban 5 MG TAB PO SCH ×2 (09:24→20:32)
[2018-06-29] MEDS: Rosuvastatin 10 MG TAB PO SCH (09:25)
[2018-06-29] MEDS: Pregabalin 50 MG CAP PO SCH ×2 (09:25→20:32)
[2018-06-29] MEDS: Multivitamin W/ Minerals 1 TAB PO SCH (09:25)
--- NOTE | 2018-06-29 12:00 | PDOC.PN ---
- Subjective Encounter Start Date: 06/29/18 Encounter Start Time: 11:00 Subjective: no sob, is sitting in chair - Objective Resuscitation Status - Order Detail: 06/17/18 01:48 Resuscitation Status Routine Resuscitation Status: FULL: Full Resuscitation Discussed with: d/w patient at bedside 06/22/18 15:13 Resuscitation Status Routine Resuscitation Status: FULL: Full Resuscitation MAR Reviewed: Yes Vital Signs & Weight: Vital Signs (12 hours) Temp Pulse Pulse Resp BP BP BP 06/29/18 11:01 97.8 F 108 H 18 99/68 06/29/18 08:20 109 H 97/68 06/29/18 08:00 06/29/18 07:44 98.9 F 110 H 16 99/67 06/29/18 07:24 06/29/18 04:00 99.3 F 110 H 12 98/72 06/29/18 00:00 98.1 F 97 16 97/58 L Pulse Ox Pulse Ox 06/29/18 11:01 92 L 06/29/18 08:20 96 06/29/18 08:00 92 L 06/29/18 07:44 92 L 06/29/18 07:24 95 06/29/18 04:00 94 L 06/29/18 00:00 95 Weight Admit Weight 210 lb 15.718 oz Weight 217 lb 11.2 oz Most Recent Monitor Data Heart Rate from ECG 64 NIBP 108/74 NIBP BP-Mean 85 Respiration from ECG 19 SpO2 92 I&O: 06/28/18 06/29/18 06/30/18 06:59 06:59 06:59 Intake Total 2023 1024 240 Output Total 2250 2575 Balance -226 -1551 240 Result Diagrams: 06/28/18 04:00 06/29/18 04:33 Additional Labs: Accuchecks 06/29/18 06/29/18 06/28/18 10:26 05:46 20:31 POC Glucose 235 H 171 H 313 H 06/28/18 16:41 POC Glucose 323 H Phys Exam - Physical Examination HEENT: PERRLA, moist MMs Neck: no JVD, supple Respiratory: no wheezing, no rales Cardiovascular: RRR, no significant murmur Gastrointestinal: soft, non-tender, positive bowel sounds Musculoskeletal: pulses present, edema present Neurological: non-focal, moves all 4 limbs Psychiatric: A&O x 3 Dx/Plan (1) Sepsis Code(s): A41.9 - SEPSIS, UNSPECIFIED ORGANISM Status: Acute Qualifiers: Sepsis type: Streptococcus group B Qualified Code(s): A40.1 - Sepsis due to streptococcus, group B (2) Acute [place] Code(s): I21.9 - ACUTE MYOCARDIAL INFARCTION, UNSPECIFIED Status: Acute Qualifiers: Myocardial infarction type: non-ST elevation myocardial infarction Qualified Code(s): I21.4 - Non-ST elevation (NSTEMI) myocardial infarction Comment: for med treatment (3) ALISON (acute kidney injury) Code(s): N17.9 - ACUTE KIDNEY FAILURE, UNSPECIFIED Status: Resolved (4) Metabolic acidosis Code(s): E87.2 - ACIDOSIS Status: Resolved (5) FLORY (obstructive sleep apnea) Code(s): G47.33 - OBSTRUCTIVE SLEEP APNEA (ADULT) (PEDIATRIC) Status: Chronic (6) Cardiogenic shock Code(s): R57.0 - CARDIOGENIC SHOCK Status: Resolved (7) DM2 (diabetes mellitus, type 2) Status: Chronic Qualifiers: Diabetes mellitus 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: without 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 Diabetes mellitus complication status: with unspecified complications Qualified Code(s) : E11.8 - Type 2 diabetes mellitus with unspecified complications Comment: labile (8) HTN (hypertension) Code(s): I10 - ESSENTIAL (PRIMARY) HYPERTENSION Status: Chronic Qualifiers: Hypertension type: essential hypertension Qualified Code(s): I10 - Essential (primary) hypertension (9) Physical deconditioning Code(s): R53.81 - OTHER MALAISE Status: Acute (10) Atrial flutter Code(s): I48.92 - UNSPECIFIED ATRIAL FLUTTER Status: Resolved Qualifiers: Atrial flutter type: unspecified Qualified Code(s): I48.92 - Unspecified atrial flutter Comment: s/p ablation in sinus (11) Bacteremia Code(s): R78.81 - BACTEREMIA Status: Acute Comment: strep agalactiae - Plan has ambulated in hallway in icu yesterday -: is improving clinically slowly, uses bipap prn -: may tx to med floor if ok with pulm -: awaiting rehab eval or swing bed -: is on omnicef, nebs, asp, eliquis, coreg, imdur and spironolactone * . dm is labile, has erratic eating habit. will add his home dose dm meds along with lantus Review of Systems - Medications/Allergies Allergies/Adverse Reactions: Allergies Allergy/AdvReac Type Severity Reaction Status Date / Time amoxicillin [Amoxicillin] Allergy Verified 05/30/16 08:08 Medications: Current Medications Apixaban (Eliquis) 5 mg PO BID [facility] Last Admin: 06/29/18 09:24 Dose: 5 mg Aspirin (Ecotrin) 81 mg PO DAILY [facility] Last Admin: 06/29/18 09:24 Dose: 81 mg Carvedilol (Coreg) 3.125 mg PO BID-[facility] Last Admin: 06/29/18 09:23 Dose: 3.125 mg Cefdinir (Omnicef) 300 mg PO BID [facility] Last Admin: 06/29/18 09:24 Dose: 300 mg Dextrose/Water (Dextrose 50%) 25 gm IVP PRN PRN PRN Reason: HYPOGLYCEMIA PROTOCOL Furosemide (Lasix) 40 mg PO DAILY-[facility] Last Admin: 06/29/18 09:23 Dose: 40 mg Glipizide (Glucotrol) 5 mg PO BID-[facility] Last Admin: 06/29/18 09:23 Dose: 5 mg Glucagon (Glucagon) 1 mg IM PRN PRN PRN Reason: HYPOGLYCEMIA PROTOCOL Dextrose/Water (D5w) 1,000 mls @ 0 mls/hr IV INF PRN PRN Reason: HYPOGLYCEMIA PROTOCOL Insulin Glargine 20 units/ (Miscellaneous Medication) 0.2 mls @ 0 mls/hr SC HS [facility] Last Admin: 06/28/18 21:16 Dose: 0.2 mls Insulin Glargine 20 units/ (Miscellaneous Medication) 0.2 mls @ 0 mls/hr SC QAM [facility] Last Admin: 06/29/18 09:24 Dose: 0.2 mls Insulin Human Lispro (Humalog) 0 units SC .AGGRESSIVE SLIDING PRN; Protocol PRN Reason: AGGRESSIVE SLIDING SCALE Last Admin: 06/29/18 10:53 Dose: 6 unit Iron/Minerals/Multivitamins (Theragran M) 1 tab PO DAILY [facility] Last Admin: 06/29/18 09:25 Dose: 1 tab Isosorbide Mononitrate (Imdur) 60 mg PO DAILY [facility] Last Admin: 06/29/18 09:24 Dose: 60 mg Metformin HCl (Glucophage) 500 mg PO BID-[facility] Last Admin: 06/29/18 09:23 Dose: 500 mg Nitroglycerin (Nitrostat) 0.4 mg SL Q5MIN PRN PRN Reason: Chest Pain Last Admin: 06/17/18 04:19 Dose: 0.4 mg Ondansetron HCl (Zofran) 4 mg IVP Q6H PRN PRN Reason: Nausea/Vomiting Last Admin: 06/20/18 09:17 Dose: 4 mg Potassium Chloride (Klor-Con 10) 10 meq PO QA-[facility] Last Admin: 06/29/18 09:23 Dose: 10 meq Pregabalin (Lyrica) 50 mg PO BID [facility] Last Admin: 06/29/18 09:25 Dose: 50 mg Rosuvastatin Calcium (Crestor) 10 mg PO DAILY [facility] Last Admin: 06/29/18 09:25 Dose: 10 mg Simethicone (Mylicon Chewable) 80 mg PO PCHS PRN PRN Reason: Gas Pain Last Admin: 06/25/18 23:19 Dose: 80 mg Sodium Chloride (Flush - Normal Saline) 10 ml IVF PRN PRN PRN Reason: Saline Flush Sodium Chloride (Flush - Normal Saline) 10 ml IVF Q12HR [facility] Last Admin: 06/29/18 09:25 Dose: 10 ml Spironolactone (Aldactone) 12.5 mg PO QAM-[facility] Last Admin: 06/29/18 09:24 Dose: 12.5 mg Temazepam (Restoril) 30 mg PO HS PRN PRN Reason: Insomnia Last Admin: 06/28/18 22:07 Dose: 30 mg Trazodone HCl (Desyrel) 50 mg PO HS [facility] Last Admin: 06/28/18 20:08 Dose: 50 mg
[2018-06-29] MEDS ORDERED: Potassium Chloride 20 MEQ TAB PO SCH (15:00)
--- NOTE | 2018-06-29 16:07 | PRG ---
DATE OF SERVICE: 06/29/2018 SERVICE: Pulmonary Medicine. INTERVAL HISTORY: The patient is actually doing quite well from respiratory standpoint. He indicates that his breathing significantly improved when he originally presented, but overnight, he went from 1.5 L nasal cannula up to 2.5 L nasal cannula. As such, he sees this is a setback. That being said, he is relatively asymptomatic. He denies any current chest discomfort, nausea, or vomiting. He had a little bit of tightness in the chest on waking this morning. He wears a total face mask at home. The full-face mask here is uncomfortable because it blows air into his tear duct and out his eye, which is uncomfortable for him. He does not have a total face mask available here currently. PHYSICAL EXAMINATION: VITAL SIGNS: Afebrile, pulse 108, blood pressure 99/68, respirations 18, saturation 97% on 1.5 L nasal cannula. HEART: Tachycardic. Regular. ABDOMEN: Soft, nontender, and nondistended. Bowel sounds are positive. MUSCULOSKELETAL: No cyanosis or clubbing. No pitting in the bilateral lower extremities. NEUROLOGIC: Grossly nonfocal. LABORATORY DATA: Sodium 134, potassium 3.2. Basic metabolic profile is otherwise unremarkable/stable. Blood cultures x4 are growing strep agalactiae. The repeat blood cultures drawn on the 22 were unremarkable. IMAGING: Chest x-ray demonstrates bilateral pleural parenchymal opacifications, possibly consistent with pneumonia and pleural effusion is likely present bilaterally. Sternotomy wires are noted. ASSESSMENT: 1. Acute hypoxic respiratory failure. 2. Community-acquired pneumonia. 3. Bacteremia secondary to Streptococcus. 4. Acute on chronic systolic heart failure (15% ejection fraction). 5. Recent history of tachyarrhythmia. DISCUSSION AND PLAN: We will continue our antibiotics and other supportive measures. We will diurese the patient to euvolemia. The next time the patient's goes home, I have asked that she bring up the noninvasive ventilation device that the patient prefers to use, so that he can use it for the duration of his hospital stay. Pulmonary Critical Care will continue to follow along. Potassium will be replaced today. Job ID: [id number]
[2018-06-29] MEDS: traZODone HCl 50 MG TAB PO SCH (20:31)
[2018-06-29] MEDS: Temazepam 15 MG CAP PO PRN (20:31)
[2018-06-30 04:02] LABS: Hemoglobin 13.5 g/dL (14.0-18.0); Platelet Count 235 thou/uL (130-400)
[2018-06-30 04:24] LABS: Anion Gap 13 mmol/L (10-20); BUN (Urea Nitrogen) 14 mg/dL (8.4-25.7); Calc. Creatinine Clearance 111 mL/min (70-130); Calcium 8.8 mg/dL (7.8-10.44); Carbon Dioxide 28 mmol/L (23-31); Chloride 97 mmol/L (98-107); Estimated GFR-MDRD 89; Glucose 173 mg/dL (83-110); Potassium 4.2 mmol/L (3.5-5.1); Sodium 134 mmol/L (136-145)
[2018-06-30] MEDS: HumaLOG 300 UNITS/3 ML VIAL SC PRN ×3 (05:46→16:59)
[2018-06-30] MEDS: Multivitamin W/ Minerals 1 TAB PO SCH (08:25)
[2018-06-30] MEDS: glipiZIDE 5 MG TAB PO SCH ×2 (08:25→16:59)
[2018-06-30] MEDS: Pregabalin 50 MG CAP PO SCH ×2 (08:25→21:18)
[2018-06-30] MEDS: Rosuvastatin 10 MG TAB PO SCH (08:25)
[2018-06-30] MEDS: Aspirin 81 mg Enteric Coated Tablet PO SCH (08:25)
[2018-06-30] MEDS: Cefdinir 300 MG CAP PO SCH ×2 (08:25→21:16)
[2018-06-30] MEDS: Potassium Chloride 10 MEQ TAB PO SCH (08:25)
[2018-06-30] MEDS: Apixaban 5 MG TAB PO SCH ×2 (08:25→21:16)
[2018-06-30] MEDS: Insulin Glargine 20 UNITS in Pre-Filled Syringe 1 EACH SC SCH ×2 (08:26→21:16)
[2018-06-30] MEDS: Furosemide 40 MG TAB PO SCH (08:26)
[2018-06-30] MEDS: Spironolactone 25 MG TAB PO SCH (08:26)
[2018-06-30] MEDS: Carvedilol 3.125 MG TAB PO SCH ×2 (08:26→16:59)
[2018-06-30] MEDS: metFORMIN 500 MG TAB PO SCH ×2 (08:26→16:59)
--- NOTE | 2018-06-30 11:32 | PDOC.PN ---
- Subjective Encounter Start Date: 06/30/18 Encounter Start Time: 07:45 Subjective: awake, sitting in chair -: no sob, feels better - Objective Resuscitation Status - Order Detail: 06/17/18 01:48 Resuscitation Status Routine Resuscitation Status: FULL: Full Resuscitation Discussed with: d/w patient at bedside 06/22/18 15:13 Resuscitation Status Routine Resuscitation Status: FULL: Full Resuscitation MAR Reviewed: Yes Vital Signs & Weight: Vital Signs (12 hours) Temp Pulse Resp BP BP Pulse Ox 06/30/18 07:20 98.6 F 115 H 29 H 111/63 93 L 06/30/18 07:16 95 06/30/18 03:50 98.1 F 124 H 18 101/64 94 L Weight Admit Weight 210 lb 15.718 oz Weight 217 lb 9 oz Most Recent Monitor Data Heart Rate from ECG 64 NIBP 108/74 NIBP BP-Mean 85 Respiration from ECG 19 SpO2 92 I&O: 06/29/18 06/30/18 07/01/18 06:59 06:59 06:59 Intake Total 1024 1180 Output Total 2575 1350 Balance -1551 -170 Result Diagrams: 06/30/18 03:50 06/30/18 03:50 Additional Labs: Accuchecks 06/30/18 06/30/18 06/29/18 10:40 05:32 20:14 POC Glucose 193 H 168 H 145 H 06/29/18 16:30 POC Glucose 174 H Phys Exam - Physical Examination HEENT: PERRLA, moist MMs Neck: no JVD, supple Respiratory: no wheezing, no rales Cardiovascular: RRR, no significant murmur Gastrointestinal: soft, non-tender, positive bowel sounds Musculoskeletal: no edema, pulses present Neurological: non-focal, moves all 4 limbs Psychiatric: A&O x 3 Dx/Plan (1) Sepsis Code(s): A41.9 - SEPSIS, UNSPECIFIED ORGANISM Status: Acute Qualifiers: Sepsis type: Streptococcus group B Qualified Code(s): A40.1 - Sepsis due to streptococcus, group B Comment: resolving (2) Acute [place] Code(s): I21.9 - ACUTE MYOCARDIAL INFARCTION, UNSPECIFIED Status: Resolved Qualifiers: Myocardial infarction type: non-ST elevation myocardial infarction Qualified Code(s): I21.4 - Non-ST elevation (NSTEMI) myocardial infarction Comment: for med treatment (3) ALISON (acute kidney injury) Code(s): N17.9 - ACUTE KIDNEY FAILURE, UNSPECIFIED Status: Resolved (4) Metabolic acidosis Code(s): E87.2 - ACIDOSIS Status: Resolved (5) FLORY (obstructive sleep apnea) Code(s): G47.33 - OBSTRUCTIVE SLEEP APNEA (ADULT) (PEDIATRIC) Status: Chronic (6) Cardiogenic shock Code(s): R57.0 - CARDIOGENIC SHOCK Status: Resolved (7) DM2 (diabetes mellitus, type 2) Status: Chronic Qualifiers: 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 use: without buttermaker continuous churn use Diabetes mellitus complication status: with unspecified complications Qualified Code(s) : E11.8 - Type 2 diabetes mellitus with unspecified complications Comment: labile (8) HTN (hypertension) Code(s): I10 - ESSENTIAL (PRIMARY) HYPERTENSION Status: Chronic Qualifiers: Hypertension type: essential hypertension Qualified Code(s): I10 - Essential (primary) hypertension (9) Physical deconditioning Code(s): R53.81 - OTHER MALAISE Status: Acute (10) Atrial flutter Code(s): I48.92 - UNSPECIFIED ATRIAL FLUTTER Status: Resolved Qualifiers: Atrial flutter type: unspecified Qualified Code(s): I48.92 - Unspecified atrial flutter Comment: s/p ablation in sinus (11) Bacteremia Code(s): R78.81 - BACTEREMIA Status: Acute Comment: strep agalactiae - Plan will have life vest tomorrow -: awaiting placement, bipap with home full face mask at night -: is improving with his deconditioning, amb in hallway with PT and RW -: eating better now, on omnicef, nebs, eliquis, asp, coreg, imdur and spirono -: hemostable, is in IMCU due to bipap prn * . Review of Systems - Medications/Allergies Allergies/Adverse Reactions: Allergies Allergy/AdvReac Type Severity Reaction Status Date / Time amoxicillin [Amoxicillin] Allergy Verified 05/30/16 08:08 Medications: Current Medications Apixaban (Eliquis) 5 mg PO BID [facility] Last Admin: 06/30/18 08:25 Dose: 5 mg Aspirin (Ecotrin) 81 mg PO DAILY [facility] Last Admin: 06/30/18 08:25 Dose: 81 mg Carvedilol (Coreg) 3.125 mg PO BID-[facility] Last Admin: 06/30/18 08:26 Dose: 3.125 mg Cefdinir (Omnicef) 300 mg PO BID [facility] Last Admin: 06/30/18 08:25 Dose: 300 mg Dextrose/Water (Dextrose 50%) 25 gm IVP PRN PRN PRN Reason: HYPOGLYCEMIA PROTOCOL Furosemide (Lasix) 40 mg PO DAILY-[facility] Last Admin: 06/30/18 08:26 Dose: 40 mg Glipizide (Glucotrol) 5 mg PO BID-[facility] Last Admin: 06/30/18 08:25 Dose: 5 mg Glucagon (Glucagon) 1 mg IM PRN PRN PRN Reason: HYPOGLYCEMIA PROTOCOL Dextrose/Water (D5w) 1,000 mls @ 0 mls/hr IV INF PRN PRN Reason: HYPOGLYCEMIA PROTOCOL Insulin Glargine 20 units/ (Miscellaneous Medication) 0.2 mls @ 0 mls/hr SC HS [facility] Last Admin: 06/29/18 20:32 Dose: 0.2 mls Insulin Glargine 20 units/ (Miscellaneous Medication) 0.2 mls @ 0 mls/hr SC QAM [facility] Last Admin: 06/30/18 08:26 Dose: 0.2 mls Insulin Human Lispro (Humalog) 0 units SC .AGGRESSIVE SLIDING PRN; Protocol PRN Reason: AGGRESSIVE SLIDING SCALE Last Admin: 06/30/18 11:24 Dose: 3 unit Iron/Minerals/Multivitamins (Theragran M) 1 tab PO DAILY [facility] Last Admin: 06/30/18 08:25 Dose: 1 tab Isosorbide Mononitrate (Imdur) 60 mg PO DAILY [facility] Last Admin: 06/30/18 08:25 Dose: 60 mg Metformin HCl (Glucophage) 500 mg PO BID-[facility] Last Admin: 06/30/18 08:26 Dose: 500 mg Nitroglycerin (Nitrostat) 0.4 mg SL Q5MIN PRN PRN Reason: Chest Pain Last Admin: 06/17/18 04:19 Dose: 0.4 mg Ondansetron HCl (Zofran) 4 mg IVP Q6H PRN PRN Reason: Nausea/Vomiting Last Admin: 06/20/18 09:17 Dose: 4 mg Potassium Chloride (Klor-Con 10) 10 meq PO QAM-WM [facility] Last Admin: 06/30/18 08:25 Dose: 10 meq Pregabalin (Lyrica) 50 mg PO BID [facility] Last Admin: 06/30/18 08:25 Dose: 50 mg Rosuvastatin Calcium (Crestor) 10 mg PO DAILY [facility] Last Admin: 06/30/18 08:25 Dose: 10 mg Simethicone (Mylicon Chewable) 80 mg PO PCHS PRN PRN Reason: Gas Pain Last Admin: 06/25/18 23:19 Dose: 80 mg Sodium Chloride (Flush - Normal Saline) 10 ml IVF PRN PRN PRN Reason: Saline Flush Sodium Chloride (Flush - Normal Saline) 10 ml IVF Q12HR [facility] Last Admin: 06/30/18 08:27 Dose: 10 ml Spironolactone (Aldactone) 12.5 mg PO QAM-WM [facility] Last Admin: 06/30/18 08:26 Dose: 12.5 mg Temazepam (Restoril) 30 mg PO HS PRN PRN Reason: Insomnia Last Admin: 06/29/18 20:31 Dose: 30 mg Trazodone HCl (Desyrel) 50 mg PO HS [facility] Last Admin: 06/29/18 20:31 Dose: 50 mg
--- NOTE | 2018-06-30 17:31 | PRG ---
DATE OF SERVICE: 06/30/2018 SUBJECTIVE: Mr. Mayo is much more verbal in the last time I saw him. His only concern is that he get a sleeping pill. OBJECTIVE: VITAL SIGNS: He is afebrile, heart rate is 109, respiratory rate 22, oximetry is 96% on room air, and blood pressure 101/69. GENERAL: Says [employer] works for him. LUNGS: Surprisingly clear. HEART: Regular rhythm. ABDOMEN: Soft. IMPRESSION: 1. Pneumococcal bacteremia with community-acquired pneumonia. 2. Acute hypoxic respiratory failure. 3. Chronic systolic heart failure with acute decompensation. 4. Recent tachyarrhythmias. 5. Extreme deconditioning. At this point, he is clinically improved. He has temazepam ordered for sleep p.r.n. We will have to ask for this. This is reasonable. Job ID: [id number]
[2018-06-30] MEDS: Ivabradine 5 MG TAB PO SCH (21:16)
[2018-06-30] MEDS: traZODone HCl 50 MG TAB PO SCH (21:16)
[2018-06-30] MEDS: Temazepam 15 MG CAP PO PRN (21:17)
[2018-07-01] MEDS: HumaLOG 300 UNITS/3 ML VIAL SC PRN ×2 (06:09→12:18)
[2018-07-01 06:30] LABS: Anion Gap 15 mmol/L (10-20); BUN (Urea Nitrogen) 15 mg/dL (8.4-25.7); Calc. Creatinine Clearance 111 mL/min (70-130); Calcium 9.1 mg/dL (7.8-10.44); Carbon Dioxide 28 mmol/L (23-31); Chloride 97 mmol/L (98-107); Estimated GFR-MDRD 89; Glucose 160 mg/dL (83-110); Potassium 3.6 mmol/L (3.5-5.1); Sodium 136 mmol/L (136-145)
[2018-07-01] MEDS: Apixaban 5 MG TAB PO SCH ×2 (08:39→20:06)
[2018-07-01] MEDS: Cefdinir 300 MG CAP PO SCH ×2 (08:39→20:06)
[2018-07-01] MEDS: Rosuvastatin 10 MG TAB PO SCH (08:39)
[2018-07-01] MEDS: Ivabradine 5 MG TAB PO SCH ×2 (08:39→20:06)
[2018-07-01] MEDS: Spironolactone 25 MG TAB PO SCH (08:39)
[2018-07-01] MEDS: glipiZIDE 5 MG TAB PO SCH ×2 (08:39→17:31)
[2018-07-01] MEDS: Aspirin 81 mg Enteric Coated Tablet PO SCH (08:40)
[2018-07-01] MEDS: Potassium Chloride 10 MEQ TAB PO SCH (08:40)
[2018-07-01] MEDS: metFORMIN 500 MG TAB PO SCH ×2 (08:40→17:30)
[2018-07-01] MEDS: Pregabalin 50 MG CAP PO SCH ×2 (08:40→20:06)
[2018-07-01] MEDS: Multivitamin W/ Minerals 1 TAB PO SCH (08:40)
[2018-07-01] MEDS: Insulin Glargine 20 UNITS in Pre-Filled Syringe 1 EACH SC SCH ×2 (08:40→20:06)
[2018-07-01] MEDS: Furosemide 40 MG TAB PO SCH (08:41)
[2018-07-01] MEDS: Carvedilol 3.125 MG TAB PO SCH ×2 (08:41→17:30)
[2018-07-01] MEDS ORDERED: ALPRAZolam 0.5 MG TAB PO SCH ×2 (09:00→23:48)
--- NOTE | 2018-07-01 11:42 | PDOC.PN ---
- Subjective Encounter Start Date: 07/01/18 Encounter Start Time: 07:00 Subjective: says he gets anxious and the feeling to go on bipap -: no chest pain or palp - Objective Resuscitation Status - Order Detail: 06/17/18 01:48 Resuscitation Status Routine Resuscitation Status: FULL: Full Resuscitation Discussed with: d/w patient at bedside 06/22/18 15:13 Resuscitation Status Routine Resuscitation Status: FULL: Full Resuscitation MAR Reviewed: Yes Vital Signs & Weight: Vital Signs (12 hours) Temp Pulse Resp BP Pulse Ox 07/01/18 10:58 98.5 F 105 H 16 96/65 90 L 07/01/18 07:55 95 07/01/18 07:22 97.9 F 107 H 18 98/68 94 L 07/01/18 04:00 97.8 F 99 20 103/63 92 L 07/01/18 00:00 99.4 F 103 H 18 114/75 91 L Weight Admit Weight 210 lb 15.718 oz Weight 218 lb Most Recent Monitor Data Heart Rate from ECG 64 NIBP 108/74 NIBP BP-Mean 85 Respiration from ECG 19 SpO2 92 I&O: 06/30/18 07/01/18 07/02/18 06:59 06:59 06:59 Intake Total 1180 1210 Output Total 1350 1075 Balance -170 135 Result Diagrams: 06/30/18 03:50 07/01/18 05:53 Additional Labs: Accuchecks 07/01/18 07/01/18 06/30/18 10:30 05:23 19:56 POC Glucose 218 H 160 H 206 H 06/30/18 16:35 POC Glucose 185 H Phys Exam - Physical Examination HEENT: PERRLA, sclera anicteric Neck: no JVD, supple Respiratory: no wheezing, no rales Cardiovascular: RRR, no significant murmur Gastrointestinal: soft, non-tender, positive bowel sounds Musculoskeletal: no edema, pulses present Neurological: non-focal, moves all 4 limbs Psychiatric: normal affect, A&O x 3 Dx/Plan (1) Sepsis Code(s): A41.9 - SEPSIS, UNSPECIFIED ORGANISM Status: Acute Qualifiers: Sepsis type: Streptococcus group B Qualified Code(s): A40.1 - Sepsis due to streptococcus, group B Comment: resolving (2) Acute [place] Code(s): I21.9 - ACUTE MYOCARDIAL INFARCTION, UNSPECIFIED Status: Resolved Qualifiers: Myocardial infarction type: non-ST elevation myocardial infarction Qualified Code(s): I21.4 - Non-ST elevation (NSTEMI) myocardial infarction Comment: for med treatment (3) ALISON (acute kidney injury) Code(s): N17.9 - ACUTE KIDNEY FAILURE, UNSPECIFIED Status: Resolved (4) Metabolic acidosis Code(s): E87.2 - ACIDOSIS Status: Resolved (5) FLORY (obstructive sleep apnea) Code(s): G47.33 - OBSTRUCTIVE SLEEP APNEA (ADULT) (PEDIATRIC) Status: Chronic (6) Cardiogenic shock Code(s): R57.0 - CARDIOGENIC SHOCK Status: Resolved (7) DM2 (diabetes mellitus, type 2) Status: Chronic Qualifiers: Diabetes mellitus assisted insulin use: without assisted use Diabetes mellitus complication status: with unspecified complications Qualified Code(s) : E11.8 - Type 2 diabetes mellitus with unspecified complications Comment: labile (8) HTN (hypertension) Code(s): I10 - ESSENTIAL (PRIMARY) HYPERTENSION Status: Chronic Qualifiers: Hypertension type: essential hypertension Qualified Code(s): I10 - Essential (primary) hypertension (9) Physical deconditioning Code(s): R53.81 - OTHER MALAISE Status: Acute (10) Atrial flutter Code(s): I48.92 - UNSPECIFIED ATRIAL FLUTTER Status: Resolved Qualifiers: Atrial flutter type: unspecified Qualified Code(s): I48.92 - Unspecified atrial flutter Comment: s/p ablation in sinus (11) Bacteremia Code(s): R78.81 - BACTEREMIA Status: Acute Comment: strep agalactiae - Plan uses cpap at home with full face mask -: will get life vest today -: may dc anytime if placement is ready -: on omnicef, ivabradin, coreg, eliquis, asp, spironolactone and lasix -: hemostable, may tx out to medical floor after he gets life vest * . Review of Systems - Medications/Allergies Allergies/Adverse Reactions: Allergies Allergy/AdvReac Type Severity Reaction Status Date / Time amoxicillin [Amoxicillin] Allergy Verified 05/30/16 08:08 Medications: Current Medications Apixaban (Eliquis) 5 mg PO BID [facility] Last Admin: 07/01/18 08:39 Dose: 5 mg Aspirin (Ecotrin) 81 mg PO DAILY [facility] Last Admin: 07/01/18 08:40 Dose: 81 mg Carvedilol (Coreg) 3.125 mg PO BID-[facility] Last Admin: 07/01/18 08:41 Dose: 3.125 mg Cefdinir (Omnicef) 300 mg PO BID [facility] Last Admin: 07/01/18 08:39 Dose: 300 mg Dextrose/Water (Dextrose 50%) 25 gm IVP PRN PRN PRN Reason: HYPOGLYCEMIA PROTOCOL Furosemide (Lasix) 40 mg PO DAILY-[facility] Last Admin: 07/01/18 08:41 Dose: 40 mg Glipizide (Glucotrol) 5 mg PO BID-[facility] Last Admin: 07/01/18 08:39 Dose: 5 mg Glucagon (Glucagon) 1 mg IM PRN PRN PRN Reason: HYPOGLYCEMIA PROTOCOL Dextrose/Water (D5w) 1,000 mls @ 0 mls/hr IV INF PRN PRN Reason: HYPOGLYCEMIA PROTOCOL Insulin Glargine 20 units/ (Miscellaneous Medication) 0.2 mls @ 0 mls/hr SC HS [facility] Last Admin: 06/30/18 21:16 Dose: 0.2 mls Insulin Glargine 20 units/ (Miscellaneous Medication) 0.2 mls @ 0 mls/hr SC QAM [facility] Last Admin: 07/01/18 08:40 Dose: 0.2 mls Insulin Human Lispro (Humalog) 0 units SC .AGGRESSIVE SLIDING PRN; Protocol PRN Reason: AGGRESSIVE SLIDING SCALE Last Admin: 07/01/18 06:09 Dose: 3 unit Iron/Minerals/Multivitamins (Theragran M) 1 tab PO DAILY [facility] Last Admin: 07/01/18 08:40 Dose: 1 tab Isosorbide Mononitrate (Imdur) 60 mg PO DAILY [facility] Last Admin: 07/01/18 08:39 Dose: 60 mg Ivabradine (Corlanor) 5 mg PO BID [facility] Last Admin: 07/01/18 08:39 Dose: 5 mg Metformin HCl (Glucophage) 500 mg PO BID-[facility] Last Admin: 07/01/18 08:40 Dose: 500 mg Nitroglycerin (Nitrostat) 0.4 mg SL Q5MIN PRN PRN Reason: Chest Pain Last Admin: 12/12/18 04:19 Dose: 0.4 mg Ondansetron HCl (Zofran) 4 mg IVP Q6H PRN PRN Reason: Nausea/Vomiting Last Admin: 06/20/18 09:17 Dose: 4 mg Potassium Chloride (Klor-Con 10) 10 meq PO QAM-[facility] Last Admin: 07/01/18 08:40 Dose: 10 meq Pregabalin (Lyrica) 50 mg PO BID [facility] Last Admin: 07/01/18 08:40 Dose: 50 mg Rosuvastatin Calcium (Crestor) 10 mg PO DAILY [facility] Last Admin: 07/01/18 08:39 Dose: 10 mg Simethicone (Mylicon Chewable) 80 mg PO [facility] PRN PRN Reason: Gas Pain Last Admin: 06/25/18 23:19 Dose: 80 mg Sodium Chloride (Flush - Normal Saline) 10 ml IVF PRN PRN PRN Reason: Saline Flush Sodium Chloride (Flush - Normal Saline) 10 ml IVF Q12HR [facility] Last Admin: 07/01/18 08:41 Dose: 10 ml Spironolactone (Aldactone) 12.5 mg PO QAM-[facility] Last Admin: 07/01/18 08:39 Dose: 12.5 mg Temazepam (Restoril) 30 mg PO HS PRN PRN Reason: Insomnia Last Admin: 06/30/18 21:17 Dose: 30 mg Trazodone HCl (Desyrel) 50 mg PO HS [facility] Last Admin: 06/30/18 21:16 Dose: 50 mg
[2018-07-01 12:09] LABS: Actual Bicarbonate (HCO3a) 29.5 mEq/L (22-28); Analyzer IN Cardio OR; Base Excess (BEa) 7.2 mEq/L (-2.0 to +3.0); CO2 Tension 34.1 mmHg (35.0-45.0); Calcium, Ionized 1.05 mmol/L (1.12-1.30); Carboxyhemoglobin (COHb) 0.7 gm% (0.0-3.0); Hemoglobin (Hb) 13.6 g/dL (14.0-18.0); O2 Tension (PaO2) 191.6 mmHg (> 70.0); Potassium - ABG Lab 3.22 mmol/L (3.70-5.30)
[2018-07-01 12:15] LABS: Puncture Site ALINE; pH, Arterial 7.56 (7.35-7.45)
[2018-07-01] MEDS ORDERED: Furosemide 40 MG/4 ML VIAL SLOW IVP SCH (14:45)
--- NOTE | 2018-07-01 15:04 | PRG ---
DATE OF SERVICE: 07/01/2018 SERVICE: Pulmonary Medicine. INTERVAL HISTORY: The patient is doing fine from a respiratory standpoint. He is breathing comfortably. Whenever he is on BiPAP, he does well, but today, whenever he is off BiPAP, he starts to struggle a little bit. He requests to be put back on. He denies any current fevers, chills, nausea, or vomiting. There has been no interval change to his condition. PHYSICAL EXAMINATION: VITAL SIGNS: Afebrile, pulse 105, blood pressure 96/65, respirations 16, saturation 90% on room air. HEENT: Normocephalic and atraumatic. Sclerae white. Conjunctivae pink. Oral mucosa is moist without lesions. LUNGS: Excellent air entry. Dependent crackles are noted. There is a prolonged expiratory phase. No wheezing. HEART: Normal rate and regular. ABDOMEN: Soft, nontender, and nondistended. Bowel sounds are positive. MUSCULOSKELETAL: No cyanosis or clubbing. There is diffuse 2+ pitting throughout. GENITOURINARY: No James catheter in place. NEUROLOGIC: Grossly nonfocal. LABORATORY DATA: Sodium 136. Basic metabolic profile is otherwise unremarkable. Potassium is 3.6. Blood cultures x2 are growing strep agalactiae, but the repeat blood cultures x2 are negative to date. ASSESSMENT: 1. Acute hypoxic respiratory failure. 2. Acute on chronic systolic heart failure (15% EF). 3. Bacteremia secondary to Streptococcus. 4. Community-acquired pneumonia. 5. Atrial flutter with recent rapid ventricular response, returned to sinus rhythm. DISCUSSION AND PLAN: We will continue to diurese the patient through time. From my perspective, the patient is stable for transition out of the IMCU to the telemetry unit, so long as he can put his device on and off. The family is not interested in going home to pick up man his CPAP unit and so he will have to use one of ours while he remains inhouse. Job ID: [id number]
[2018-07-01] MEDS: Temazepam 15 MG CAP PO PRN (20:05)
[2018-07-01] MEDS: traZODone HCl 50 MG TAB PO SCH (20:06)
[2018-07-02 04:35] LABS: Phosphorus 3.9 mg/dL (2.3-4.7)
[2018-07-02 04:36] LABS: Anion Gap 16 mmol/L (10-20); BUN (Urea Nitrogen) 20 mg/dL (8.4-25.7); Calc. Creatinine Clearance 111 mL/min (70-130); Calcium 8.7 mg/dL (7.8-10.44); Carbon Dioxide 27 mmol/L (23-31); Chloride 99 mmol/L (98-107); Estimated GFR-MDRD 89; Glucose 111 mg/dL (83-110); Magnesium 1.8 mg/dL (1.6-2.6); Potassium 3.9 mmol/L (3.5-5.1); Sodium 138 mmol/L (136-145)
[2018-07-02] MEDS: Insulin Glargine 20 UNITS in Pre-Filled Syringe 1 EACH SC SCH ×2 (09:02→20:26)
[2018-07-02] MEDS: Multivitamin W/ Minerals 1 TAB PO SCH (09:03)
[2018-07-02] MEDS: Ivabradine 5 MG TAB PO SCH ×2 (09:03→20:27)
[2018-07-02] MEDS: Cefdinir 300 MG CAP PO SCH ×2 (09:03→20:26)
[2018-07-02] MEDS: Potassium Chloride 10 MEQ TAB PO SCH (09:03)
[2018-07-02] MEDS: Apixaban 5 MG TAB PO SCH ×2 (09:03→20:26)
[2018-07-02] MEDS: glipiZIDE 5 MG TAB PO SCH ×2 (09:03→16:42)
[2018-07-02] MEDS: Rosuvastatin 10 MG TAB PO SCH (09:03)
[2018-07-02] MEDS: Aspirin 81 mg Enteric Coated Tablet PO SCH (09:04)
[2018-07-02] MEDS: Spironolactone 25 MG TAB PO SCH (09:04)
[2018-07-02] MEDS: Pregabalin 50 MG CAP PO SCH ×2 (09:04→20:26)
[2018-07-02] MEDS: metFORMIN 500 MG TAB PO SCH ×2 (09:04→16:42)
[2018-07-02] MEDS: Carvedilol 3.125 MG TAB PO SCH ×2 (09:04→16:43)
[2018-07-02] MEDS: Furosemide 40 MG TAB PO SCH ×2 (09:04→14:06)
--- NOTE | 2018-07-02 13:38 | PRG ---
DATE OF SERVICE: 07/02/2018 SERVICE: Pulmonary Medicine. INTERVAL HISTORY: The patient simply cannot tolerate any breaks from BiPAP. It is a very poor prognostic sign, because of his non-oxygenation issue. Whenever he gets off the BiPAP, almost immediately starts feeling increasingly short winded. My suspicion is that a little bit of positive airway pressure is actually helping his heart with the cardiac output and when he loses it, he starts going into cardiogenic shock. Otherwise, there has been no interval change to his condition. He denies any current fevers or chills. He did not have any significant events overnight. PHYSICAL EXAMINATION: VITAL SIGNS: Afebrile, pulse 102, blood pressure 103/76, respirations 28, and saturation 91% on 23% FiO2 and a PEEP of 5. GENERAL: The patient is awake and alert. He is talking in full sentences, but does have significant dyspnea and increased work of breathing. HEART: Normal rate regular. ABDOMEN: Soft, nontender, and nondistended. Bowel sounds are positive. MUSCULOSKELETAL: No cyanosis or clubbing. No pitting in the bilateral lower extremities. NEUROLOGIC: Grossly nonfocal. LABORATORY DATA: Creatinine 0.85. Basic metabolic profile is otherwise unremarkable. Potassium 3.9, magnesium 1.8. Blood cultures x2 are unremarkable. Previous blood cultures were growing Strep agalactiae in 4/4. Urine culture is unremarkable. ASSESSMENT: 1. Acute hypoxic respiratory failure. 2. Acute on chronic systolic heart failure (15% ejection fraction). 3. Cardiogenic shock. 4. Community-acquired pneumonia, improving. 5. Bacteremia secondary to Streptococcus, resolved. 6. Atrial flutter, paroxysmal. DISCUSSION AND PLAN: We will continue to diurese the patient as much as he can tolerate. We will try to optimize heart function through time. At this point, however, my fear is that the BiPAP is providing him with a touch of positive airway pressure that is helping his heart with cardiac output. When he drops the BiPAP, he becomes immediately short of breath, this is not an oxygenation or lung issue. Pulmonary Critical Care will continue to follow along and he will certainly need to remain in the IMCU for now. If we cannot improve on cardiac output, long-term prognosis is quite poor. Job ID: [id number]
--- NOTE | 2018-07-02 14:05 | PDOC.PN ---
- Subjective Encounter Start Date: 07/02/18 Encounter Start Time: 11:15 Subjective: no chest pain or palp -: is wearing bipap, but takes it out and communicates and goes back on it - Objective Resuscitation Status - Order Detail: 06/17/18 01:48 Resuscitation Status Routine Resuscitation Status: FULL: Full Resuscitation Discussed with: d/w patient at bedside 06/22/18 15:13 Resuscitation Status Routine Resuscitation Status: FULL: Full Resuscitation MAR Reviewed: Yes Vital Signs & Weight: Vital Signs (12 hours) Temp Pulse Resp BP Pulse Ox 07/02/18 10:55 98.2 F 102 H 28 H 103/76 91 L 07/02/18 07:48 93 L 07/02/18 07:24 98.0 F 105 H 34 H 103/68 97 07/02/18 04:00 97.7 F 103 H 33 H 104/69 92 L 07/02/18 02:29 95 Weight Admit Weight 210 lb 15.718 oz Weight 216 lb Most Recent Monitor Data Heart Rate from ECG 64 NIBP 108/74 NIBP BP-Mean 85 Respiration from ECG 19 SpO2 92 I&O: 07/01/18 07/02/18 07/03/18 06:59 06:59 06:59 Intake Total 1210 800 Output Total 1075 945 Balance 135 -145 Result Diagrams: 06/30/18 03:50 07/02/18 03:30 Additional Labs: Accuchecks 07/02/18 07/02/18 07/01/18 10:32 05:59 20:48 POC Glucose 139 H 122 H 136 H 07/01/18 16:17 POC Glucose 124 H Phys Exam - Physical Examination HEENT: PERRLA, moist MMs Neck: no JVD, supple Respiratory: no wheezing, no rales Cardiovascular: RRR, no significant murmur Gastrointestinal: soft, non-tender, positive bowel sounds Musculoskeletal: no edema, pulses present Neurological: non-focal, moves all 4 limbs Psychiatric: A&O x 3 Dx/Plan (1) Sepsis Code(s): A41.9 - SEPSIS, UNSPECIFIED ORGANISM Status: Acute Qualifiers: Sepsis type: Streptococcus group B Qualified Code(s): A40.1 - Sepsis due to streptococcus, group B Comment: resolving (2) Acute [place] Code(s): I21.9 - ACUTE MYOCARDIAL INFARCTION, UNSPECIFIED Status: Resolved Qualifiers: Myocardial infarction type: non-ST elevation myocardial infarction Qualified Code(s): I21.4 - Non-ST elevation (NSTEMI) myocardial infarction Comment: for med treatment (3) ALISON (acute kidney injury) Code(s): N17.9 - ACUTE KIDNEY FAILURE, UNSPECIFIED Status: Resolved (4) Metabolic acidosis Code(s): E87.2 - ACIDOSIS Status: Resolved (5) FLORY (obstructive sleep apnea) Code(s): G47.33 - OBSTRUCTIVE SLEEP APNEA (ADULT) (PEDIATRIC) Status: Chronic (6) Cardiogenic shock Code(s): R57.0 - CARDIOGENIC SHOCK Status: Resolved (7) DM2 (diabetes mellitus, type 2) Status: Chronic Qualifiers: Diabetes mellitus long distance operator insulin use: without halfway use Diabetes mellitus complication status: with unspecified complications Qualified Code(s) : E11.8 - Type 2 diabetes mellitus with unspecified complications Comment: labile (8) HTN (hypertension) Code(s): I10 - ESSENTIAL (PRIMARY) HYPERTENSION Status: Chronic Qualifiers: Hypertension type: essential hypertension Qualified Code(s): I10 - Essential (primary) hypertension (9) Physical deconditioning Code(s): R53.81 - OTHER MALAISE Status: Acute (10) Atrial flutter Code(s): I48.92 - UNSPECIFIED ATRIAL FLUTTER Status: Resolved Qualifiers: Atrial flutter type: unspecified Qualified Code(s): I48.92 - Unspecified atrial flutter Comment: s/p ablation in sinus (11) Bacteremia Code(s): R78.81 - BACTEREMIA Status: Acute Comment: strep agalactiae - Plan is on omnicef, nebs prn -: continue asp, eliquis, coreg, imdur, spironolactone -: has oral lasix bid now, watch for renal function -: continue lantus and metformin -: to amb as tolerated, dc plan to snf if ok with pulm/cardio * . Review of Systems - Medications/Allergies Allergies/Adverse Reactions: Allergies Allergy/AdvReac Type Severity Reaction Status Date / Time amoxicillin [Amoxicillin] Allergy Verified 05/30/16 08:08 Medications: Current Medications Apixaban (Eliquis) 5 mg PO BID [facility] Last Admin: 07/02/18 09:03 Dose: 5 mg Aspirin (Ecotrin) 81 mg PO DAILY [facility] Last Admin: 07/02/18 09:04 Dose: 81 mg [facility] Last Admin: 07/02/18 09:04 Dose: 3.125 mg Cefdinir (Omnicef) 300 mg PO BID [facility] Last Admin: 07/02/18 09:03 Dose: 300 mg Dextrose/Water (Dextrose 50%) 25 gm IVP PRN PRN PRN Reason: HYPOGLYCEMIA PROTOCOL Furosemide (Lasix) 40 mg PO 0900,1400 [facility] Last Admin: 07/02/18 09:04 Dose: 40 mg [facility]) [facility] Last Admin: 07/02/18 09:03 Dose: 5 mg Glucagon (Glucagon) 1 mg IM PRN PRN PRN Reason: HYPOGLYCEMIA PROTOCOL Dextrose/Water (D5w) 1,000 mls @ 0 mls/hr IV INF PRN PRN Reason: HYPOGLYCEMIA PROTOCOL Insulin Glargine 20 units/ (Miscellaneous Medication) 0.2 mls @ 0 mls/hr SC HS [facility] Last Admin: 07/01/18 20:06 Dose: 0.2 mls Insulin Glargine 20 units/ (Miscellaneous Medication) 0.2 mls @ 0 mls/hr SC QAM [facility] Last Admin: 07/02/18 09:02 Dose: 0.2 mls Insulin Human Lispro (Humalog) 0 units SC .AGGRESSIVE SLIDING PRN; Protocol PRN Reason: AGGRESSIVE SLIDING SCALE Last Admin: 07/01/18 12:18 Dose: 6 unit Iron/Minerals/Multivitamins (Theragran M) 1 tab PO DAILY [facility] Last Admin: 07/02/18 09:03 Dose: 1 tab Isosorbide Mononitrate (Imdur) 60 mg PO DAILY [facility] Last Admin: 07/02/18 09:04 Dose: 60 mg Ivabradine (Corlanor) 5 mg PO BID [facility] Last Admin: 07/02/18 09:03 Dose: 5 mg Metformin [facility] ([facility]ophage) [facility] Last Admin: 07/02/18 09:04 Dose: 500 mg Nitroglycerin (Nitrostat) 0.4 mg SL Q5MIN PRN PRN Reason: Chest Pain Last Admin: 06/17/18 04:19 Dose: 0.4 mg Ondansetron HCl (Zofran) 4 mg IVP Q6H PRN PRN Reason: Nausea/Vomiting Last Admin: 06/20/18 09:17 Dose: 4 mg Potassium Chloride (Klor-Con 10) 10 meq PO QA-[facility] Last Admin: 07/02/18 09:03 Dose: 10 meq Pregabalin (Lyrica) 50 mg PO BID [facility] Last Admin: 07/02/18 09:04 Dose: 50 mg Rosuvastatin Calcium (Crestor) 10 mg PO DAILY [facility] Last Admin: 07/02/18 09:03 Dose: 10 mg Simethicone (Mylicon Chewable) [address] [facility] PRN PRN Reason: Gas Pain Last Admin: 06/25/18 23:19 Dose: 80 mg Sodium Chloride (Flush - Normal Saline) 10 ml IVF PRN PRN PRN Reason: Saline Flush Sodium Chloride (Flush - Normal Saline) 10 ml IVF Q12HR [facility] Last Admin: 07/02/18 09:05 Dose: 10 ml Spironolactone (Aldactone) 12.5 mg PO [facility] Last Admin: 07/02/18 09:04 Dose: 12.5 mg Temazepam (Restoril) 30 mg PO HS PRN PRN Reason: Insomnia Last Admin: 07/01/18 20:05 Dose: 30 mg Trazodone HCl (Desyrel) 50 mg PO HS [facility] Last Admin: 07/01/18 20:06 Dose: 50 mg
--- NOTE | 2018-07-02 14:57 | PDOC.CTH ---
Cardiology Progress Note - Subjective EP PROGRESS NOTE: 07/02/2018 Seen as follow up for atrial flutter and cardiomyopathy. Fitted for lifevest today during 3 month medical management time frame. No additional cardiac concerns or complaints. - Objective Vital Signs Temp Pulse Resp BP Pulse Ox 07/02/18 10:55 98.2 F 102 H 28 H 103/76 91 L 07/02/18 07:48 93 L 07/02/18 07:24 98.0 F 105 H 34 H 103/68 97 07/02/18 04:00 97.7 F 103 H 33 H 104/69 92 L Admit Weight 210 lb 15.718 oz Weight 216 lb 07/01/18 07/02/18 07/03/18 06:59 06:59 06:59 Intake Total 1210 800 Output Total 1075 945 Balance 135 -145 - Physical Examination General/Neuro: alert & oriented x3, NAD Neck: carotid US brisk, no JVD present Lungs: CTA Heart: PMI normal, RRR Abdomen: NT/ND, soft - Telemetry Telemetry Rhythm: SR - Labs Result Diagrams: 06/30/18 03:50 07/02/18 03:30 Troponin/CKMB Troponin I 40.010 ng/mL (< 0.028) H* 06/17/18 06:05 - Assessment/Plan 1. Typical atrial flutter -s/p CTI ablation last week with Dr. Sands. Now in SR 2. Systolic heart failure -EF 15-20% 3. Left bundle branch block 4. NSTEMI -revascularization performed with drug-eluting stents 5. Obesity 6. Diabetes 7. Hypoxic respiratory failure -attributed to congestive heart failure 8. Bacteremia -attributed to femoral line from ER, has been removed -ID following 9. Right lower lobe pneumonia 10. CHADS2-VASC: 5 ( HTN, CAD, diabetes, age, heart failure) - continue eliquis 5 mg BID x 30 days post flutter ablation Heart rhythm remains stable. Cardiomyopathy being medically optimized with lifevest until re-evalauation of EF in 3 months. If EF remains <35% despite optimal heart failure medical management, will discuss ICD with him. OK for DC by EP.
[2018-07-02] MEDS: traZODone HCl 50 MG TAB PO SCH (20:26)
[2018-07-02] MEDS: Temazepam 15 MG CAP PO PRN (20:26)
[2018-07-03] MEDS ORDERED: ALPRAZolam 0.5 MG TAB PO SCH (00:15)
[2018-07-03 04:44] LABS: Anion Gap 13 mmol/L (10-20); BUN (Urea Nitrogen) 25 mg/dL (8.4-25.7); Calc. Creatinine Clearance 94 mL/min (70-130); Calcium 8.7 mg/dL (7.8-10.44); Carbon Dioxide 31 mmol/L (23-31); Chloride 97 mmol/L (98-107); Estimated GFR-MDRD 74; Glucose 113 mg/dL (83-110); Potassium 3.7 mmol/L (3.5-5.1); Sodium 137 mmol/L (136-145)
[2018-07-03] MEDS ORDERED: Metolazone 5 MG TAB PO SCH (08:00)
[2018-07-03] MEDS: Aspirin 81 mg Enteric Coated Tablet PO SCH (09:29)
[2018-07-03] MEDS: Spironolactone 25 MG TAB PO SCH (09:30)
[2018-07-03] MEDS: Cefdinir 300 MG CAP PO SCH ×2 (09:30→22:00)
[2018-07-03] MEDS: Carvedilol 3.125 MG TAB PO SCH ×2 (09:30→18:09)
[2018-07-03] MEDS: Multivitamin W/ Minerals 1 TAB PO SCH (09:30)
[2018-07-03] MEDS: Pregabalin 50 MG CAP PO SCH ×2 (09:30→21:58)
[2018-07-03] MEDS: Furosemide 40 MG TAB PO SCH ×2 (09:31→15:41)
[2018-07-03] MEDS: Potassium Chloride 10 MEQ TAB PO SCH (09:31)
[2018-07-03] MEDS: Apixaban 5 MG TAB PO SCH ×2 (09:31→22:00)
[2018-07-03] MEDS: Ivabradine 5 MG TAB PO SCH ×2 (09:31→22:11)
[2018-07-03] MEDS: metFORMIN 500 MG TAB PO SCH (09:31)
[2018-07-03] MEDS: Rosuvastatin 10 MG TAB PO SCH (09:31)
--- NOTE | 2018-07-03 10:35 | PDOC.PN ---
- Subjective Encounter Start Date: 07/03/18 Encounter Start Time: 09:10 Subjective: is on bipap, awake -: is oriented - Objective Resuscitation Status - Order Detail: 06/17/18 01:48 Resuscitation Status Routine Resuscitation Status: FULL: Full Resuscitation Discussed with: d/w patient at bedside 06/22/18 15:13 Resuscitation Status Routine Resuscitation Status: FULL: Full Resuscitation MAR Reviewed: Yes Vital Signs & Weight: Vital Signs (12 hours) Temp Pulse Resp BP Pulse Ox 07/03/18 08:38 116 H 07/03/18 07:33 96.8 F L 104 H 38 H 103/69 97 07/03/18 04:00 98.4 F 100 33 H 95/65 94 L 07/03/18 02:19 96 07/03/18 00:00 97.5 F L 90 28 H 91/58 L 98 Weight Admit Weight 210 lb 15.718 oz Weight 211 lb Most Recent Monitor Data Heart Rate from ECG 64 NIBP 108/74 NIBP BP-Mean 85 Respiration from ECG 19 SpO2 92 I&O: 07/02/18 07/03/18 07/04/18 06:59 06:59 06:59 Intake Total 800 800 Output Total 945 400 Balance -145 400 Result Diagrams: 06/30/18 03:50 07/03/18 03:30 Additional Labs: Accuchecks 07/03/18 07/03/18 07/02/18 09:34 06:14 20:07 POC Glucose 148 H 130 H 124 H 07/02/18 07/02/18 16:47 10:32 POC Glucose 120 H 139 H Phys Exam - Physical Examination HEENT: PERRLA, moist MMs Neck: no JVD, supple Respiratory: no wheezing, no rales Cardiovascular: RRR, no significant murmur Gastrointestinal: soft, non-tender, positive bowel sounds Musculoskeletal: no edema, pulses present Neurological: non-focal, moves all 4 limbs Psychiatric: A&O x 3 Dx/Plan (1) Sepsis Code(s): A41.9 - SEPSIS, UNSPECIFIED ORGANISM Status: Acute Qualifiers: Sepsis type: Streptococcus group B Qualified Code(s): A40.1 - Sepsis due to streptococcus, group B Comment: resolving (2) Acute [place] Code(s): I21.9 - ACUTE MYOCARDIAL INFARCTION, UNSPECIFIED Status: Resolved Qualifiers: Myocardial infarction type: non-ST elevation myocardial infarction Qualified Code(s): I21.4 - Non-ST elevation (NSTEMI) myocardial infarction Comment: for med treatment (3) ALISON (acute kidney injury) Code(s): N17.9 - ACUTE KIDNEY FAILURE, UNSPECIFIED Status: Resolved (4) Metabolic acidosis Code(s): E87.2 - ACIDOSIS Status: Resolved (5) FLORY (obstructive sleep apnea) Code(s): G47.33 - OBSTRUCTIVE SLEEP APNEA (ADULT) (PEDIATRIC) Status: Chronic (6) Cardiogenic shock Code(s): R57.0 - CARDIOGENIC SHOCK Status: Resolved (7) DM2 (diabetes mellitus, type 2) Status: Chronic Qualifiers: Diabetes mellitus mcfp insulin use: without mcfp use Diabetes mellitus complication status: with unspecified complications Qualified Code(s) : E11.8 - Type 2 diabetes mellitus with unspecified complications Comment: labile (8) HTN (hypertension) Code(s): I10 - ESSENTIAL (PRIMARY) HYPERTENSION Status: Chronic Qualifiers: Hypertension type: essential hypertension Qualified Code(s): I10 - Essential (primary) hypertension (9) Physical deconditioning Code(s): R53.81 - OTHER MALAISE Status: Acute (10) Atrial flutter Code(s): I48.92 - UNSPECIFIED ATRIAL FLUTTER Status: Resolved Qualifiers: Atrial flutter type: unspecified Qualified Code(s): I48.92 - Unspecified atrial flutter Comment: s/p ablation in sinus (11) Bacteremia Code(s): R78.81 - BACTEREMIA Status: Resolved Comment: strep agalactiae - Plan is on increased dose of lasix with metolazone, last 24hrs urine output is d -: -own, he has had prior alison, will closely monitor renal function -: on omnicef, nebs, asp, eliquis, ivabradin, coreg, imdur, crestor -: lantus and glipizide -: awaiting placement, dc plan per pulm/cardio adv * . Review of Systems - Medications/Allergies Allergies/Adverse Reactions: Allergies Allergy/AdvReac Type Severity Reaction Status Date / Time amoxicillin [Amoxicillin] Allergy Verified 05/30/16 08:08 Medications: Current Medications Apixaban (Eliquis) 5 mg PO BID [facility] Last Admin: 07/03/18 09:31 Dose: 5 mg Aspirin (Ecotrin) 81 mg PO DAILY [facility] Last Admin: 07/03/18 09:29 Dose: 81 mg [facility] Last Admin: 07/03/18 09:30 Dose: 3.125 mg Cefdinir (Omnicef) 300 mg PO BID [facility] Last Admin: 07/03/18 09:30 Dose: 300 mg Dextrose/Water (Dextrose 50%) 25 gm IVP PRN PRN PRN Reason: HYPOGLYCEMIA PROTOCOL Furosemide (Lasix) 40 mg PO 0900,1400 [facility] Last Admin: 07/03/18 09:31 Dose: 40 mg [facility]) [facility] Last Admin: 07/02/18 16:42 Dose: 5 mg Glucagon (Glucagon) 1 mg IM PRN PRN PRN Reason: HYPOGLYCEMIA PROTOCOL Dextrose/Water (D5w) 1,000 mls @ 0 mls/hr IV INF PRN PRN Reason: HYPOGLYCEMIA PROTOCOL Insulin Glargine 20 units/ (Miscellaneous Medication) 0.2 mls @ 0 mls/hr SC HS [facility] Last Admin: 07/02/18 20:26 Dose: 0.2 mls Insulin Glargine 20 units/ (Miscellaneous Medication) 0.2 mls @ 0 mls/hr SC QAM [facility] Last Admin: 07/02/18 09:02 Dose: 0.2 mls Insulin Human Lispro (Humalog) 0 units SC .AGGRESSIVE SLIDING PRN; Protocol PRN Reason: AGGRESSIVE SLIDING SCALE Last Admin: 07/01/18 12:18 Dose: 6 unit Iron/Minerals/Multivitamins (Theragran M) 1 tab PO DAILY [facility] Last Admin: 07/03/18 09:30 Dose: 1 tab Isosorbide Mononitrate (Imdur) 60 mg PO DAILY [facility] Last Admin: 07/03/18 09:29 Dose: 60 mg Ivabradine (Corlanor) 5 mg PO BID [facility] Last Admin: 07/03/18 09:31 Dose: 5 mg Metformin [facility] (Gluc[facility]) [facility] Last Admin: 07/03/18 09:31 Dose: 500 mg Nitroglycerin (Nitrostat) 0.4 mg SL Q5MIN PRN PRN Reason: Chest Pain Last Admin: 06/17/18 04:19 Dose: 0.4 mg Ondansetron HCl (Zofran) 4 mg IVP Q6H PRN PRN Reason: Nausea/Vomiting Last Admin: 06/20/18 09:17 Dose: 4 mg Potassium Chloride (Klor-Con 10) 10 meq PO QAM[facility] Last Admin: 07/03/18 09:31 Dose: 10 meq Pregabalin (Lyrica) 50 mg PO BID [facility] Last Admin: 07/03/18 09:30 Dose: 50 mg Rosuvastatin Calcium (Crestor) 10 mg PO DAILY [facility] Last Admin: 07/03/18 09:31 Dose: 10 mg Simethicone (Mylicon Chewable) 80 mg PO PC PRN PRN Reason: Gas Pain Last Admin: 06/25/18 23:19 Dose: 80 mg Sodium Chloride (Flush - Normal Saline) 10 ml IVF PRN PRN PRN Reason: Saline Flush Sodium Chloride (Flush - Normal Saline) 10 ml IVF Q12HR [facility] Last Admin: 07/03/18 09:35 Dose: 10 ml Spironolactone (Aldactone) 12.5 mg PO QAM[facility] Last Admin: 07/03/18 09:30 Dose: 12.5 mg Temazepam (Restoril) 30 mg PO HS PRN PRN Reason: Insomnia Last Admin: 07/02/18 20:26 Dose: 30 mg Trazodone HCl (Desyrel) 50 mg PO HS [facility] Last Admin: 07/02/18 20:26 Dose: 50 mg
--- NOTE | 2018-07-03 12:23 | PRG ---
DATE OF SERVICE: 07/03/2018 SERVICE: Pulmonary Medicine. INTERVAL HISTORY: The patient is doing poorly overnight. He has had increasing respiratory effort. He is tachypneic. He is short of breath. He does not talk in full sentences today. He is not tolerating diuresis. Otherwise, there has been no interval change to his condition. PHYSICAL EXAMINATION: VITAL SIGNS: Afebrile, pulse 109, blood pressure 120/89, respirations 29, and saturation 89% on 40% FiO2 and a PEEP of 5. GENERAL: The patient is awake and alert. He has moderate respiratory distress. HEENT: Normocephalic and atraumatic. Sclerae are white. Conjunctivae are pink. Oral mucosa is moist without lesions. LUNGS: Decent air entry. Dependent crackles are noted. HEART: Normal rate, regular. ABDOMEN: Soft, nontender, and nondistended. Bowel sounds are positive. MUSCULOSKELETAL: No cyanosis or clubbing. No pitting in bilateral lower extremities. NEUROLOGIC: Grossly nonfocal. LABORATORY DATA: Basic metabolic profile is essentially unremarkable. Creatinine is trending upward to 1.0. Sodium 137, chloride 97. Multiple cultures are growing Streptococcus. That being said, most recent blood culture x2 is negative. ASSESSMENT: 1. Acute hypoxic respiratory failure. 2. Acute on chronic systolic heart failure (ejection fraction 15%). 3. Cardiogenic shock. 4. Community-acquired pneumonia, improving. 5. Bacteremia secondary to Streptococcus, resolved. 6. Atrial flutter, paroxysmal. DISCUSSION AND PLAN: We will move the patient out of the IMCU to the ICU. We will intubate the patient. Pulmonary/Critical Care will continue to follow very closely during this hospital stay. Ultimately, my fear is that we are dealing with a primary heart issue. The patient will be okay with intubation and tracheostomy, but to be told, I do not think we have the long-term strategy for dealing with his underlying heart issue. Pulmonary/Critical Care will continue to follow along. CRITICAL CARE TIME: 30 minutes. Job ID: [id number]
[2018-07-03] MEDS ORDERED: Midazolam HCl 2 mg/2 ml Vial ONE (12:35)
[2018-07-03] MEDS ORDERED: Propofol 1,000 MG/100 ML VIAL IV ONE (12:42)
[2018-07-03] MEDS ORDERED: SYSTANE 3.5 GM TUBE EA EYE PRN (12:48)
[2018-07-03] MEDS ORDERED: Ventilator Sedation Protocol 1 EACH FS SCH (12:48)
[2018-07-03] MEDS ORDERED: Propofol BOLUS 1,000 MG/100 ML VIAL IV PRN (12:53)
[2018-07-03] MEDS ORDERED: fentaNYL Citrate/PF 2,000 MCG in Sodium Chloride 0.9% 60 ML IV SCH (12:53)
[2018-07-03] MEDS ORDERED: Morphine 2 MG/ML SYRINGE SLOW IVP PRN (12:53)
[2018-07-03] MEDS ORDERED: Propofol 1,000 MG/100 ML VIAL IV PRN (12:53)
[2018-07-03] MEDS ORDERED: Lorazepam 2 MG/ML VIAL SLOW IVP PRN (12:53)
[2018-07-03] MEDS ORDERED: Fentanyl BOLUS 250 ML IVPB PRN (12:53)
[2018-07-03] MEDS ORDERED: DISCONTINUE PREVIOUS NARCOTIC PAIN MEDICATIONS AND BENZODIAZEPINES FS SCH (12:53)
[2018-07-03 13:16] LABS: Actual Bicarbonate (HCO3a) 25.3 mEq/L (22-28); Base Excess (BEa) -0.2 mEq/L (-2.0 to +3.0); CO2 Tension 44.3 mmHg (35.0-45.0); Calcium, Ionized 1.14 mmol/L (1.12-1.30); Carboxyhemoglobin (COHb) 1.7 gm% (0.0-3.0); Hemoglobin (Hb) 15.3 g/dL (14.0-18.0); O2 Tension (PaO2) 69.1 mmHg (> 70.0); pH, Arterial 7.38 (7.35-7.45)
[2018-07-03 13:20] LABS: Puncture Site RBA
[2018-07-03 13:21] LABS: ALV-art Gradient 481.575 (0-20)
--- NOTE | 2018-07-03 14:19 | PDOC.CTH ---
Cardiology Progress Note - Subjective EP PROGRESS NOTE: 07/03/2018 Seen as follow up for atrial flutter and cardiomyopathy. Transferred to ICU for intubation and acute hypoxic resp failure. - ROS not able to obtain ROS - Objective Vital Signs Temp Pulse Resp BP BP Pulse Ox 07/03/18 12:48 101 H 99/71 95 07/03/18 11:35 111 H 07/03/18 11:30 97.4 F L 109 H 29 H 120/89 07/03/18 08:38 116 H 07/03/18 07:46 94 L 07/03/18 07:33 96.8 F L 104 H 38 H 103/69 97 07/03/18 04:00 98.4 F 100 33 H 95/65 94 L 07/03/18 02:19 96 Admit Weight 210 lb 15.718 oz Weight 211 lb 07/02/18 07/03/18 07/04/18 06:59 06:59 06:59 Intake Total 800 800 Output Total 945 400 Balance -145 400 - Physical Examination General/Neuro: other: (Intubated/Sedated) Neck: carotid US brisk, no JVD present Heart: RRR Abdomen: NT/ND, soft - Telemetry Telemetry Rhythm: Sinus tachycardia - Labs Result Diagrams: 06/30/18 03:50 07/03/18 03:30 Troponin/CKMB Troponin I 40.010 ng/mL (< 0.028) H* 06/17/18 06:05 - Assessment/Plan 1. Typical atrial flutter -s/p CTI ablation last week with Dr. Sands. Now in Sinus tachycardia 2. Systolic heart failure -EF 15-20% 3. Left bundle branch block 4. NSTEMI -revascularization performed with drug-eluting stents 5. Obesity 6. Diabetes 7. Hypoxic respiratory failure -attributed to congestive heart failure/low EF -intubated 07/03/18 8. Bacteremia -attributed to femoral line from ER, has been removed -ID following 9. Right lower lobe pneumonia 10. CHADS2-VASC: 5 ( HTN, CAD, diabetes, age, heart failure) - continue eliquis 5 mg BID x 30 days post flutter ablation Heart rhythm remains stable. Some tachycardia with respiratory distress which is attributed to his heart failure. If his heart failure continues to prove challenging to stabilize we can consider placing a BiV ICD if he is cleared by ID considering his recent bacteremia. Ideally, BiV ICD would be placed later when more medically stable.
--- NOTE | 2018-07-03 15:17 | RAD ---
SINGLE VIEW OF HE CHEST: COMPARISON: 06/29/2018. History Endotracheal tube placement. Respiratory failure. FINDINGS: A single view of the chest shows an enlarged but stable cardiomediastinal silhouette. Endotracheal t ube is noted with its tip at the lower border of the clavicles. Evaluation is limited secondary to m ultiple overlying hemodynamic monitors. Diffuse mixed alveolar/interstitial opacities are seen in th e lungs. Pleural effusions may also be present. IMPRESSION: 1. Appropriate position of endotracheal tube. 2. Diffuse mixed infiltrates. POS: ESTEBANH
[2018-07-03] MEDS: glipiZIDE 5 MG TAB PO SCH ×2 (15:29→18:06)
[2018-07-03] MEDS: Insulin Glargine 20 UNITS in Pre-Filled Syringe 1 EACH SC SCH ×2 (15:30→22:13)
[2018-07-03 20:03] LABS: Bilirubin Negative (Negative); Blood, Urine Moderate (Negative); Clarity CLEAR (Clear); Glucose, Urine (Dipstick) Negative (Negative); Leukocyte Trace (Negative); Nitrite Negative (Negative); Protein, Urine (Dipstick) Negative (Neg-Trace); Specific Gravity, Urine 1.008 (1.002-1.036); Urobilinogen 0.2 mg/dL (0.2-1.0)
[2018-07-03 20:06] LABS: Bacteria/HPF None Seen HPF (None Seen); Hyaline Casts/LPF 7-10 HYALINE CAST LPF (0-3 Hyaline); Pathc Cast-AUWi Flag 2.32 (0-2.49); Squamous Epithelial 0-3 HPF (0-3)
[2018-07-03] MEDS: traZODone HCl 50 MG TAB PO SCH (22:00)
[2018-07-03] MEDS: Famotidine 40 MG/5 ML Oral Suspension PER TUBE SCH (22:11)
[2018-07-03] MEDS: HumaLOG 300 UNITS/3 ML VIAL SC PRN (23:27)
--- NOTE | 2018-07-04 01:08 | OP ---
DATE OF PROCEDURE: 07/03/2018 SERVICE: Pulmonary Medicine. PROCEDURE: Emergent endotracheal intubation. CONSENT: The procedure was performed emergently secondary to clinical condition and respiratory failure. MEDICATIONS USED: 1. Versed 2 mg IV push. 2. Etomidate 20 mg IV push. PREPROCEDURE DIAGNOSES: 1. Acute on chronic systolic heart failure. 2. Acute hypoxic respiratory failure. POSTPROCEDURE DIAGNOSES: 1. Acute hypoxic respiratory failure. 2. Acute on chronic systolic heart failure. PROCEDURE: Vital signs monitoring was accomplished by noninvasive hemodynamic monitoring, pulse oximetry, and telemetry. In the supine position, the patient was preoxygenated with [id number] ventilation, maintained with saturations of 96%. Following induction of anesthesia, a #4 GlideScope was inserted through the mouth offering clear identification of the posterior oropharynx and laryngeal structures with a grade 1 view and endotracheal tube was visualized passing through the vocal cords. Placement was confirmed by condensation in the endotracheal tube, colorimetric capnography, and bi-axillary chest auscultation. The endotracheal tube was secured at 26 cm, measured at the teeth. The patient was placed on mechanical ventilation with good return of volumes. Postprocedure x-ray demonstrated decent location of the endotracheal tube within the trachea. ESTIMATED BLOOD LOSS: None. COMPLICATIONS: None. Job ID: [id number]
[2018-07-04 04:44] LABS: Band 4 % (5-11); Hemoglobin 14.1 g/dL (14.0-18.0); Lymphocytes 10 % (21-51); MDiff Complete? YES; Mean Corpuscular HGB CONC 33.7 g/dL (32.0-36.0); Mean Corpuscular Hemoglobin 31.6 pg (27.0-31.0); Mean Corpuscular Volume 93.9 fL (78.0-98.0); Mean Platelet Volume 8.2 fL (7.4-10.4); Monocytes 2 % (0-10); Neutrophil 84 % (42-75); PLT Morphology Comment Appears Adequate; Platelet Count 298 thou/uL (130-400); Red Blood Cell (RBC) Count 4.47 mill/uL (4.70-6.10); White Blood Cell (WBC) Count 8.5 thou/uL (4.8-10.8)
[2018-07-04] MEDS: HumaLOG 300 UNITS/3 ML VIAL SC PRN ×3 (06:49→18:27)
[2018-07-04 07:46] LABS: Chloride 97 mmol/L (98-107); Sodium 136 mmol/L (136-145)
[2018-07-04 07:47] LABS: Calcium 8.7 mg/dL (7.8-10.44); Glucose 239 mg/dL (83-110)
[2018-07-04 07:49] LABS: Anion Gap 17 mmol/L (10-20); Carbon Dioxide 26 mmol/L (23-31)
[2018-07-04 07:51] LABS: BUN (Urea Nitrogen) 43 mg/dL (8.4-25.7); Calc. Creatinine Clearance 66 mL/min (70-130); Estimated GFR-MDRD 51
--- NOTE | 2018-07-04 08:55 | PDOC.CTH ---
Cardiology Progress Note - Subjective Pt reintubated yesterday for respitaory distress. Currently intubated and resting. Following commands - Objective Vital Signs Temp Pulse Resp BP Pulse Ox 07/04/18 08:36 106 H 95/61 100 07/04/18 08:34 104 H 20 100 07/04/18 08:00 98.5 F 17 07/04/18 07:00 98.6 F 07/04/18 06:00 17 07/04/18 04:00 99.9 F H 17 07/04/18 02:24 96 07/04/18 02:00 17 07/04/18 00:00 99.0 F 20 07/03/18 23:44 97 88/58 L 07/03/18 23:43 100 07/03/18 22:00 98.6 F 19 Admit Weight 208 lb 8.917 oz Weight 208 lb 8.917 oz 07/03/18 07/04/18 07/05/18 06:59 06:59 06:59 Intake Total 800 584.8 Output Total 400 2306 80 Balance 400 -1721.2 -80 - Physical Examination General/Neuro: alert & oriented x3, NAD, other: (intubated) Neck: carotid US brisk, no JVD present Lungs: CTA Heart: PMI normal, RRR Abdomen: NT/ND, soft Extremities: + femoral B - Labs Result Diagrams: 07/04/18 04:21 07/04/18 07:17 Troponin/CKMB Troponin I 40.010 ng/mL (< 0.028) H* 06/17/18 06:05 - Assessment/Plan Respiratory failue s/p aflutter ablation Cardiomyopathy LBBB Discussed with Dr. Albert Pt may benefit from biventricular pacing given his recent diagnosis of LBBB Will discuss with Dr. Bowman Continue vent support for now
[2018-07-04] MEDS: Aspirin 81 mg Enteric Coated Tablet PO SCH (09:12)
[2018-07-04] MEDS: Cefdinir 300 MG CAP PO SCH ×2 (09:12→20:06)
[2018-07-04] MEDS: glipiZIDE 5 MG TAB PO SCH ×2 (09:13→18:07)
[2018-07-04] MEDS: Multivitamin W/ Minerals 1 TAB PO SCH (09:13)
[2018-07-04] MEDS: Rosuvastatin 10 MG TAB PO SCH (09:13)
[2018-07-04] MEDS: Apixaban 5 MG TAB PO SCH ×2 (09:13→20:05)
[2018-07-04] MEDS: Potassium Chloride 10 MEQ TAB PO SCH (09:14)
[2018-07-04] MEDS: Pregabalin 50 MG CAP PO SCH ×2 (09:14→20:06)
[2018-07-04] MEDS: Ivabradine 5 MG TAB PO SCH ×2 (09:14→20:06)
[2018-07-04] MEDS: Furosemide 40 MG TAB PO SCH (09:14)
[2018-07-04] MEDS: Spironolactone 25 MG TAB PO SCH (09:15)
[2018-07-04] MEDS: Famotidine 40 MG/5 ML Oral Suspension PER TUBE SCH ×2 (09:16→20:30)
[2018-07-04] MEDS: Insulin Glargine 20 UNITS in Pre-Filled Syringe 1 EACH SC SCH ×2 (09:17→20:08)
[2018-07-04] MEDS: Carvedilol 3.125 MG TAB PO SCH ×2 (09:29→18:07)
--- NOTE | 2018-07-04 11:28 | RAD ---
CHEST 1 VIEW: HISTORY: Dyspnea. Followup. COMPARISON: 07/03/2018. FINDINGS: Cardiac silhouette is magnified and enlarged. Pulmonary vasculature remains markedly engorged with d ense widespread bilateral airspace disease. Opacity at the inferior hemithoraces is consistent with pleural fluid that is similar in appearance to the prior study. The patient is rotated rightward. E ndotracheal catheter remains in good radiographic position. Nasogastric tube is incompletely visuali zed. Postoperative changes mediastinum. IMPRESSION: Pulmonary edema and other findings appear stable. POS: TANO
--- NOTE | 2018-07-04 12:11 | PDOC.PN ---
- Subjective Encounter Start Date: 07/04/18 Encounter Start Time: 10:20 Subjective: on vent, awake, has mild propofol -: at bedside -: is wanting to sit on bed (communicating with sign lang) - Objective Resuscitation Status - Order Detail: 06/17/18 01:48 Resuscitation Status Routine Resuscitation Status: FULL: Full Resuscitation Discussed with: d/w patient at bedside 06/22/18 15:13 Resuscitation Status Routine Resuscitation Status: FULL: Full Resuscitation MAR Reviewed: Yes Vital Signs & Weight: Vital Signs (12 hours) Temp Pulse Resp BP Pulse Ox 07/04/18 10:00 17 07/04/18 08:36 106 H 95/61 100 07/04/18 08:34 104 H 20 100 07/04/18 08:00 98.5 F 17 07/04/18 07:00 98.6 F 07/04/18 06:00 17 07/04/18 04:00 99.9 F H 17 07/04/18 02:24 96 07/04/18 02:00 17 Weight Admit Weight 208 lb 8.917 oz Weight 208 lb 8.917 oz Most Recent Monitor Data Heart Rate from ECG 101 NIBP 92/60 NIBP BP-Mean 70 Respiration from ECG 19 SpO2 100 I&O: 07/03/18 07/04/18 07/05/18 06:59 06:59 06:59 Intake Total 800 584.8 Output Total 400 2306 80 Balance 400 -1721.2 -80 Result Diagrams: 07/04/18 04:21 07/04/18 07:17 Additional Labs: Accuchecks 07/04/18 07/03/18 07/03/18 06:21 23:23 16:28 POC Glucose 223 H 233 H 177 H Phys Exam - Physical Examination HEENT: PERRLA, sclera anicteric Neck: no JVD, supple Respiratory: no wheezing, no rales Cardiovascular: RRR, no significant murmur Gastrointestinal: soft, non-tender, positive bowel sounds Musculoskeletal: no edema, pulses present Neurological: non-focal, moves all 4 limbs Psychiatric: A&O x 3 Dx/Plan (1) Acute respiratory failure with hypoxia Code(s): J96.01 - ACUTE RESPIRATORY FAILURE WITH HYPOXIA Status: Acute (2) Sepsis Code(s): A41.9 - SEPSIS, UNSPECIFIED ORGANISM Status: Resolved Qualifiers: Sepsis type: Streptococcus group B Qualified Code(s): A40.1 - Sepsis due to streptococcus, group B Comment: resolving (3) Acute [place] Code(s): I21.9 - ACUTE MYOCARDIAL INFARCTION, UNSPECIFIED Status: Resolved Qualifiers: Myocardial infarction type: non-ST elevation myocardial infarction Qualified Code(s): I21.4 - Non-ST elevation (NSTEMI) myocardial infarction Comment: for med treatment (4) ALISON (acute kidney injury) Code(s): N17.9 - ACUTE KIDNEY FAILURE, UNSPECIFIED Status: Resolved (5) Metabolic acidosis Code(s): E87.2 - ACIDOSIS Status: Resolved (6) FLORY (obstructive sleep apnea) Code(s): G47.33 - OBSTRUCTIVE SLEEP APNEA (ADULT) (PEDIATRIC) Status: Chronic (7) Cardiogenic shock Code(s): R57.0 - CARDIOGENIC SHOCK Status: Resolved (8) DM2 (diabetes mellitus, type 2) Status: Chronic Qualifiers: Diabetes mellitus superintendent terminal insulin use: without intermediate use Diabetes mellitus complication status: with unspecified complications Qualified Code(s) : E11.8 - Type 2 diabetes mellitus with unspecified complications Comment: labile (9) HTN (hypertension) Code(s): I10 - ESSENTIAL (PRIMARY) HYPERTENSION Status: Chronic Qualifiers: Hypertension type: essential hypertension Qualified Code(s): I10 - Essential (primary) hypertension (10) Physical deconditioning Code(s): R53.81 - OTHER MALAISE Status: Acute (11) Atrial flutter Code(s): I48.92 - UNSPECIFIED ATRIAL FLUTTER Status: Resolved Qualifiers: Atrial flutter type: unspecified Qualified Code(s): I48.92 - Unspecified atrial flutter Comment: s/p ablation in sinus (12) Bacteremia Code(s): R78.81 - BACTEREMIA Status: Resolved Comment: strep agalactiae (13) CKD (chronic kidney disease) stage 3, GFR 30-59 ml/min Code(s): N18.3 - CHRONIC KIDNEY DISEASE, STAGE 3 (MODERATE) Status: Suspected - Plan weaning per pulm advice -: poor prognosis, day 17 in hospital now -: urine output around 2300ml last 24hrs -: on asp, eliquis, coreg, ivabradin, crestor -: dc imdur for now, is on lasix * . continue lantus, glipizide and metformin. start glucernal ng feeding if ok with pulm. Review of Systems - Medications/Allergies Allergies/Adverse Reactions: Allergies Allergy/AdvReac Type Severity Reaction Status Date / Time amoxicillin [Amoxicillin] Allergy Verified 05/30/16 08:08 Medications: Current Medications Acetaminophen (Tylenol Elixir) 650 mg PO Q6H PRN PRN Reason: Fever > 101 or Mild Pain Albuterol/Ipratropium (Duoneb) 3 ml NEB [id number] [facility] Last Admin: 07/04/18 08:34 Dose: 3 ml Apixaban (Eliquis) 5 mg PO BID [facility] Last Admin: 07/04/18 09:13 Dose: 5 mg Aspirin (Ecotrin) 81 mg PO DAILY [facility] Last Admin: 07/04/18 09:12 Dose: 81 mg Carvedilol (Coreg) 3.125 mg PO BID[facility] Last Admin: 07/04/18 09:29 Dose: 3.125 mg Cefdinir (Omnicef) 300 mg PO BID [facility] Last Admin: 07/04/18 09:12 Dose: 300 mg Dextrose/Water (Dextrose 50%) 25 gm IVP PRN PRN PRN Reason: HYPOGLYCEMIA PROTOCOL Famotidine (Pepcid) 20 mg PER TUBE BID [facility] Last Admin: 07/04/18 09:16 Dose: 20 mg Furosemide (Lasix) 40 mg PO 0900,1400 [facility] Last Admin: 07/04/18 09:14 Dose: 40 mg Glipizide (Glucotrol) 5 mg PO BID[facility] Last Admin: 07/04/18 09:13 Dose: 5 mg Glucagon (Glucagon) 1 mg IM PRN PRN PRN Reason: HYPOGLYCEMIA PROTOCOL Dextrose/Water (D5w) 1,000 mls @ 0 mls/hr IV INF PRN PRN Reason: HYPOGLYCEMIA PROTOCOL Insulin Glargine 20 units/ (Miscellaneous Medication) 0.2 mls @ 0 mls/hr SC HS [facility] Last Admin: 07/03/18 22:13 Dose: 0.2 mls Insulin Glargine 20 units/ (Miscellaneous Medication) 0.2 mls @ 0 mls/hr SC QAM [facility] Last Admin: 07/04/18 09:17 Dose: 0.2 mls Fentanyl Citrate 2,000 mcg/ (Sodium Chloride) 100 mls @ 0 mls/hr IV INF [facility]; Protocol Stop: 08/02/18 12:53 Fentanyl Citrate (Fentanyl Bolus) 250 mls @ 0 mls/hr IVPB PRN PRN PRN Reason: Breakthrough pain/agitation Stop: 08/02/18 12:53 Insulin Human Lispro (Humalog) 0 units SC .AGGRESSIVE SLIDING PRN; Protocol PRN Reason: AGGRESSIVE SLIDING SCALE Last Admin: 07/04/18 06:49 Dose: 6 unit Iron/Minerals/Multivitamins (Theragran M) 1 tab PO DAILY [facility] Last Admin: 07/04/18 09:13 Dose: 1 tab Isosorbide Mononitrate (Imdur) 60 mg PO DAILY [facility] Last Admin: 07/04/18 09:35 Dose: Not Given Ivabradine (Corlanor) 5 mg PO BID [facility] Last Admin: 07/04/18 09:14 Dose: 5 mg Lorazepam (Ativan) 2 mg SLOW IVP Q1H PRN PRN Reason: Breakthrough agitation Stop: 08/02/18 12:53 Mineral Oil/White Petrolatum (Systane Nighttime Eye Ointment) 0 gm EA EYE PRN PRN PRN Reason: Dry Eyes Morphine Sulfate (Morphine) 2 mg SLOW IVP Q1H PRN PRN Reason: BREAKTHROUGH PAIN/Agitation Stop: 08/02/18 12:53 Nitroglycerin (Nitrostat) 0.4 mg SL Q5MIN PRN PRN Reason: Chest Pain Last Admin: 06/17/18 04:19 Dose: 0.4 mg Ondansetron HCl (Zofran) 4 mg IVP Q6H PRN PRN Reason: Nausea/Vomiting Last Admin: 06/20/18 09:17 Dose: 4 mg Potassium Chloride (Klor-Con 10) 10 meq PO QAM-[facility] Last Admin: 07/04/18 09:14 Dose: 10 meq Pregabalin (Lyrica) 50 mg PO BID [facility] Last Admin: 07/04/18 09:14 Dose: 50 mg Propofol (Diprivan) 1,000 mg IV INF PRN; Protocol PRN Reason: TO ACHIEVE GOAL RASS Stop: 08/02/18 12:53 Last Admin: 07/04/18 09:22 Dose: 1,000 mg Propofol (Diprivan Bolus) 20 mg IV Q5MIN PRN PRN Reason: BREAKTHROUGH AGITATION Stop: 08/02/18 12:53 Rosuvastatin Calcium (Crestor) 10 mg PO DAILY [facility] Last Admin: 07/04/18 09:13 Dose: 10 mg Sodium Chloride (Flush - Normal Saline) 10 ml IVF PRN PRN PRN Reason: Saline Flush Sodium Chloride (Flush - Normal Saline) 10 ml IVF Q12HR [facility] Last Admin: 07/04/18 09:18 Dose: 10 ml Spironolactone (Aldactone) 12.5 mg PO QAM-[facility] Last Admin: 07/04/18 09:15 Dose: 12.5 mg Trazodone HCl (Desyrel) 50 mg PO [facility] Last Admin: 07/03/18 22:00 Dose: 50 mg
--- NOTE | 2018-07-04 14:20 | PRG ---
DATE OF SERVICE: 07/04/2018 SERVICE: Pulmonary Medicine. INTERVAL HISTORY: The patient is doing fine from a respiratory standpoint. Denies any current chest pain, fevers, or chills. He is breathing comfortably. Otherwise, there has been no interval change to his condition. PHYSICAL EXAMINATION: VITAL SIGNS: Afebrile, pulse 104, blood pressure 104/69, respirations 20, and saturation 100% on PEEP of 8 and an FiO2 of 40%. GENERAL: The patient is intubated and sedated. HEENT: Normocephalic and atraumatic. Sclerae are white. Conjunctivae are pink. Oral mucosa is moist without lesions. LUNGS: Decent air entry without prolonged expiratory phase, wheezing, or rhonchi present. HEART: Normal rate, regular. ABDOMEN: Soft, nontender, and nondistended. Bowel sounds are positive. MUSCULOSKELETAL: No cyanosis or clubbing. There is 1+ pitting throughout. GENITOURINARY: No James. NEUROLOGIC: Grossly nonfocal. LABORATORY DATA: WBC 8.5, hemoglobin 14.1 and stable, and platelets 298,000. Creatinine 1.38 and up-trending. Basic metabolic profile is otherwise unremarkable. Respiratory culture is growing nothing. IMAGING DATA: Chest x-ray demonstrates interval improvement in aeration in bilateral lung muse. Endotracheal tube is in excellent position. There is a widened carinal angle suggestive of left atrial dilation. Layering effusions are likely present in bilateral lung muse. Sternotomy wires are noted. ASSESSMENT: 1. Acute hypoxic respiratory failure, improving. 2. Acute on chronic systolic heart failure (ejection fraction 15%). 3. Cardiogenic shock. 4. Community-acquired pneumonia, improving. 5. Bacteremia secondary to Streptococcus, resolved. 6. Atrial flutter, paroxysmal. DISCUSSION AND PLAN: The patient is doing fine from a respiratory standpoint. We are going to minimize sedation through time. We will see if we can get him out of bed and into a chair on mechanical ventilation to avoid further deconditioning. Dr. Hannah believes that a BiV pacing device may improve his cardiac output. That being said, Medicare requires a period of time to pass before this is allowed to go in. We are going to discuss whether or not putting a BiV pacing device in the interim would be of benefit to this patient to prevent him from further deconditioning through time. CRITICAL CARE TIME: 30 minutes. Job ID: [id number]
[2018-07-04] MEDS: traZODone HCl 50 MG TAB PO SCH (20:06)
[2018-07-05] MEDS: HumaLOG 300 UNITS/3 ML VIAL SC PRN ×5 (00:14→23:58)
--- NOTE | 2018-07-05 08:05 | PDOC.CTH ---
Cardiology Progress Note - Subjective Pt seen sitting up today. Awake and alert. Still intubated. Pt has been intubated three times now after developing CHF - Objective Vital Signs Temp Pulse Resp BP Pulse Ox 07/05/18 06:00 13 07/05/18 04:04 81 93/63 07/05/18 04:00 97.9 F 18 07/05/18 02:00 18 07/05/18 01:14 81 07/05/18 01:13 94 L 07/05/18 00:00 97.8 F 13 07/04/18 22:10 87 95/65 07/04/18 22:00 13 Admit Weight 208 lb 8.917 oz Weight 207 lb 7.28 oz 07/04/18 07/05/18 07/06/18 06:59 06:59 06:59 Intake Total 584.8 1292.5 Output Total 2306 895 Balance -1721.2 397.5 - Physical Examination General/Neuro: alert & oriented x3, NAD Neck: carotid US brisk, no JVD present Lungs: CTA, unlabored respirations Heart: PMI normal, RRR Abdomen: NT/ND, soft Extremities: + edema B - Labs Result Diagrams: 07/04/18 04:21 07/04/18 07:17 Troponin/CKMB Troponin I 40.010 ng/mL (< 0.028) H* 06/17/18 06:05 - Assessment/Plan Respiratory failue s/p aflutter ablation Cardiomyopathy LBBB Will discuss with Dr. Bowman on timing of resynchronization therapy Keep NPO after MD Viet catalan in possible pacer tomorrow Continue respiratory support per dr. Albert
[2018-07-05] MEDS: Potassium Chloride 10 MEQ TAB PO SCH (09:14)
[2018-07-05] MEDS: glipiZIDE 5 MG TAB PO SCH ×2 (09:14→17:18)
[2018-07-05] MEDS: Spironolactone 25 MG TAB PO SCH (09:15)
[2018-07-05] MEDS: Aspirin 81 mg Enteric Coated Tablet PO SCH (09:16)
[2018-07-05] MEDS: Cefdinir 300 MG CAP PO SCH ×2 (09:16→21:23)
[2018-07-05] MEDS: Insulin Glargine 20 UNITS in Pre-Filled Syringe 1 EACH SC SCH ×2 (09:16→21:23)
[2018-07-05] MEDS: Ivabradine 5 MG TAB PO SCH ×2 (09:16→21:23)
[2018-07-05] MEDS: Rosuvastatin 10 MG TAB PO SCH (09:17)
[2018-07-05] MEDS: Multivitamin W/ Minerals 1 TAB PO SCH (09:17)
[2018-07-05] MEDS: Pregabalin 50 MG CAP PO SCH ×2 (09:17→21:23)
[2018-07-05] MEDS: Carvedilol 3.125 MG TAB PO SCH ×2 (09:18→18:41)
[2018-07-05] MEDS: Apixaban 5 MG TAB PO SCH (09:31)
--- NOTE | 2018-07-05 11:10 | PRG ---
DATE OF SERVICE: 07/05/2018 SERVICE: Pulmonary Medicine. INTERVAL HISTORY: The patient is doing really well from respiratory standpoint. He denies any current shortness of breath, nausea, or vomiting. He is actually on nothing for sedation except for a very small dose of Precedex. With this, he is cool, calm, and collected and able to sit up in a chair. He is able to stand with Physical Therapy. Otherwise, there has been no interval change to his condition. PHYSICAL EXAMINATION: VITAL SIGNS: Afebrile, pulse 90, blood pressure 89/62, respirations 21, and saturation 97% on 37% FiO2 and a PEEP of 8.5. HEENT: Normocephalic and atraumatic. Sclerae are white. Conjunctivae are pink. Oral mucosa is moist without lesions. LUNGS: Decent air entry. There are crackles present in the dependent regions, which are much improved. HEART: Normal rate, regular. ABDOMEN: Soft, nontender, and nondistended. Bowel sounds are positive. MUSCULOSKELETAL: No cyanosis or clubbing. There is no pitting in bilateral lower extremities. NEUROLOGIC: Grossly nonfocal. ASSESSMENT: 1. Acute hypoxic respiratory failure. 2. Acute on chronic systolic heart failure (ejection fraction 15%). 3. Cardiogenic shock, partly secondary to dyssynchrony from left bundle-branch block. 4. Community-acquired pneumonia, resolved. 5. Bacteremia secondary to Streptococcus, resolved. 6. Atrial flutter, paroxysmal. DISCUSSION AND PLAN: The patient will remain on mechanical ventilation. He has been extubated twice and failed. My suspicion is that the positive-pressure supports his heart just enough to provide cardiac output that allows the patient to get by. We are going to investigate whether or not BiV pacing could improve his cardiac output on Friday. As such, I will leave him intubated. We are going to continue to work on getting him out of bed and into a chair 2 to 3 times on a daily basis and have him work with Physical Therapy as much as he can tolerate to minimize reduction of strength through time. I will repeat laboratories tomorrow morning. Pulmonary/Critical Care will continue to follow along while he remains in the ICU. CRITICAL CARE TIME: 30 minutes. Job ID: [id number]
[2018-07-05] MEDS: Famotidine 40 MG/5 ML Oral Suspension PER TUBE SCH ×2 (11:23→21:23)
[2018-07-05] MEDS: Acetaminophen 650 MG/20.3 ML UDCUP PO PRN ×3 (11:23→23:24)
--- NOTE | 2018-07-05 13:50 | PDOC.PN ---
- Subjective Encounter Start Date: 07/05/18 Encounter Start Time: 08:25 Subjective: on vent, awake, follows verbal stimuli -: at bedside - Objective Resuscitation Status - Order Detail: 06/17/18 01:48 Resuscitation Status Routine Resuscitation Status: FULL: Full Resuscitation Discussed with: d/w patient at bedside 06/22/18 15:13 Resuscitation Status Routine Resuscitation Status: FULL: Full Resuscitation MAR Reviewed: Yes Vital Signs & Weight: Vital Signs (12 hours) Temp Pulse Pulse Pulse Resp BP BP 07/05/18 11:34 95 87/59 L 07/05/18 10:00 106 H 106 H 23 H 111/75 07/05/18 09:12 90 89/62 L 07/05/18 09:09 91 21 H 07/05/18 08:00 98.3 F 24 H 07/05/18 06:00 13 07/05/18 04:04 81 93/63 07/05/18 04:00 97.9 F 18 07/05/18 02:00 18 BP Pulse Ox Pulse Ox Pulse Ox 07/05/18 11:34 07/05/18 10:00 89/57 L 96 96 07/05/18 09:12 97 07/05/18 09:09 97 07/05/18 08:00 98 07/05/18 06:00 07/05/18 04:04 07/05/18 04:00 07/05/18 02:00 Weight Admit Weight 208 lb 8.917 oz Weight 207 lb 7.28 oz Most Recent Monitor Data Heart Rate from ECG 79 NIBP 77/49 NIBP BP-Mean 58 Respiration from ECG 17 SpO2 100 I&O: 07/04/18 07/05/18 07/06/18 06:59 06:59 06:59 Intake Total 584.8 1292.5 30 Output Total 2306 895 110 Balance -1721.2 397.5 -80 Result Diagrams: 07/04/18 04:21 07/04/18 07:17 Additional Labs: Accuchecks 07/05/18 07/05/18 07/05/18 13:16 05:01 00:12 POC Glucose 316 H 234 H 214 H 07/04/18 07/04/18 20:05 18:15 POC Glucose 214 H 229 H Phys Exam - Physical Examination HEENT: PERRLA, moist MMs Neck: no JVD, supple Respiratory: no wheezing, no rales Cardiovascular: RRR, no significant murmur Gastrointestinal: soft, non-tender, positive bowel sounds Musculoskeletal: no edema, pulses present Neurological: non-focal, moves all 4 limbs Psychiatric: normal affect, A&O x 3 Dx/Plan (1) Acute respiratory failure with hypoxia Code(s): J96.01 - ACUTE RESPIRATORY FAILURE WITH HYPOXIA Status: Acute (2) Sepsis Code(s): A41.9 - SEPSIS, UNSPECIFIED ORGANISM Status: Resolved Qualifiers: Sepsis type: Streptococcus group B Qualified Code(s): A40.1 - Sepsis due to streptococcus, group B Comment: resolving (3) Acute PR Code(s): I21.9 - ACUTE MYOCARDIAL INFARCTION, UNSPECIFIED Status: Resolved Qualifiers: Myocardial infarction type: non-ST elevation myocardial infarction Qualified Code(s): I21.4 - Non-ST elevation (NSTEMI) myocardial infarction Comment: for med treatment (4) ALISON (acute kidney injury) Code(s): N17.9 - ACUTE KIDNEY FAILURE, UNSPECIFIED Status: Resolved (5) Metabolic acidosis Code(s): E87.2 - ACIDOSIS Status: Resolved (6) FLORY (obstructive sleep apnea) Code(s): G47.33 - OBSTRUCTIVE SLEEP APNEA (ADULT) (PEDIATRIC) Status: Chronic (7) Cardiogenic shock Code(s): R57.0 - CARDIOGENIC SHOCK Status: Resolved (8) DM2 (diabetes mellitus, type 2) Status: Chronic Qualifiers: Diabetes mellitus assisted insulin use: without dry cleaning manager use Diabetes mellitus complication status: with unspecified complications Qualified Code(s) : E11.8 - Type 2 diabetes mellitus with unspecified complications Comment: labile (9) HTN (hypertension) Code(s): I10 - ESSENTIAL (PRIMARY) HYPERTENSION Status: Chronic Qualifiers: Hypertension type: essential hypertension Qualified Code(s): I10 - Essential (primary) hypertension (10) Physical deconditioning Code(s): R53.81 - OTHER MALAISE Status: Acute (11) Atrial flutter Code(s): I48.92 - UNSPECIFIED ATRIAL FLUTTER Status: Resolved Qualifiers: Atrial flutter type: unspecified Qualified Code(s): I48.92 - Unspecified atrial flutter Comment: s/p ablation in sinus (12) Bacteremia Code(s): R78.81 - BACTEREMIA Status: Resolved Comment: strep agalactiae (13) CKD (chronic kidney disease) stage 3, GFR 30-59 ml/min Code(s): N18.3 - CHRONIC KIDNEY DISEASE, STAGE 3 (MODERATE) Status: Suspected - Plan weaning per pulm advice -: EP to evaluate if he is a candidate for FLOOR DIRECTOR -: prognosis guarded, glucernal ng feeding -: continue current meds asp, coreg, ivabradin, spironolactone -: is off eliquis for possible procedures, nebs, lantus 20 u bid * . Review of Systems - Medications/Allergies Allergies/Adverse Reactions: Allergies Allergy/AdvReac Type Severity Reaction Status Date / Time amoxicillin [Amoxicillin] Allergy Verified 05/30/16 08:08 Medications: Current Medications Acetaminophen (Tylenol Elixir) 650 mg PO Q6H PRN PRN Reason: Fever > 101 or Mild Pain Last Admin: 07/05/18 11:23 Dose: 650 mg Albuterol/Ipratropium (Duoneb) 3 ml NEB [id number] [facility] Last Admin: 07/05/18 09:09 Dose: 3 ml Aspirin (Ecotrin) 81 mg PO DAILY [facility] Last Admin: 07/05/18 09:16 Dose: 81 mg Carvedilol (Coreg) 3.125 mg PO BID-WM [facility] Last Admin: 07/05/18 09:18 Dose: Not Given Cefdinir (Omnicef) 300 mg PO BID [facility] Last Admin: 07/05/18 09:16 Dose: 300 mg Dextrose/Water (Dextrose 50%) 25 gm IVP PRN PRN PRN Reason: HYPOGLYCEMIA PROTOCOL Famotidine (Pepcid) 20 mg PER TUBE BID [facility] Last Admin: 07/05/18 11:23 Dose: 20 mg Glipizide (Glucotrol) 5 mg PO BID-WM [facility] Last Admin: 07/05/18 09:14 Dose: 5 mg Glucagon (Glucagon) 1 mg IM PRN PRN PRN Reason: HYPOGLYCEMIA PROTOCOL Dextrose/Water (D5w) 1,000 mls @ 0 mls/hr IV INF PRN PRN Reason: HYPOGLYCEMIA PROTOCOL Insulin Glargine 20 units/ (Miscellaneous Medication) 0.2 mls @ 0 mls/hr SC [facility] Last Admin: 07/04/18 20:08 Dose: 0.2 mls Insulin Glargine 20 units/ (Miscellaneous Medication) 0.2 mls @ 0 mls/hr [facility] Last Admin: 07/05/18 09:16 Dose: 0.2 mls Dexmedetomidine HCl 400 mcg/ (Sodium Chloride) 100 mls @ 0 mls/hr IVPB INF TRANG ; Protocol Insulin Human Lispro (Humalog) 0 units SC .AGGRESSIVE SLIDING PRN; Protocol PRN Reason: AGGRESSIVE SLIDING SCALE Last Admin: 07/05/18 05:18 Dose: 6 unit Iron/Minerals/Multivitamins (Theragran M) 1 tab PO DAILY [facility] Last Admin: 07/05/18 09:17 Dose: 1 tab Ivabradine (Corlanor) 5 mg PO BID [facility] Last Admin: 07/05/18 09:16 Dose: 5 mg Mineral Oil/White Petrolatum (Systane Nighttime Eye Ointment) 0 gm EA EYE PRN PRN PRN Reason: Dry Eyes Nitroglycerin (Nitrostat) 0.4 mg SL Q5MIN PRN PRN Reason: Chest Pain Last Admin: 06/17/18 04:19 Dose: 0.4 mg Ondansetron HCl (Zofran) 4 mg IVP Q6H PRN PRN Reason: Nausea/Vomiting Last Admin: 06/20/18 09:17 Dose: 4 mg Potassium Chloride (Klor-Con 10) 10 meq PO QA-[facility] Last Admin: 07/05/18 09:14 Dose: 10 meq Pregabalin (Lyrica) 50 mg PO BID [facility] Last Admin: 07/05/18 09:17 Dose: 50 mg Rosuvastatin Calcium (Crestor) 10 mg PO DAILY [facility] Last Admin: 07/05/18 09:17 Dose: 10 mg Sodium Chloride (Flush - Normal Saline) 10 ml IVF PRN PRN PRN Reason: Saline Flush Sodium Chloride (Flush - Normal Saline) 10 ml IVF Q12HR [facility] Last Admin: 07/05/18 09:17 Dose: 10 ml Spironolactone (Aldactone) 12.5 mg PO QAM-[facility] Last Admin: 07/05/18 09:15 Dose: 12.5 mg Trazodone HCl (Desyrel) 50 mg PO [facility] Last Admin: 07/04/18 20:06 Dose: 50 mg
[2018-07-05] MEDS: traZODone HCl 50 MG TAB PO SCH (21:23)
[2018-07-06 05:51] LABS: #Lymphocytes 1.1 thou/uL (1.20-3.40); #Monocytes 0.7 thou/uL (0.11-0.59); #Neutrophils 7.5 thou/uL (1.40-6.50); %Basophils 0.1 % (0.0-1.0); %Eosinophils 0.3 % (0.0-10.0); %Lymphocytes 12.1 % (21.0-51.0); %Monocytes 7.3 % (0.0-10.0); %Neutrophils 80.3 % (42.0-75.0); Hemoglobin 13.7 g/dL (14.0-18.0); Mean Corpuscular HGB CONC 32.3 g/dL (32.0-36.0); Mean Corpuscular Hemoglobin 30.4 pg (27.0-31.0); Mean Corpuscular Volume 94.1 fL (78.0-98.0); Mean Platelet Volume 8.4 fL (7.4-10.4); Platelet Count 236 thou/uL (130-400); White Blood Cell (WBC) Count 9.3 thou/uL (4.8-10.8)
[2018-07-06 06:03] LABS: Anion Gap 13 mmol/L (10-20); BUN (Urea Nitrogen) 67 mg/dL (8.4-25.7); Calc. Creatinine Clearance 72 mL/min (70-130); Calcium 8.9 mg/dL (7.8-10.44); Carbon Dioxide 30 mmol/L (23-31); Chloride 97 mmol/L (98-107); Estimated GFR-MDRD 57; Glucose 191 mg/dL (83-110); Magnesium 2.2 mg/dL (1.6-2.6); Potassium 3.5 mmol/L (3.5-5.1); Sodium 136 mmol/L (136-145)
[2018-07-06 06:47] LABS: Actual Bicarbonate (HCO3a) 26.2 mEq/L (22-28); Base Excess (BEa) 4.3 mEq/L (-2.0 to +3.0); CO2 Tension 31.4 mmHg (35.0-45.0); Calcium, Ionized 1.14 mmol/L (1.12-1.30); Carboxyhemoglobin (COHb) 1.5 gm% (0.0-3.0); Hemoglobin (Hb) 14.3 g/dL (14.0-18.0); Potassium - ABG Lab 3.38 mmol/L (3.70-5.30); pH, Arterial 7.54 (7.35-7.45)
[2018-07-06 06:48] LABS: O2 Tension (PaO2) 53.4 mmHg (> 70.0)
[2018-07-06 06:49] LABS: Peep/CPAP 8.5 cmH2O; Puncture Site RRA
[2018-07-06] MEDS ORDERED: Clindamycin/D5W 900 mg/50 ml Premix Bag ONE (08:20)
[2018-07-06] MEDS ORDERED: Levofloxacin 500 mg/D5W 100 ml Premix Bag ONE (08:20)
[2018-07-06] MEDS: Rosuvastatin 10 MG TAB PO SCH (08:30)
[2018-07-06] MEDS: Potassium Chloride 10 MEQ TAB PO SCH (08:31)
[2018-07-06] MEDS: glipiZIDE 5 MG TAB PO SCH ×2 (08:31→16:55)
[2018-07-06] MEDS: Carvedilol 3.125 MG TAB PO SCH ×2 (08:31→16:55)
[2018-07-06] MEDS: Ivabradine 5 MG TAB PO SCH ×2 (08:32→20:31)
[2018-07-06] MEDS: Spironolactone 25 MG TAB PO SCH (08:32)
[2018-07-06] MEDS: Pregabalin 50 MG CAP PO SCH ×2 (08:32→20:28)
[2018-07-06] MEDS: Cefdinir 300 MG CAP PO SCH ×2 (08:33→20:29)
[2018-07-06] MEDS: Insulin Glargine 20 UNITS in Pre-Filled Syringe 1 EACH SC SCH ×2 (08:33→21:08)
[2018-07-06] MEDS: Aspirin 81 mg Enteric Coated Tablet PO SCH (08:33)
[2018-07-06] MEDS: Multivitamin W/ Minerals 1 TAB PO SCH (08:33)
[2018-07-06] MEDS: Famotidine 40 MG/5 ML Oral Suspension PER TUBE SCH ×2 (08:33→20:29)
[2018-07-06] MEDS ORDERED: Sodium Chloride 0.9% 1,000 ML IV SCH (09:00)
[2018-07-06] MEDS ORDERED: Fentanyl 100 MCG/2 ML VIAL ONE (10:11)
[2018-07-06] MEDS ORDERED: Norepinephrine 8 MG/0.9% NS 250 ML ONE (10:11)
[2018-07-06] MEDS ORDERED: EPINEPHrine 1 MG, Admixture Fee 1 EACH in Dextrose 5% in Water 250 ML IVPB SCH (10:15)
--- NOTE | 2018-07-06 10:15 | PRG ---
DATE OF SERVICE: 07/06/2018 This is 35 minutes critical care time. SUBJECTIVE: Mr. Mayo remains intubated on mechanical ventilation. He is supposed to have a biventricular pacer placed today. Main issue overnight has been persistent hypotension. OBJECTIVE: VITAL SIGNS: Currently, his temperature is 95.9, pulse 74, blood pressure is 79/62, O2 saturation 100%. A 24-hour intake 1304, output 897. HEENT: Unremarkable. NECK: No JVD. LUNGS: Clear anteriorly. CARDIAC: S1 and S2 irregularly irregular. ABDOMEN: Soft, nontender. EXTREMITIES: No edema. LABORATORY DATA: White blood cell count 9.3, hematocrit 42.3, and platelet count 236. PH 7.54, pCO2 of 31, pO2 of 53 on a respiratory rate of 11, inspiratory pressure of 13, PEEP 8.5, FiO2 of 31%. Sodium 136, potassium 3.5, chloride 97, CO2 to 30, BUN 67, creatinine 1.2, glucose 191. ASSESSMENT: 1. Persistent severe systolic heart failure. 2. Cardiogenic shock. 3. Acute respiratory failure, requiring mechanical ventilation. 4. Bacteremia secondary to Streptococcus which is resolved. 5. Atrial flutter. PLAN: His prognosis remains quite poor. I will try to give him some volume as his hypotension has steadily worsen. We will hold his Aldactone for a little while. His Coreg is being held until his pressure comes up. He is not a candidate for extubation at this time. Job ID: [id number]
[2018-07-06] MEDS ORDERED: Lidocaine 1% (PF) 30 ML VIAL ONE (10:19)
[2018-07-06] MEDS: HumaLOG 300 UNITS/3 ML VIAL SC PRN ×2 (12:20→17:17)
--- NOTE | 2018-07-06 12:25 | PDOC.PN ---
- Subjective Encounter Start Date: 07/06/18 Encounter Start Time: 11:00 Subjective: on vent, awake -: not in distress - Objective Resuscitation Status - Order Detail: 06/17/18 01:48 Resuscitation Status Routine Resuscitation Status: FULL: Full Resuscitation Discussed with: d/w patient at bedside 06/22/18 15:13 Resuscitation Status Routine Resuscitation Status: FULL: Full Resuscitation MAR Reviewed: Yes Vital Signs & Weight: Vital Signs (12 hours) Temp Pulse Resp BP Pulse Ox 07/06/18 12:00 97.7 F 24 H 07/06/18 08:00 24 H 07/06/18 07:55 74 78/58 L 07/06/18 07:32 100 07/06/18 07:00 95.9 F L 07/06/18 06:00 21 H 07/06/18 04:00 97.7 F 17 07/06/18 02:41 73 75/54 L 07/06/18 02:00 15 07/06/18 00:40 73 98 Weight Admit Weight 208 lb 8.917 oz Weight 206 lb 12.697 oz Most Recent Monitor Data Heart Rate from ECG 87 NIBP 133/86 NIBP BP-Mean 101 Respiration from ECG 15 SpO2 96 I&O: 07/05/18 07/06/18 07/07/18 06:59 06:59 06:59 Intake Total 1292.5 1304 0 Output Total 895 897 70 Balance 397.5 407 -70 Result Diagrams: 07/06/18 05:38 07/06/18 05:38 Additional Labs: Accuchecks 07/05/18 07/05/18 07/05/18 23:58 18:35 13:16 POC Glucose 255 H 287 H 316 H Phys Exam - Physical Examination HEENT: PERRLA, sclera anicteric Neck: no JVD, supple Respiratory: no wheezing, no rales Cardiovascular: RRR, no significant murmur Gastrointestinal: soft, non-tender, positive bowel sounds Musculoskeletal: no edema, pulses present Neurological: non-focal, moves all 4 limbs Psychiatric: A&O x 3 Dx/Plan (1) Acute respiratory failure with hypoxia Code(s): J96.01 - ACUTE RESPIRATORY FAILURE WITH HYPOXIA Status: Acute (2) Sepsis Code(s): A41.9 - SEPSIS, UNSPECIFIED ORGANISM Status: Resolved Qualifiers: Sepsis type: Streptococcus group B Qualified Code(s): A40.1 - Sepsis due to streptococcus, group B Comment: resolving (3) Acute [place] Code(s): I21.9 - ACUTE MYOCARDIAL INFARCTION, UNSPECIFIED Status: Resolved Qualifiers: Myocardial infarction type: non-ST elevation myocardial infarction Qualified Code(s): I21.4 - Non-ST elevation (NSTEMI) myocardial infarction Comment: for med treatment (4) ALISON (acute kidney injury) Code(s): N17.9 - ACUTE KIDNEY FAILURE, UNSPECIFIED Status: Resolved (5) Metabolic acidosis Code(s): E87.2 - ACIDOSIS Status: Resolved (6) FLORY (obstructive sleep apnea) Code(s): G47.33 - OBSTRUCTIVE SLEEP APNEA (ADULT) (PEDIATRIC) Status: Chronic (7) Cardiogenic shock Code(s): R57.0 - CARDIOGENIC SHOCK Status: Resolved (8) DM2 (diabetes mellitus, type 2) Status: Chronic Qualifiers: Diabetes mellitus jail insulin use: without 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 use Diabetes mellitus complication status: with unspecified complications Qualified Code(s) : E11.8 - Type 2 diabetes mellitus with unspecified complications Comment: labile (9) HTN (hypertension) Code(s): I10 - ESSENTIAL (PRIMARY) HYPERTENSION Status: Chronic Qualifiers: Hypertension type: essential hypertension Qualified Code(s): I10 - Essential (primary) hypertension (10) Physical deconditioning Code(s): R53.81 - OTHER MALAISE Status: Acute (11) Atrial flutter Code(s): I48.92 - UNSPECIFIED ATRIAL FLUTTER Status: Resolved Qualifiers: Atrial flutter type: unspecified Qualified Code(s): I48.92 - Unspecified atrial flutter Comment: s/p ablation in sinus (12) Bacteremia Code(s): R78.81 - BACTEREMIA Status: Resolved Comment: strep agalactiae (13) CKD (chronic kidney disease) stage 3, GFR 30-59 ml/min Code(s): N18.3 - CHRONIC KIDNEY DISEASE, STAGE 3 (MODERATE) Status: Suspected - Plan weaning per pulm advice -: awaiting EP eval to know if he is a 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 Poor prognosis Palliative care to discuss hospice with patient//children. Had severe deconditioning and was slowly overcoming it with ambulation in hallway prior to getting re-intubated. Review of Systems - Medications/Allergies Allergies/Adverse Reactions: Allergies Allergy/AdvReac Type Severity Reaction Status Date / Time amoxicillin [Amoxicillin] Allergy Verified 05/30/16 08:08 Medications: Current Medications Acetaminophen (Tylenol Elixir) 650 mg PO Q6H PRN PRN Reason: Fever > 101 or Mild Pain Last Admin: 07/05/18 23:24 Dose: 650 mg Albuterol/Ipratropium (Duoneb) 3 ml NEB [id number] [facility] Last Admin: 07/06/18 07:54 Dose: 3 ml Aspirin (Ecotrin) 81 mg PO DAILY [facility] Last Admin: 07/06/18 08:33 Dose: 81 mg Carvedilol (Coreg) 3.125 mg PO BID-[facility] Last Admin: 07/06/18 08:31 Dose: Not Given Cefdinir (Omnicef) 300 mg PO BID [facility] Last Admin: 07/06/18 08:33 Dose: 300 mg Dextrose/Water (Dextrose 50%) 25 gm IVP PRN PRN PRN Reason: HYPOGLYCEMIA PROTOCOL Famotidine (Pepcid) 20 mg PER TUBE BID [facility] Last Admin: 07/06/18 08:33 Dose: 20 mg Glipizide (Glucotrol) 5 mg PO BID-[facility] Last Admin: 07/06/18 08:31 Dose: Not Given Glucagon (Glucagon) 1 mg IM PRN PRN PRN Reason: HYPOGLYCEMIA PROTOCOL Dextrose/Water (D5w) 1,000 mls @ 0 mls/hr IV INF PRN PRN Reason: HYPOGLYCEMIA PROTOCOL Insulin Glargine 20 units/ (Miscellaneous Medication) 0.2 mls @ 0 mls/hr SC HS [facility] Last Admin: 07/05/18 21:23 Dose: 0.2 mls Insulin Glargine 20 units/ (Miscellaneous Medication) 0.2 mls @ 0 mls/hr SC QAM [facility] Last Admin: 07/06/18 08:33 Dose: 0.2 mls Dexmedetomidine HCl 400 mcg/ (Sodium Chloride) 100 mls @ 0 mls/hr IVPB INF TRANG ; Protocol Last Admin: 07/05/18 18:40 Dose: 100 mls Sodium Chloride (Normal Saline 0.9%) 1,000 mls @ 70 mls/hr IV .[id number] [facility] Stop: 07/06/18 23:17 Last Admin: 07/06/18 09:40 Dose: 1,000 mls Epinephrine 1 mg/Miscellaneous Medication 1 each/ Dextrose/Water 251 mls @ 0 mls/hr IVPB INF TRANG; Protocol Insulin Human Lispro (Humalog) 0 units SC .AGGRESSIVE SLIDING PRN; Protocol PRN Reason: AGGRESSIVE SLIDING SCALE Last Admin: 07/06/18 12:20 Dose: 3 unit Iron/Minerals/Multivitamins (Theragran M) 1 tab PO DAILY [facility] Last Admin: 07/06/18 08:33 Dose: 1 tab Ivabradine (Corlanor) 5 mg PO BID [facility] Last Admin: 07/06/18 08:32 Dose: 5 mg Mineral Oil/White Petrolatum (Systane Nighttime Eye Ointment) 0 gm EA EYE PRN PRN PRN Reason: Dry Eyes Nitroglycerin (Nitrostat) 0.4 mg SL Q5MIN PRN PRN Reason: Chest Pain Last Admin: 06/17/18 04:19 Dose: 0.4 mg Ondansetron HCl (Zofran) 4 mg IVP Q6H PRN PRN Reason: Nausea/Vomiting Last Admin: 06/20/18 09:17 Dose: 4 mg Potassium Chloride (Klor-Con 10) 10 meq PO QAM-WM [facility] Last Admin: 07/06/18 08:31 Dose: 10 meq Pregabalin (Lyrica) 50 mg PO BID [facility] Last Admin: 07/06/18 08:32 Dose: 50 mg Rosuvastatin Calcium (Crestor) 10 mg PO DAILY [facility] Last Admin: 07/06/18 08:30 Dose: 10 mg Sodium Chloride (Flush - Normal Saline) 10 ml IVF PRN PRN PRN Reason: Saline Flush Sodium Chloride (Flush - Normal Saline) 10 ml IVF Q12HR [facility] Last Admin: 07/06/18 08:35 Dose: 10 ml Trazodone HCl (Desyrel) 50 mg PO HS [facility] Last Admin: 07/05/18 21:23 Dose: 50 mg
[2018-07-06] MEDS ORDERED: Acetaminophen/Codeine 30-300mg Tablet PO PRN ×2 (12:50→12:52)
--- NOTE | 2018-07-06 12:55 | PDOC.CTH ---
Cardiology Progress Note - Subjective Mr Spring continues to be intubated. Stable and responsive on minimal sedation. - ROS not able to obtain ROS (Intubated) - Objective Vital Signs Temp Pulse Resp BP Pulse Ox 07/06/18 12:43 89 108/55 L 07/06/18 12:00 97.7 F 24 H 07/06/18 08:00 24 H 07/06/18 07:55 74 78/58 L 07/06/18 07:32 100 07/06/18 07:00 95.9 F L 07/06/18 06:00 21 H 07/06/18 04:00 97.7 F 17 07/06/18 02:41 73 75/54 L 07/06/18 02:00 15 Admit Weight 208 lb 8.917 oz Weight 206 lb 12.697 oz 07/05/18 07/06/18 07/07/18 06:59 06:59 06:59 Intake Total 1292.5 1304 0 Output Total 895 897 70 Balance 397.5 407 -70 - Physical Examination General/Neuro: NAD Neck: carotid US brisk Lungs: CTA Heart: RRR Abdomen: no HSM, soft - Telemetry Telemetry Rhythm: SR - Labs Result Diagrams: 07/06/18 05:38 07/06/18 05:38 Troponin/CKMB Troponin I 40.010 ng/mL (< 0.028) H* 06/17/18 06:05 Labs: no biomarkers today - Assessment/Plan - Assessment/Plan 1. Typical atrial flutter -s/p CTI ablation last week with Dr. Sands. Now in Sinus tachycardia 2. Systolic heart failure -EF 15-20% -NYHA IV FC. Requiried multiple re-intubation. Pulm/Cards requesting BiV pacing. 3. Left bundle branch block. BiV pacing is reasonable as a last ditch effort to improve his hemodynamics. Hence the pacing indication, and likely need for jail ICD would proceed with BiV ICd implant even though the recent IN/revascularisation - to avoid the need for re-operation. 4. NSTEMI -revascularization performed with drug-eluting stents 5. Obesity 6. Diabetes 7. Hypoxic respiratory failure -attributed to congestive heart failure/low EF -intubated 07/03/18 8. Bacteremia -attributed to femoral line from ER, has been removed -ID following 9. Right lower lobe pneumonia 10. CHADS2-VASC: 5 ( HTN, CAD, diabetes, age, heart failure) - continue eliquis 5 mg BID x 30 days post flutter ablation Heart rhythm remains stable. Hence his heart failure continues to prove challenging to stabilize we will proceed with placing a BiV ICD. Considering his recent bacteremia, neg BCX from 06/27. DENI negative for vegetation .
[2018-07-06] MEDS ORDERED: Norepinephrine 8 MG/0.9% NS 250 ML IVPB SCH (13:00)
[2018-07-06] MEDS ORDERED: Iopamidol 370 76% 50 ML VIAL FS ONE (14:42)
--- NOTE | 2018-07-06 17:17 | PDOC.CTH ---
Cardiology Progress Note - Subjective Remains intubated. - Objective Vital Signs Temp Pulse Resp BP Pulse Ox 07/06/18 16:00 17 07/06/18 15:39 68 98/51 L 07/06/18 14:00 20 07/06/18 12:43 89 108/55 L 07/06/18 12:00 97.7 F 24 H 07/06/18 08:00 24 H 07/06/18 07:55 74 78/58 L 07/06/18 07:32 100 07/06/18 07:00 95.9 F L 07/06/18 06:00 21 H Admit Weight 208 lb 8.917 oz Weight 206 lb 12.697 oz 07/05/18 07/06/18 07/07/18 06:59 06:59 06:59 Intake Total 1292.5 1304 0 Output Total 895 897 260 Balance 397.5 407 -260 - Physical Examination General/Neuro: alert & oriented x3, NAD Neck: no JVD present Lungs: CTA, unlabored respirations Heart: RRR Abdomen: NT/ND Extremities: other: (no edema.) - Telemetry Telemetry Rhythm: NSR - Labs Result Diagrams: 07/06/18 05:38 07/06/18 05:38 Troponin/CKMB Troponin I 40.010 ng/mL (< 0.028) H* 06/17/18 06:05 - Assessment/Plan 1. Ischemic CM, EF 15-20% 2. Typical atrial flutter 3. S/P Flutter ablation. 4. Acute on chronic systolic heart failure. 5. Recent bacteremia, resolved. 6. RLL pneumonia 7. LBBB PLAN: - AICD placed today. - Continue supportive care.
[2018-07-06] MEDS: traZODone HCl 50 MG TAB PO SCH (20:29)
[2018-07-06] MEDS ORDERED: Lidocaine 1% PF 5 ML VIAL ONE (20:41)
[2018-07-06] MEDS: Doxycycline 100 MG CAP PO SCH (21:35)
[2018-07-07] MEDS: HumaLOG 300 UNITS/3 ML VIAL SC PRN ×3 (01:16→21:42)
[2018-07-07 04:54] LABS: #Lymphocytes 0.8 thou/uL (1.20-3.40); #Monocytes 0.8 thou/uL (0.11-0.59); #Neutrophils 7.2 thou/uL (1.40-6.50); %Basophils 0.2 % (0.0-1.0); %Eosinophils 0.2 % (0.0-10.0); %Monocytes 8.7 % (0.0-10.0); %Neutrophils 81.9 % (42.0-75.0); Hemoglobin 13.9 g/dL (14.0-18.0); Mean Corpuscular HGB CONC 32.5 g/dL (32.0-36.0); Mean Corpuscular Hemoglobin 30.5 pg (27.0-31.0); Mean Corpuscular Volume 93.7 fL (78.0-98.0); Mean Platelet Volume 8.8 fL (7.4-10.4); Platelet Count 270 thou/uL (130-400); RBC Distribution Width 15.1 % (11.5-14.5); Red Blood Cell (RBC) Count 4.56 mill/uL (4.70-6.10); White Blood Cell (WBC) Count 8.8 thou/uL (4.8-10.8)
[2018-07-07 05:12] LABS: Anion Gap 13 mmol/L (10-20); BUN (Urea Nitrogen) 60 mg/dL (8.4-25.7); Calc. Creatinine Clearance 93 mL/min (70-130); Calcium 8.6 mg/dL (7.8-10.44); Carbon Dioxide 26 mmol/L (23-31); Chloride 101 mmol/L (98-107); Estimated GFR-MDRD 76; Glucose 179 mg/dL (83-110); Potassium 3.4 mmol/L (3.5-5.1); Sodium 137 mmol/L (136-145)
[2018-07-07 07:18] LABS: Actual Bicarbonate (HCO3a) 27.4 mEq/L (22-28); Base Excess (BEa) 4.9 mEq/L (-2.0 to +3.0); CO2 Tension 34.2 mmHg (35.0-45.0); Calcium, Ionized 1.11 mmol/L (1.12-1.30); Carboxyhemoglobin (COHb) 1.3 gm% (0.0-3.0); Potassium - ABG Lab 3.59 mmol/L (3.70-5.30); pH, Arterial 7.52 (7.35-7.45)
[2018-07-07 08:05] LABS: O2 Tension (PaO2) 50.1 mmHg (> 70.0); Peep/CPAP 8.5 cmH2O; Puncture Site ALINE
[2018-07-07] MEDS: Pregabalin 50 MG CAP PO SCH ×2 (08:42→21:17)
[2018-07-07] MEDS: Doxycycline 100 MG CAP PO SCH ×2 (08:42→21:21)
[2018-07-07] MEDS: Aspirin 81 mg Enteric Coated Tablet PO SCH (08:42)
[2018-07-07] MEDS: Carvedilol 3.125 MG TAB PO SCH ×2 (08:43→16:37)
[2018-07-07] MEDS: Multivitamin W/ Minerals 1 TAB PO SCH (08:43)
[2018-07-07] MEDS: glipiZIDE 5 MG TAB PO SCH ×2 (08:43→16:37)
[2018-07-07] MEDS: Cefdinir 300 MG CAP PO SCH ×2 (08:43→21:20)
[2018-07-07] MEDS: Potassium Chloride 10 MEQ TAB PO SCH (08:43)
[2018-07-07] MEDS: Insulin Glargine 20 UNITS in Pre-Filled Syringe 1 EACH SC SCH ×2 (08:45→21:43)
[2018-07-07] MEDS: Famotidine 40 MG/5 ML Oral Suspension PER TUBE SCH ×2 (08:45→21:18)
[2018-07-07] MEDS: Rosuvastatin 10 MG TAB PO SCH (08:48)
[2018-07-07] MEDS: Ivabradine 5 MG TAB PO SCH ×2 (08:48→21:19)
--- NOTE | 2018-07-07 10:26 | RAD ---
PORTABLE AP CHEST XRAY: DATE: 07/07/2018. History On ventilator. COMPARISON: 07/04/2018. FINDINGS: A multilead left subclavian AICD device is now noted in place. Endotracheal tube and nasogastric tub es remain in place. Postsurgical changes related to median sternotomy and cardiac valve replacement are noted. There are moderate-sized bilateral pleural effusions layering posteriorly greater on the right. There is mild pulmonary vascular congestion present. Vascular calcification is seen in the t horacic aorta. NO other interval change. IMPRESSION: 1. Moderate-sized bilateral pleural effusions, greater on the right, including fluid extending to th e right lung apex. 2. Interval placement of a multilead left subclavian AICD device without evidence of a pneumothorax. 3. The remaining lines and tubes are stable in position. POS: [facility]
[2018-07-07] MEDS ORDERED: CCU ELECTROLYTE REPLACEMENT PROTOCOL FS PRN (10:27)
[2018-07-07] MEDS ORDERED: Potassium Phosphate 12 MMOL in Sodium Chloride 0.9% 250 ML 250 ML IV PRN (10:27)
[2018-07-07] MEDS ORDERED: Potassium Chloride 40 MEQ in Premix Bag 1 BAG IVPB PRN (10:27)
[2018-07-07] MEDS ORDERED: Potassium Phosphate 9 MMOL in Sodium Chloride 0.9% 100 ML IVPB PRN (10:27)
[2018-07-07] MEDS ORDERED: Magnesium 2 GM/NS 0.9% 100 ML 2 GM in Premix Bag 1 BAG IVPB PRN (10:27)
[2018-07-07] MEDS ORDERED: Potassium Chloride 40 MEQ in Sodium Chloride 0.9% 250 ML 250 ML IVPB PRN (10:27)
[2018-07-07] MEDS ORDERED: Magnesium Oxide 400 MG TAB PO PRN ×2 (10:27)
[2018-07-07] MEDS ORDERED: Potassium Chloride 20 MEQ TAB PO PRN (10:27)
[2018-07-07] MEDS ORDERED: Potassium Phosphate 15 MMOL in Sodium Chloride 0.9% 250 ML 250 ML IV PRN (10:27)
--- NOTE | 2018-07-07 10:32 | PDOC.PN ---
- Subjective Encounter Start Date: 07/07/18 Encounter Start Time: 10:30 Mr. Mayo was seen today in follow-up of severe CAD and respiratory failure. He remains intubated. He is awake and alert. No complaints voiced by staff. His is at the bedside. - Objective Resuscitation Status - Order Detail: 06/17/18 01:48 Resuscitation Status Routine Resuscitation Status: FULL: Full Resuscitation Discussed with: d/w patient at bedside 06/22/18 15:13 Resuscitation Status Routine Resuscitation Status: FULL: Full Resuscitation MAR Reviewed: Yes Vital Signs & Weight: Vital Signs (12 hours) Temp Pulse Resp BP Pulse Ox 07/07/18 10:00 29 H 07/07/18 08:00 21 H 07/07/18 07:14 98 07/07/18 07:09 82 108/63 96 07/07/18 07:07 80 27 H 92 L 07/07/18 06:00 12 07/07/18 04:07 72 97 07/07/18 04:00 98.0 F 19 07/07/18 02:00 17 07/07/18 00:48 74 102/54 L 07/07/18 00:00 17 07/06/18 23:00 98.3 F Weight Admit Weight 208 lb 8.917 oz Weight 206 lb Most Recent Monitor Data Heart Rate from ECG 85 NIBP 101/65 NIBP BP-Mean 77 Respiration from ECG 25 SpO2 93 I&O: 07/06/18 07/07/18 07/08/18 06:59 06:59 06:59 Intake Total 6484 476 7536 Output Total 897 675 75 Balance 407 -34 3897 Result Diagrams: 07/07/18 04:49 07/07/18 04:49 Additional Labs: Accuchecks 07/07/18 07/06/18 07/06/18 01:16 20:27 15:57 POC Glucose 210 H 223 H 188 H 07/06/18 07/06/18 12:11 06:25 POC Glucose 193 H 168 H Phys Exam - Physical Examination HEENT: PERRLA, sclera anicteric + rhonchi- scattered, and decreased breath sounds at the bases Cardiovascular: RRR, no significant murmur, no rub Gastrointestinal: soft, non-tender, no distention, positive bowel sounds diminished bowel sounds Musculoskeletal: no edema, pulses present Neurological: non-focal, moves all 4 limbs Dx/Plan (1) Atrial flutter Code(s): I48.92 - UNSPECIFIED ATRIAL FLUTTER Status: Resolved Qualifiers: Atrial flutter type: unspecified Qualified Code(s): I48.92 - Unspecified atrial flutter Comment: s/p ablation in sinus (2) Acute AL Code(s): I21.9 - ACUTE MYOCARDIAL INFARCTION, UNSPECIFIED Status: Resolved Qualifiers: Myocardial infarction type: non-ST elevation myocardial infarction Qualified Code(s): I21.4 - Non-ST elevation (NSTEMI) myocardial infarction Comment: for med treatment (3) Cardiogenic shock Code(s): R57.0 - CARDIOGENIC SHOCK Status: Resolved (4) Acute respiratory failure with hypoxia Code(s): J96.01 - ACUTE RESPIRATORY FAILURE WITH HYPOXIA Status: Acute (5) DM2 (diabetes mellitus, type 2) Status: Chronic Qualifiers: Diabetes mellitus termination clerk insulin use: without termination clerk use Diabetes mellitus complication status: with unspecified complications Qualified Code(s) : E11.8 - Type 2 diabetes mellitus with unspecified complications Comment: labile (6) HTN (hypertension) Code(s): I10 - ESSENTIAL (PRIMARY) HYPERTENSION Status: Chronic Qualifiers: Hypertension type: essential hypertension Qualified Code(s): I10 - Essential (primary) hypertension (7) Physical deconditioning Code(s): R53.81 - OTHER MALAISE Status: Acute - Plan * Patient examined and chart reviewed. Patient has a history of known CAD, s/p CABG, and STENT's in the past. He was admitted on 06/17 due to an acute AL with cardiogenic shock. He was found to have 3 vessel CAD, and is being treated medically. He also developed acute respiratory failure from pulmonary edema, and pneumonia. He is intubated. He also developed Atrial flutter and had CTI ablation yesterday, as well as the placement of a BiV pacemaker and defibrillator. * Acute repspiratory failure- continue ventilator support- continue Omnicef * Chronic systolic heart failure- continue Corlanor, and supportive care * DM- blood glucose is stable- continue glypizide Lantus and SSI * CAD- continue Carvediolol, aspirin crestor * HTN- blood pressure is supported with Leviphed * Physical deconditioning- continue PT/OT
--- NOTE | 2018-07-07 10:45 | PRG ---
DATE OF SERVICE: 07/07/2018 SUBJECTIVE: Maria Esther remains intubated in the vent. His x-ray today shows bilateral large pleural effusion, right greater than left. He had a biventricular pacer inserted yesterday. He is awake and responsive on the vent. OBJECTIVE: VITAL SIGNS: His saturations are 92%, his pulse is 80, blood pressure 130/80. NEUROLOGIC: He is awake, responsive. CHEST: Decreased breath sounds without any wheezing. CARDIAC: Normal S1, S2. No gallops. LABORATORY DATA: Shows white count 8000, H and H are 13 and 42, platelet count is normal. PO2 was 50, pCO2 of . BUN is 60. IMPRESSION: 1. Multiorgan failure. 2. Respiratory failure. 3. Congestive heart failure. 4. Azotemia. 5. Severe deconditioning. PLAN: He, at this stage, is not weanable. I think his overall cardiac status improves. He is on Precedex, neb treatments, supportive care. We will start nutrition today. One-half hour of critical time. Job ID: [id number]
--- NOTE | 2018-07-07 11:18 | PDOC.CTH ---
Cardiology Progress Note - Subjective No new issues. Remains intubated. - Objective Vital Signs Temp Pulse Resp BP Pulse Ox 07/07/18 10:00 29 H 07/07/18 08:00 21 H 07/07/18 07:14 98 07/07/18 07:09 82 108/63 96 07/07/18 07:07 80 27 H 92 L 07/07/18 06:00 12 07/07/18 04:07 72 97 07/07/18 04:00 98.0 F 19 07/07/18 02:00 17 07/07/18 00:48 74 102/54 L 07/07/18 00:00 17 Admit Weight 208 lb 8.917 oz Weight 206 lb 07/06/18 07/07/18 07/08/18 06:59 06:59 06:59 Intake Total 9983 544 4916 Output Total 897 675 90 Balance 407 -34 3942 - Physical Examination General/Neuro: other: (S/I) Neck: no JVD present Lungs: unlabored respirations, other: (crackles at bases.) Heart: RRR Abdomen: NT/ND Extremities: + edema B (1+) - Telemetry Telemetry Rhythm: V paced. - Labs Result Diagrams: 07/07/18 04:49 07/07/18 04:49 Troponin/CKMB Troponin I 40.010 ng/mL (< 0.028) H* 06/17/18 06:05 - Assessment/Plan 1. Ischemic CM, EF 15-20% 2. Typical atrial flutter 3. S/P Flutter ablation. 4. Acute on chronic systolic heart failure. 5. Recent bacteremia, resolved. 6. RLL pneumonia 7. LBBB 8. Hypokalemia PLAN: - AICD in place. - IV diuresis once BP allows. - Continue supportive care.
[2018-07-07] MEDS: traZODone HCl 50 MG TAB PO SCH (21:22)
[2018-07-08 06:29] LABS: #Monocytes 0.7 thou/uL (0.11-0.59); #Neutrophils 7.9 thou/uL (1.40-6.50); %Basophils 0.1 % (0.0-1.0); %Eosinophils 0.2 % (0.0-10.0); %Lymphocytes 10.3 % (21.0-51.0); %Monocytes 7.2 % (0.0-10.0); %Neutrophils 82.3 % (42.0-75.0); Hemoglobin 14.4 g/dL (14.0-18.0); Mean Corpuscular HGB CONC 31.8 g/dL (32.0-36.0); Mean Corpuscular Hemoglobin 30.4 pg (27.0-31.0); Mean Corpuscular Volume 95.6 fL (78.0-98.0); Mean Platelet Volume 9.2 fL (7.4-10.4); Platelet Count 249 thou/uL (130-400); RBC Distribution Width 15.6 % (11.5-14.5); Red Blood Cell (RBC) Count 4.74 mill/uL (4.70-6.10); White Blood Cell (WBC) Count 9.6 thou/uL (4.8-10.8)
[2018-07-08 06:48] LABS: Anion Gap 13 mmol/L (10-20); BUN (Urea Nitrogen) 67 mg/dL (8.4-25.7); Calc. Creatinine Clearance 81 mL/min (70-130); Calcium 8.7 mg/dL (7.8-10.44); Carbon Dioxide 24 mmol/L (23-31); Chloride 102 mmol/L (98-107); Estimated GFR-MDRD 62; Glucose 201 mg/dL (83-110); Potassium 4.4 mmol/L (3.5-5.1); Sodium 135 mmol/L (136-145)
[2018-07-08 06:54] LABS: Base Excess (BEa) -2.1 mEq/L (-2.0 to +3.0); CO2 Tension 27.9 mmHg (35.0-45.0); Calcium, Ionized 1.16 mmol/L (1.12-1.30); Carboxyhemoglobin (COHb) 1.3 gm% (0.0-3.0); Hemoglobin (Hb) 14.8 g/dL (14.0-18.0); Potassium - ABG Lab 4.37 mmol/L (3.70-5.30); pH, Arterial 7.47 (7.35-7.45)
[2018-07-08 06:56] LABS: O2 Tension (PaO2) 53.2 mmHg (> 70.0)
[2018-07-08 06:57] LABS: ALV-art Gradient 247.035 (0-20); Puncture Site LINE
[2018-07-08] MEDS ORDERED: Furosemide 40 MG/4 ML VIAL SLOW IVP SCH (08:15)
[2018-07-08] MEDS: glipiZIDE 5 MG TAB PO SCH ×2 (08:25→16:46)
[2018-07-08] MEDS: Rosuvastatin 10 MG TAB PO SCH (08:25)
[2018-07-08] MEDS: Carvedilol 3.125 MG TAB PO SCH ×2 (08:25→16:45)
[2018-07-08] MEDS: Pregabalin 50 MG CAP PO SCH ×2 (08:25→21:54)
[2018-07-08] MEDS: Potassium Chloride 10 MEQ TAB PO SCH (08:26)
[2018-07-08] MEDS: Aspirin 81 mg Enteric Coated Tablet PO SCH (08:26)
[2018-07-08] MEDS: Multivitamin W/ Minerals 1 TAB PO SCH (08:26)
[2018-07-08] MEDS: Ivabradine 5 MG TAB PO SCH ×2 (08:27→21:56)
[2018-07-08] MEDS: Doxycycline 100 MG CAP PO SCH ×2 (08:29→22:15)
--- NOTE | 2018-07-08 08:29 | PRG ---
DATE OF SERVICE: 07/08/2018 PULMONARY/CRITICAL CARE PROGRESS NOTE TIME SPENT: This is 35 minutes of critical care time. SUBJECTIVE: The patient remains intubated in the CCU. We are having severe problems with oxygenation and blood pressure. His is at the bedside while I examined this morning. I did have the opportunity to talk to her in detail. OBJECTIVE: VITAL SIGNS: At this time, temperature is 98.2, pulse is 90, blood pressure 88/59. He is currently on a norepinephrine drip and a Precedex drip. His intake for the last 24 hours has been 6044 mL, output 915. HEENT: Unremarkable. NECK: No JVD. LUNGS: Poor air movement bilaterally with rhonchi present in all lung muse. CARDIOVASCULAR: S1 and S2 irregular. No murmur. ABDOMEN: Soft, nontender. EXTREMITIES: Edematous throughout. LABORATORY DATA: White blood cell count 9.6, hematocrit 45.3, and platelet count 249. PH of 7.47, pCO2 of 27, pO2 of 53, that was on pressure control ventilation with a rate 10, inspiratory pressure of 15, PEEP of 9, and FiO2 of 47%. Sodium 135, potassium 4.4, chloride 102, CO2 of 24, BUN 67, creatinine 1.2, and glucose 201. ASSESSMENT: 1. Acute respiratory failure complicated by significant pulmonary edema. 2. End-stage systolic cardiac dysfunction. 3. Atrial fibrillation/flutter. 4. Azotemia. 5. Advanced age. 6. Bacteremia, which is resolved. PLAN: Despite aggressive intervention, I do not think this patient is going to improve to the point of being able to be extubated. Today, we will stop his arterial line monitoring. I will try to diurese him. I am not sure his pressure will tolerate that. He looks like he received a significant amount of IV fluids yesterday and I will stop that. I spoke to his in detail. I am not sure she quite "gets it." We may need to get Palliative Care involved. Job ID: [id number]
[2018-07-08] MEDS: Famotidine 40 MG/5 ML Oral Suspension PER TUBE SCH ×2 (08:31→21:54)
[2018-07-08] MEDS: Insulin Glargine 20 UNITS in Pre-Filled Syringe 1 EACH SC SCH ×2 (08:31→22:31)
--- NOTE | 2018-07-08 08:45 | RAD ---
PORTABLE SEMIUPRIGHT FRONTAL CHEST RADIOGRAPH: Date: 07/08/18 COMPARISON: 07/07/18. HISTORY: Ventilated patient. FINDINGS: There is an endotracheal tube terminating at the level of the clavicular heads. Incompletely visualiz ed nasogastric tube present. Multilead transvenous pacing device noted, incompletely visualized. Lung bases are not fully visualized on this exam. Extensive consolidative change/air space disease noted in the perihilar regions and both lung bases with prominent bilateral pleural effusions, unchanged. IMPRESSION: Stable appearance of the chest as above. POS: [facility]
[2018-07-08] MEDS: HumaLOG 300 UNITS/3 ML VIAL SC PRN ×3 (10:19→22:30)
[2018-07-08] MEDS: Ondansetron PF 4 MG/2 ML Vial IVP PRN (12:26)
--- NOTE | 2018-07-08 12:49 | PDOC.CTH ---
Cardiology Progress Note - Subjective EP follow up 07/08/18 HE continues to be intubated. Still has positive volume ballance. Very low dose levophed. - Objective Vital Signs Temp Pulse Pulse Pulse Resp BP BP 07/08/18 12:00 26 H 07/08/18 10:00 88 29 H 07/08/18 09:02 78 80 99/64 104/70 07/08/18 08:00 32 H 07/08/18 07:25 07/08/18 07:00 98.2 F 07/08/18 06:44 111 H 07/08/18 04:00 97.9 F 23 H 07/08/18 02:00 23 H Pulse Ox 07/08/18 12:00 07/08/18 10:00 07/08/18 09:02 07/08/18 08:00 07/08/18 07:25 89 L 07/08/18 07:00 07/08/18 06:44 07/08/18 04:00 07/08/18 02:00 Admit Weight 208 lb 8.917 oz Weight 214 lb 15.211 oz 07/07/18 07/08/18 07/09/18 06:59 06:59 06:59 Intake Total 641 6044.4 160 Output Total 675 915 725 Balance -34 5129.4 -565 - Physical Examination General/Neuro: alert & oriented x3 Neck: no JVD present, other: (JVD+) Lungs: other: (Coarse breathing. No crepitation. ) Heart: RRR Abdomen: no HSM Other PE findings: ICD site without hematoma. - Labs Result Diagrams: 07/08/18 05:46 07/08/18 05:46 Troponin/CKMB Troponin I 40.010 ng/mL (< 0.028) H* 06/17/18 06:05 - Assessment/Plan - Assessment/Plan 1. Typical atrial flutter -s/p CTI ablation last week with Dr. Sands. Now in Sinus tachycardia 2. Systolic heart failure -EF 15-20% -NYHA IV FC. Requiried multiple re-intubation. Pulm/Cards requesting BiV pacing. 3. Left bundle branch block. BiV pacing is reasonable as a last ditch effort to improve his hemodynamics. Hence the pacing indication, and likely need for terminal operations manager ICD we proceeded with the BiV ICd implant 07/06/18 even though the recent NH - to avoid the need for re-operation. 4. NSTEMI -revascularization performed with drug-eluting stents 5. Obesity 6. Diabetes 7. Hypoxic respiratory failure -attributed to congestive heart failure/low EF -intubated 07/03/18 8. Bacteremia -attributed to femoral line from ER, has been removed -ID following 9. Right lower lobe pneumonia 10. CHADS2-VASC: 5 ( HTN, CAD, diabetes, age, heart failure) - continue eliquis 5 mg BID x 30 days post flutter ablation Heart rhythm remains stable. Stiil apppears fluid overload. ICD function remains adequate. COntinue supportive pulmonary and heart failure therapy. D/ W Pulm/cards consultants.
--- NOTE | 2018-07-08 15:11 | PDOC.PN ---
- Subjective Encounter Start Date: 07/08/18 Encounter Start Time: 15:10 Mr. Mayo was seen today in follow-up of AMI, and Atrial flutter. He is currently intubated. He is awake. He is able to follow commands. - Objective Resuscitation Status - Order Detail: 06/17/18 01:48 Resuscitation Status Routine Resuscitation Status: FULL: Full Resuscitation Discussed with: d/w patient at bedside 06/22/18 15:13 Resuscitation Status Routine Resuscitation Status: FULL: Full Resuscitation MAR Reviewed: Yes Vital Signs & Weight: Vital Signs (12 hours) Temp Pulse Pulse Pulse Resp BP BP 07/08/18 14:00 25 H 07/08/18 13:20 79 07/08/18 12:00 98.1 F 26 H 07/08/18 10:00 88 29 H 07/08/18 09:02 78 80 99/64 104/70 07/08/18 08:00 32 H 07/08/18 07:25 07/08/18 07:00 98.2 F 07/08/18 06:44 111 H 07/08/18 04:00 97.9 F 23 H Pulse Ox 07/08/18 14:00 07/08/18 13:20 07/08/18 12:00 07/08/18 10:00 07/08/18 09:02 07/08/18 08:00 07/08/18 07:25 89 L 07/08/18 07:00 07/08/18 06:44 07/08/18 04:00 Weight Admit Weight 208 lb 8.917 oz Weight 214 lb 15.211 oz Most Recent Monitor Data Heart Rate from ECG 78 NIBP 84/60 NIBP BP-Mean 68 Respiration from ECG 22 SpO2 91 I&O: 07/07/18 07/08/18 07/09/18 06:59 06:59 06:59 Intake Total 641 6044.4 160 Output Total 675 915 840 Balance -34 5129.4 -680 Result Diagrams: 07/08/18 05:46 07/08/18 05:46 Additional Labs: Accuchecks 07/08/18 07/07/18 07/07/18 10:18 21:42 15:56 POC Glucose 207 H 205 H 186 H Phys Exam - Physical Examination HEENT: PERRLA Respiratory: no wheezing, no rales + coarse breath sounds bilaterally, decreased breath sounds at the bases Cardiovascular: no significant murmur, no rub, irregular heart rate is rapid Gastrointestinal: soft, non-tender, no distention, positive bowel sounds Musculoskeletal: pulses present, edema present + trace pedal edema Neurological: non-focal Dx/Plan (1) Atrial flutter Code(s): I48.92 - UNSPECIFIED ATRIAL FLUTTER Status: Resolved Qualifiers: Atrial flutter type: unspecified Qualified Code(s): I48.92 - Unspecified atrial flutter Comment: s/p ablation in sinus (2) Acute [place] Code(s): I21.9 - ACUTE MYOCARDIAL INFARCTION, UNSPECIFIED Status: Resolved Qualifiers: Myocardial infarction type: non-ST elevation myocardial infarction Qualified Code(s): I21.4 - Non-ST elevation (NSTEMI) myocardial infarction Comment: for med treatment (3) Cardiogenic shock Code(s): R57.0 - CARDIOGENIC SHOCK Status: Resolved (4) Acute respiratory failure with hypoxia Code(s): J96.01 - ACUTE RESPIRATORY FAILURE WITH HYPOXIA Status: Acute (5) DM2 (diabetes mellitus, type 2) Status: Chronic Qualifiers: Diabetes mellitus usp insulin use: without usp use Diabetes mellitus complication status: with unspecified complications Qualified Code(s) : E11.8 - Type 2 diabetes mellitus with unspecified complications Comment: labile (6) HTN (hypertension) Code(s): I10 - ESSENTIAL (PRIMARY) HYPERTENSION Status: Chronic Qualifiers: Hypertension type: essential hypertension Qualified Code(s): I10 - Essential (primary) hypertension (7) Physical deconditioning Code(s): R53.81 - OTHER MALAISE Status: Acute - Plan * Atrial flutter- he is s/p CTI ablation, and AICD placement * Acute on chronic systolic heart failure- he is volume overloaded, Lasix has been given * Acute respiratory failure- he continues to require ventilator support * Hypotension- he is on low dose Levophed for blood pressure support * DM- blood glucose is slightly elevated- will continue Glipizide and low dose Lantus
[2018-07-08] MEDS: traZODone HCl 50 MG TAB PO SCH (21:54)
[2018-07-09 04:33] LABS: #Lymphocytes 0.9 thou/uL (1.20-3.40); #Monocytes 0.7 thou/uL (0.11-0.59); #Neutrophils 7.6 thou/uL (1.40-6.50); %Basophils 0.4 % (0.0-1.0); %Eosinophils 0.1 % (0.0-10.0); %Lymphocytes 9.8 % (21.0-51.0); %Monocytes 7.6 % (0.0-10.0); %Neutrophils 82.1 % (42.0-75.0); Hemoglobin 14.5 g/dL (14.0-18.0); Mean Corpuscular HGB CONC 32.1 g/dL (32.0-36.0); Mean Corpuscular Hemoglobin 30.4 pg (27.0-31.0); Mean Corpuscular Volume 94.7 fL (78.0-98.0); Mean Platelet Volume 9.4 fL (7.4-10.4); Platelet Count 249 thou/uL (130-400); RBC Distribution Width 15.7 % (11.5-14.5); Red Blood Cell (RBC) Count 4.75 mill/uL (4.70-6.10); White Blood Cell (WBC) Count 9.3 thou/uL (4.8-10.8)
[2018-07-09 04:51] LABS: Anion Gap 12 mmol/L (10-20); BUN (Urea Nitrogen) 66 mg/dL (8.4-25.7); Calc. Creatinine Clearance 77 mL/min (70-130); Calcium 8.9 mg/dL (7.8-10.44); Carbon Dioxide 26 mmol/L (23-31); Chloride 104 mmol/L (98-107); Estimated GFR-MDRD 59; Glucose 236 mg/dL (83-110); Potassium 3.9 mmol/L (3.5-5.1); Sodium 138 mmol/L (136-145)
[2018-07-09 06:18] VITALS: BMI 29.2
[2018-07-09] MEDS: HumaLOG 300 UNITS/3 ML VIAL SC PRN (06:23)
[2018-07-09 07:29] LABS: Actual Bicarbonate (HCO3a) 27.9 mEq/L (22-28); Base Excess (BEa) 4.9 mEq/L (-2.0 to +3.0); CO2 Tension 36.2 mmHg (35.0-45.0); Calcium, Ionized 1.18 mmol/L (1.12-1.30); Carboxyhemoglobin (COHb) 1.4 gm% (0.0-3.0); Hemoglobin (Hb) 14.8 g/dL (14.0-18.0); O2 Tension (PaO2) 64.2 mmHg (> 70.0); Potassium - ABG Lab 3.76 mmol/L (3.70-5.30); pH, Arterial 7.51 (7.35-7.45)
[2018-07-09 07:30] LABS: Puncture Site RRA
--- NOTE | 2018-07-09 07:51 | PDOC.PULCC ---
CCU Progress Note: Subj/Obj - Subjective Date: 07/09/18 Time: 07:50 Subjective: Intubated and on mechanical ventilation. - Objective Allergies/Adverse Reactions: Allergies Allergy/AdvReac Type Severity Reaction Status Date / Time amoxicillin [Amoxicillin] Allergy Verified 05/30/16 08:08 Medications: see ERIC REYES Reviewed: Yes Vital Signs and I&O: Vital Signs Temp 100.5 F H 07/09/18 07:00 Pulse 83 07/09/18 07:19 Resp 22 H 07/09/18 07:18 BP 95/63 07/09/18 07:19 Pulse Ox 93 L 07/09/18 07:18 Intake & Output 07/08/18 07/09/18 07/09/18 18:59 06:59 18:59 Intake Total 1517.2 180 Output Total 950 393 60 Balance 567.2 -213 -60 Weight 214 lb 15.211 oz 228 lb 2.855 oz Intake: Intake, IV Amount 440.2 0 Dexmedetomidine 400 mcg 410 0 In Sodium Chloride 0.9% 96 ml @ Per Protocol IVPB INF TRANG Rx#:[id number] Norepinephrine 8 MG/0.9% 30.2 0 NS 250 ml @ As Directed IVPB INF TRANG Rx#:[id number] Tube Feeding 887 Tube Irrigant 190 180 Output: Output, James 950 393 60 Other: Voiding Method Indwelling Catheter Indwelling Catheter Vent Setting: SIMV 10 450 peep 9 55% Spontaneous Breathing Test: not done CCU Progress Note: Exam - Physical Exam Constitutional: NAD Deviation from normal: intubated HEENT: PERRLA, moist MMs Neck: no nodes, no JVD Cardiovascular: RRR Respiratory: decreased breath sounds Gastrointestinal: soft, non-tender Musculoskeletal: edema present Neurological: non-focal Lymphatic: no nodes Skin: no rash CCU Progress Note: Data - Labs Result Diagrams: 07/09/18 04:20 07/09/18 04:20 Lab results: Laboratory Results 07/07/18 07/07/18 07/07/18 07:05 12:07 15:56 WBC RBC Hgb Hct MCV MCH MCHC RDW Plt Count MPV Neutrophils % Lymphocytes % Monocytes % Eosinophils % Basophils % Neutrophils # Lymphocytes # Monocytes # Eosinophils # Basophils # Specimen Type ARTERIAL Puncture Site DEBORAH Bicarbonate Actual 27.4 ABG pH 7.52 H ABG pCO2 34.2 L ABG pO2 50.1 L* ABG O2 Sat Calc/Harmony 86.6 L* ABG O2 Content 17.9 L ABG Base Excess 4.9 H ABG Hematocrit 44.0 ABG Hemoglobin 15.0 ABG Oxyhemoglobin 85.2 L ABG Carboxyhemoglobin 1.3 ABG Methemoglobin 0.30 ABG Deoxyhemoglobin 13.2 H Pilo Test NOT DONE A-a O2 Gradient 242.260 H Sodium 136 Potassium 3.59 L Chloride 100 Ionized Calcium 1.11 L Mode of Support PCV, PI 15, SIMV % Minute Volume Mechanical Rate 11 Spontaneous Rate Inspired O2 47 Inspiratory Time 0.90 Tidal Volume Spontaneous Tidal Vol Peak Inspir Pressure Pressure Support 13 PEEP or CPAP 8.5 Carbon Dioxide Anion Gap BUN Creatinine Estimated GFR (MDRD) Glucose POC Glucose 144 H 186 H Calcium 07/07/18 07/08/18 07/08/18 21:42 05:46 05:46 WBC 9.6 RBC 4.74 Hgb 14.4 Hct 45.3 MCV 95.6 MCH 30.4 MCHC 31.8 L RDW 15.6 H Plt Count 249 MPV 9.2 Neutrophils % 82.3 H Lymphocytes % 10.3 L Monocytes % 7.2 Eosinophils % 0.2 Basophils % 0.1 Neutrophils # 7.9 H Lymphocytes # 1.0 L Monocytes # 0.7 H Eosinophils # 0.0 Basophils # 0.0 Specimen Type Puncture Site Bicarbonate Actual ABG pH ABG pCO2 ABG pO2 ABG O2 Sat Calc/Harmony ABG O2 Content ABG Base Excess ABG Hematocrit ABG Hemoglobin ABG Oxyhemoglobin ABG Carboxyhemoglobin ABG Methemoglobin ABG Deoxyhemoglobin Pilo Test A-a O2 Gradient Sodium 135 L Potassium 4.4 Chloride 102 Ionized Calcium Mode of Support % Minute Volume Mechanical Rate Spontaneous Rate Inspired O2 Inspiratory Time Tidal Volume Spontaneous Tidal Vol Peak Inspir Pressure Pressure Support PEEP or CPAP Carbon Dioxide 24 Anion Gap 13 BUN 67 H Creatinine 1.16 Estimated GFR (MDRD) 62 Glucose 201 H POC Glucose 205 H Calcium 8.7 07/08/18 07/08/18 07/08/18 06:45 10:18 17:02 WBC RBC Hgb Hct MCV MCH MCHC RDW Plt Count MPV Neutrophils % Lymphocytes % Monocytes % Eosinophils % Basophils % Neutrophils # Lymphocytes # Monocytes # Eosinophils # Basophils # Specimen Type ARTERIAL Puncture Site LINE Bicarbonate Actual 20.0 L ABG pH 7.47 H ABG pCO2 27.9 L ABG pO2 53.2 L* ABG O2 Sat Calc/Harmony 88.1 L ABG O2 Content 18.0 ABG Base Excess -2.1 L ABG Hematocrit 44.0 ABG Hemoglobin 14.8 ABG Oxyhemoglobin 86.7 L ABG Carboxyhemoglobin 1.3 ABG Methemoglobin 0.30 ABG Deoxyhemoglobin 11.7 H Pilo Test A-a O2 Gradient 247.035 H Sodium 135 Potassium 4.37 Chloride 102 Ionized Calcium 1.16 Mode of Support SIMV/PC % Minute Volume 15.0 Mechanical Rate 10 Spontaneous Rate 20 Inspired O2 47 Inspiratory Time 0.90 Tidal Volume Spontaneous Tidal Vol 450 Peak Inspir Pressure 15 Pressure Support 13 PEEP or CPAP 9.0 Carbon Dioxide Anion Gap BUN Creatinine Estimated GFR (MDRD) Glucose POC Glucose 207 H 236 H Calcium 07/08/18 07/09/18 07/09/18 22:30 04:20 04:20 WBC 9.3 RBC 4.75 Hgb 14.5 Hct 45.0 MCV 94.7 MCH 30.4 MCHC 32.1 RDW 15.7 H Plt Count 249 MPV 9.4 Neutrophils % 82.1 H Lymphocytes % 9.8 L Monocytes % 7.6 Eosinophils % 0.1 Basophils % 0.4 Neutrophils # 7.6 H Lymphocytes # 0.9 L Monocytes # 0.7 H Eosinophils # 0.0 Basophils # 0.0 Specimen Type Puncture Site Bicarbonate Actual ABG pH ABG pCO2 ABG pO2 ABG O2 Sat Calc/Harmony ABG O2 Content ABG Base Excess ABG Hematocrit ABG Hemoglobin ABG Oxyhemoglobin ABG Carboxyhemoglobin ABG Methemoglobin ABG Deoxyhemoglobin Pilo Test A-a O2 Gradient Sodium 138 Potassium 3.9 Chloride 104 Ionized Calcium Mode of Support % Minute Volume Mechanical Rate Spontaneous Rate Inspired O2 Inspiratory Time Tidal Volume Spontaneous Tidal Vol Peak Inspir Pressure Pressure Support PEEP or CPAP Carbon Dioxide 26 Anion Gap 12 BUN 66 H Creatinine 1.22 Estimated GFR (MDRD) 59 Glucose 236 H POC Glucose 258 H Calcium 8.9 07/09/18 07:15 WBC RBC Hgb Hct MCV MCH MCHC RDW Plt Count MPV Neutrophils % Lymphocytes % Monocytes % Eosinophils % Basophils % Neutrophils # Lymphocytes # Monocytes # Eosinophils # Basophils # Specimen Type ARTERIAL Puncture Site RRA Bicarbonate Actual 27.9 ABG pH 7.51 H ABG pCO2 36.2 ABG pO2 64.2 ABG O2 Sat Calc/Harmony 93.0 L ABG O2 Content 19.0 ABG Base Excess 4.9 H ABG Hematocrit 44.0 ABG Hemoglobin 14.8 ABG Oxyhemoglobin 91.4 L ABG Carboxyhemoglobin 1.4 ABG Methemoglobin 0.30 ABG Deoxyhemoglobin 6.9 H Pilo Test POSITIVE A-a O2 Gradient 282.700 H Sodium 137 Potassium 3.76 Chloride 103 Ionized Calcium 1.18 Mode of Support SIMV.PSV % Minute Volume Mechanical Rate 10 Spontaneous Rate Inspired O2 55 Inspiratory Time Tidal Volume 450 Spontaneous Tidal Vol Peak Inspir Pressure Pressure Support 13 PEEP or CPAP 9.0 Carbon Dioxide Anion Gap BUN Creatinine Estimated GFR (MDRD) Glucose POC Glucose Calcium - ABG Interpretation Attestation: I reviewed and interpreted this ABG. ABG Results: ABG pH 7.51 (7.35-7.45) H 07/09/18 07:15 ABG pCO2 36.2 mmHg (35.0-45.0) 07/09/18 07:15 ABG O2 Sat Calc/Harmony 93.0 % (94.0-98.0) L 07/09/18 07:15 ABG Base Excess 4.9 mEq/L (-2.0 to +3.0) H 07/09/18 07:15 Interpretation: respiratory alkalosis - Radiology Interpretation Chest x-ray Status: image reviewed by me (mild improvement in edema) CCU Progress Note: A/P - Problems (1) Acute exacerbation of CHF (congestive heart failure) Current Visit: Yes Status: Acute Code(s): I50.9 - HEART FAILURE, UNSPECIFIED Qualifiers: Heart failure type: systolic Qualified Code(s): I50.23 - Acute on chronic systolic (congestive) heart failure (2) Acute respiratory failure with hypoxia Current Visit: Yes Status: Acute Code(s): J96.01 - ACUTE RESPIRATORY FAILURE WITH HYPOXIA (3) Physical deconditioning Current Visit: Yes Status: Acute Code(s): R53.81 - OTHER MALAISE (4) CKD (chronic kidney disease) stage 3, GFR 30-59 ml/min Current Visit: Yes Status: Suspected Code(s): N18.3 - CHRONIC KIDNEY DISEASE , STAGE 3 (MODERATE) (5) ALISON (acute kidney injury) Current Visit: Yes Status: Resolved Code(s): N17.9 - ACUTE KIDNEY FAILURE, UNSPECIFIED (6) Acute MD Current Visit: Yes Status: Resolved Code(s): I21.9 - ACUTE MYOCARDIAL INFARCTION, UNSPECIFIED Qualifiers: Myocardial infarction type: non-ST elevation myocardial infarction Qualified Code(s): I21.4 - Non-ST elevation (NSTEMI) myocardial infarction (7) Atrial flutter Current Visit: Yes Status: Resolved Code(s): I48.92 - UNSPECIFIED ATRIAL FLUTTER Qualifiers: Atrial flutter type: unspecified Qualified Code(s): I48.92 - Unspecified atrial flutter (8) Bacteremia Current Visit: Yes Status: Resolved Code(s): R78.81 - BACTEREMIA - Time Spent with Patient Time (minutes): 45 - Plan Plan: I will put him on lasix 60mg iv bid Add dobutrex at a low dose 2.5 mcg/kg/min This may require increasing levophed He is not weanable due to severe hypoxemia from pulmonary edema I spent a significant amount of time talking with his yesterday. In my humble opinion, this situation is near hopeless, fully realizing the extent of resources spent trying to improve the situation. I personally would hate to see this evolve into a situation that would require a trach/peg and LTAC. We cannot lose sight of the fact that he has inoperable CAD.
[2018-07-09] MEDS ORDERED: DOBUTamine 500 mg/250 ml 250 ML IVPB SCH (08:00)
--- NOTE | 2018-07-09 08:14 | RAD ---
FRONTAL VIEW CHEST: COMPARISON: Previous day. INDICATION: Ventilated patient, followup. FINDINGS: Numerous extrinsic artifact limit detail. Endotracheal and enteric catheter remain, which are partia lly obscured. There is diffuse opacification of the right lung and prominent opacity involving the m id to inferior left lung. This obscures each hemidiaphragm. Relative sparring at left apex. Cardia c silhouette and pulmonary vasculature remain prominent. IMPRESSION: Diffuse opacities persist bilaterally with relative sparing at the left apex, similar to the previous day. Predominance of findings does favor layering pleural effusions. Underlying parenchymal consol idation may also be present in addition to pulmonary edema. Recommend continued imaging followup. POS: TANO
[2018-07-09] MEDS: Famotidine 40 MG/5 ML Oral Suspension PER TUBE SCH ×2 (09:27→20:52)
[2018-07-09] MEDS: Insulin Glargine 20 UNITS in Pre-Filled Syringe 1 EACH SC SCH ×2 (09:28→21:08)
[2018-07-09] MEDS: Furosemide 40 MG/4 ML VIAL SLOW IVP SCH ×2 (09:28→20:47)
[2018-07-09] MEDS: Ivabradine 5 MG TAB PO SCH ×2 (09:29→20:52)
[2018-07-09] MEDS: Multivitamin W/ Minerals 1 TAB PO SCH (09:29)
[2018-07-09] MEDS: Aspirin 81 mg Enteric Coated Tablet PO SCH (09:29)
[2018-07-09] MEDS: glipiZIDE 5 MG TAB PO SCH ×2 (09:29→16:55)
[2018-07-09] MEDS: Potassium Chloride 10 MEQ TAB PO SCH (09:29)
[2018-07-09] MEDS: Rosuvastatin 10 MG TAB PO SCH (09:29)
[2018-07-09] MEDS: Pregabalin 50 MG CAP PO SCH ×2 (09:30→20:47)
[2018-07-09] MEDS: Carvedilol 3.125 MG TAB PO SCH ×2 (09:55→16:55)
[2018-07-09] MEDS: Doxycycline 100 MG CAP PO SCH ×2 (09:56→20:47)
[2018-07-09 14:27] VITALS: BP 122/64
--- NOTE | 2018-07-09 14:58 | PDOC.PN ---
- Subjective Encounter Start Date: 07/09/18 Encounter Start Time: 09:30 Mr. Mayo was seen today in follow-up of respiratory failure. He is intubated. His is at the bedside. He is indicating with hand gestures and nods that he wants the tube out, and he wants to stop everything. He apparently had a long discussion last night and this morning with Dr. Shelton about this very issue. - Objective Resuscitation Status - Order Detail: 07/09/18 08:21 Resuscitation Status Routine Resuscitation Status: DNAR: NO Resuscitation Discussed with: Dr. Shelton discussed with pt, pts , and pts sister at bedside Additional comments: Nurses present for discussion. Pt was clear on his intention for terminal extubation MAR Reviewed: Yes Vital Signs & Weight: Vital Signs (12 hours) Temp Pulse Resp BP Pulse Ox 07/09/18 14:25 97 122/64 07/09/18 14:00 18 07/09/18 12:28 96 124/74 07/09/18 12:27 95 18 93 L 07/09/18 12:00 98.1 F 16 07/09/18 10:17 88 100/65 07/09/18 10:00 16 07/09/18 08:00 24 H 07/09/18 07:25 91 L 07/09/18 07:19 83 95/63 07/09/18 07:18 84 22 H 93 L 07/09/18 07:00 100.5 F H 07/09/18 06:00 20 07/09/18 04:00 99.3 F 20 Weight Admit Weight 208 lb 8.917 oz Weight 228 lb 2.855 oz Most Recent Monitor Data Heart Rate from ECG 99 NIBP 122/64 NIBP BP-Mean 83 Respiration from ECG 19 SpO2 94 I&O: 07/08/18 07/09/18 07/10/18 06:59 06:59 06:59 Intake Total 6044.4 2330.2 100 Output Total 915 1343 885 Balance 5129.4 987.2 -785 Result Diagrams: 07/09/18 04:20 07/09/18 04:20 Additional Labs: Accuchecks 07/09/18 07/08/18 07/08/18 10:37 22:30 17:02 POC Glucose 126 H 258 H 236 H Phys Exam - Physical Examination HEENT: PERRLA + rales at both bases, with decreased breath sounds Cardiovascular: RRR, no significant murmur, no rub Gastrointestinal: soft, non-tender, no distention, positive bowel sounds Musculoskeletal: pulses present, edema present + 2 edema in the lower extremities Dx/Plan (1) Atrial flutter Code(s): I48.92 - UNSPECIFIED ATRIAL FLUTTER Status: Resolved Qualifiers: Atrial flutter type: unspecified Qualified Code(s): I48.92 - Unspecified atrial flutter Comment: s/p ablation in sinus (2) Acute SD Code(s): I21.9 - ACUTE MYOCARDIAL INFARCTION, UNSPECIFIED Status: Resolved Qualifiers: Myocardial infarction type: non-ST elevation myocardial infarction Qualified Code(s): I21.4 - Non-ST elevation (NSTEMI) myocardial infarction Comment: for med treatment (3) Cardiogenic shock Code(s): R57.0 - CARDIOGENIC SHOCK Status: Resolved (4) Acute respiratory failure with hypoxia Code(s): J96.01 - ACUTE RESPIRATORY FAILURE WITH HYPOXIA Status: Acute (5) DM2 (diabetes mellitus, type 2) Status: Chronic Qualifiers: Diabetes mellitus terminal supervisor insulin use: without intermediate use Diabetes mellitus complication status: with unspecified complications Qualified Code(s) : E11.8 - Type 2 diabetes mellitus with unspecified complications Comment: labile (6) HTN (hypertension) Code(s): I10 - ESSENTIAL (PRIMARY) HYPERTENSION Status: Chronic Qualifiers: Hypertension type: essential hypertension Qualified Code(s): I10 - Essential (primary) hypertension (7) Physical deconditioning Code(s): R53.81 - OTHER MALAISE Status: Acute - Plan * Atrial flutter- his heart rate is improved * Chronic systolic heart failure- he is a bit volume overloaded. - the plan was to consider the addition of Dobutamine, for better blood pressure support, and to facilitate diureses with regards to his heart failure- however, now the patient has decided on discontinuing active treatment- so will await further guidance from the patient and family as how to proceed..
--- NOTE | 2018-07-09 16:27 | PDOC.CTH ---
Cardiology Progress Note - Subjective EP PROGRESS NOTE: 07/09/18 Seen as follow up for atrial arrhythmias and recently placed BiV ICD. Remains intubated and sedated. bedside. Pt now DNR, possible extubation tomorrow/ terminal wean. - ROS not able to obtain ROS - Objective Vital Signs Temp Pulse Resp BP Pulse Ox 07/09/18 16:00 15 07/09/18 14:25 97 122/64 07/09/18 14:00 18 07/09/18 12:28 96 124/74 07/09/18 12:27 95 18 93 L 07/09/18 12:00 98.1 F 16 07/09/18 10:17 88 100/65 07/09/18 10:00 16 07/09/18 08:00 24 H 07/09/18 07:25 91 L 07/09/18 07:19 83 95/63 07/09/18 07:18 84 22 H 93 L 07/09/18 07:00 100.5 F H 07/09/18 06:00 20 Admit Weight 208 lb 8.917 oz Weight 228 lb 2.855 oz 07/08/18 07/09/18 07/10/18 06:59 06:59 06:59 Intake Total 6044.4 2330.2 100 Output Total 915 1343 985 Balance 5129.4 987.2 -885 - Physical Examination General/Neuro: other: (sedated) Neck: no JVD present Lungs: other: (coarse bilaterally) Heart: RRR Abdomen: NT/ND, soft - Telemetry Telemetry Rhythm: SR/ST. MECHATRONICS TECHNICIAN pacing - Labs Result Diagrams: 07/09/18 04:20 07/09/18 04:20 Troponin/CKMB Troponin I 40.010 ng/mL (< 0.028) H* 06/17/18 06:05 - Assessment/Plan 1. Typical atrial flutter -s/p CTI ablation last week with Dr. Sands. Now in Sinus rhythm. Tachycardia much resolved. 2. Systolic heart failure -EF 15-20% -NYHA IV FC. Requiried multiple re-intubation. Pulm/Cards requesting BiV pacing. 3. Left bundle branch block. -BiV pacing is reasonable as a last ditch effort to improve his hemodynamics. Hence the pacing indication, and likely need for halfway ICD we proceeded with the BiV ICd implant 07/06/18 even though the recent IL - to avoid the need for re-operation 4. NSTEMI -revascularization performed with drug-eluting stents 5. Obesity 6. Diabetes 7. Hypoxic respiratory failure -attributed to congestive heart failure/low EF -intubated 07/03/18. FiO2 at 55% 8. Bacteremia -attributed to femoral line from ER, has been removed -ID following 9. Right lower lobe pneumonia 10. CHADS2-VASC: 5 ( HTN, CAD, diabetes, age, heart failure) - continue eliquis 5 mg BID x 30 days post flutter ablation Heart rhythm remains stable. Still apppears fluid overload. ICD function remains adequate. Continue supportive pulmonary and heart failure therapy. D/ W Pulm/cards consultants. Prognosis remains grim but he is showing signs of improvement. I recommend time and additional support from dobutamine gtt.
[2018-07-09] MEDS: traZODone HCl 50 MG TAB PO SCH (20:47)
[2018-07-10 04:50] LABS: #Monocytes 0.8 thou/uL (0.11-0.59); #Neutrophils 7.6 thou/uL (1.40-6.50); %Basophils 0.3 % (0.0-1.0); %Lymphocytes 10.5 % (21.0-51.0); %Monocytes 8.4 % (0.0-10.0); %Neutrophils 80.8 % (42.0-75.0); Hemoglobin 14.2 g/dL (14.0-18.0); Mean Corpuscular HGB CONC 31.7 g/dL (32.0-36.0); Mean Corpuscular Hemoglobin 30.2 pg (27.0-31.0); Mean Corpuscular Volume 95.2 fL (78.0-98.0); Platelet Count 207 thou/uL (130-400); RBC Distribution Width 15.7 % (11.5-14.5); Red Blood Cell (RBC) Count 4.72 mill/uL (4.70-6.10); White Blood Cell (WBC) Count 9.4 thou/uL (4.8-10.8)
[2018-07-10 05:09] LABS: Anion Gap 15 mmol/L (10-20); BUN (Urea Nitrogen) 54 mg/dL (8.4-25.7); Calc. Creatinine Clearance 83 mL/min (70-130); Calcium 8.2 mg/dL (7.8-10.44); Carbon Dioxide 28 mmol/L (23-31); Chloride 103 mmol/L (98-107); Estimated GFR-MDRD 60; Glucose 143 mg/dL (83-110); Potassium 3.6 mmol/L (3.5-5.1); Sodium 142 mmol/L (136-145)
--- NOTE | 2018-07-10 08:07 | RAD ---
PORTABLE AP CHEST XRAY: DATE: 07/10/2018. History On ventilator. Followup evaluation. COMPARISON: 07/09/2018. FINDINGS: Endotracheal tube and nasogastric tube remain in place. Multiple rn cardiac rehab leads overlie the c hest. Multilead left subclavian AICD device is stable in position. Cardiac silhouette is magnified by projection but stable in size. There is a moderately large right pleural effusion and atelectasis . There is opacity seen in the perihilar regions bilaterally which could be related to pulmonary derick ma. No other interval change. IMPRESSION: 1. Moderately large right pleural effusion and atelectasis. 2. Mild pulmonary vascular congestion. 3. Increased perihilar interstitial and alveolar opacities which could be related to pulmonary edema . POS: TANO
[2018-07-10 08:23] VITALS: TEMP 97.6
[2018-07-10] MEDS: Morphine 4 MG/ML VIAL ONE ×2 (09:25→10:16)
--- NOTE | 2018-07-10 09:25 | PRG ---
DATE OF SERVICE: 07/10/2018 TIME SPENT: This is 35 minutes of critical care time. SUBJECTIVE: The patient remains intubated on mechanical ventilation. OBJECTIVE: VITAL SIGNS: Temperature is 100.4, pulse 90, blood pressure 98/62. Currently requiring dobutamine 0.5 mcg/kg/minute and a Levophed drip at 2 mcg/minute. A 24-hour intake was 930 in, 3795 out. HEENT: Unremarkable. NECK: No JVD. LUNGS: Coarse breath sounds with diminished sounds at the bases. CARDIAC: S1, S2. Regular. ABDOMEN: Soft. EXTREMITIES: Edematous. LABORATORY DATA: White blood cell count 9.4, hematocrit 44.9, and platelet count 207. Sodium 142, potassium 3.6, chloride 105, CO2 of 28, BUN 54, creatinine 1.3, glucose 143. His x-ray shows no significant change. ASSESSMENT: End-stage heart disease. The patient has multiple issues including inoperable coronary disease, chronic systolic heart failure, and has had difficulty with atrial flutter/atrial fibrillation. Although, he had a biventricular pacing device placed on Friday. We have really seen no improvement in his cardiac status. This in turn is affected his chronic hypoxic respiratory failure to the point, where he has chronic congestive changes on the x-ray, which have shown no improvement. His renal function is a touch better than yesterday, but again, resulted in no functional improvement in status. PLAN: I spoke with the patient's , sister, and the patient himself at the bedside yesterday. The patient indicated that he wanted care withdrawn. All parties understand that the prognosis is poor. It is not out of the realm of possibilities that this family will change their mind as they have done that several times in the past. If they proceed with extubation, then comfort medications will be written for. Job ID: [id number]
[2018-07-10] MEDS ORDERED: Morphine 4 MG/ML VIAL SLOW IVP PRN (09:52)
[2018-07-10] MEDS: glipiZIDE 5 MG TAB PO SCH (09:53)
[2018-07-10] MEDS: Carvedilol 3.125 MG TAB PO SCH (09:53)
[2018-07-10] MEDS: Potassium Chloride 10 MEQ TAB PO SCH (10:13)
[2018-07-10] MEDS: Aspirin 81 mg Enteric Coated Tablet PO SCH (10:13)
[2018-07-10] MEDS: Doxycycline 100 MG CAP PO SCH (10:16)
[2018-07-10] MEDS: Famotidine 40 MG/5 ML Oral Suspension PER TUBE SCH (10:24)
[2018-07-10] MEDS: Furosemide 40 MG/4 ML VIAL SLOW IVP SCH (10:24)
[2018-07-10] MEDS: Ivabradine 5 MG TAB PO SCH (10:24)
[2018-07-10] MEDS: Insulin Glargine 20 UNITS in Pre-Filled Syringe 1 EACH SC SCH (10:24)
[2018-07-10] MEDS: Pregabalin 50 MG CAP PO SCH (10:27)
[2018-07-10] MEDS: Multivitamin W/ Minerals 1 TAB PO SCH (10:27)
[2018-07-10] MEDS: Rosuvastatin 10 MG TAB PO SCH (10:28)
--- NOTE | 2018-07-10 10:58 | PDOC.PN ---
- Subjective Encounter Start Date: 07/10/18 Encounter Start Time: 10:56 Mr. Mayo was seen today in follow-up of severe CAD. He has been extubated, family is at bedside. - Objective Resuscitation Status - Order Detail: 07/09/18 08:21 Resuscitation Status Routine Resuscitation Status: DNAR: NO Resuscitation Discussed with: Dr. Shelton discussed with pt, pts , and pts sister at bedside Additional comments: Nurses present for discussion. Pt was clear on his intention for terminal extubation MAR Reviewed: Yes Vital Signs & Weight: Vital Signs (12 hours) Temp Pulse Resp Pulse Ox 07/10/18 09:30 124 H 26 H 90 L 07/10/18 08:00 97.6 F 20 93 L 07/10/18 07:29 88 07/10/18 06:00 17 07/10/18 04:00 100.4 F H 22 H 07/10/18 02:00 19 07/10/18 00:00 99.9 F H 17 07/09/18 23:07 92 17 92 L Weight Admit Weight 208 lb 8.917 oz Weight 230 lb 9.6 oz Most Recent Monitor Data Heart Rate from ECG 94 NIBP 100/64 NIBP BP-Mean 76 Respiration from ECG 19 SpO2 93 I&O: 07/09/18 07/10/18 07/11/18 06:59 06:59 06:59 Intake Total 2330.2 913.1 Output Total 1343 2795 250 Balance 987.2 -1881.9 -250 Result Diagrams: 07/10/18 04:25 07/10/18 04:25 Additional Labs: Accuchecks 07/09/18 07/09/18 21:08 16:30 POC Glucose 84 77 Phys Exam - Physical Examination HEENT: PERRLA Respiratory: no wheezing, no rales, no rhonchi, clear to auscultation bilateral Cardiovascular: RRR, no significant murmur, no rub Musculoskeletal: pulses present, edema present Dx/Plan (1) Atrial flutter Code(s): I48.92 - UNSPECIFIED ATRIAL FLUTTER Status: Resolved Qualifiers: Atrial flutter type: unspecified Qualified Code(s): I48.92 - Unspecified atrial flutter Comment: s/p ablation in sinus (2) Acute MO Code(s): I21.9 - ACUTE MYOCARDIAL INFARCTION, UNSPECIFIED Status: Resolved Qualifiers: Myocardial infarction type: non-ST elevation myocardial infarction Qualified Code(s): I21.4 - Non-ST elevation (NSTEMI) myocardial infarction Comment: for med treatment (3) Cardiogenic shock Code(s): R57.0 - CARDIOGENIC SHOCK Status: Resolved (4) Acute respiratory failure with hypoxia Code(s): J96.01 - ACUTE RESPIRATORY FAILURE WITH HYPOXIA Status: Acute (5) DM2 (diabetes mellitus, type 2) Status: Chronic Qualifiers: Diabetes mellitus 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 insulin use: without 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 use Diabetes mellitus complication status: with unspecified complications Qualified Code(s) : E11.8 - Type 2 diabetes mellitus with unspecified complications Comment: labile (6) HTN (hypertension) Code(s): I10 - ESSENTIAL (PRIMARY) HYPERTENSION Status: Chronic Qualifiers: Hypertension type: essential hypertension Qualified Code(s): I10 - Essential (primary) hypertension (7) Physical deconditioning Code(s): R53.81 - OTHER MALAISE Status: Acute - Plan * Acute MO with Cardiogenic Shock, and Aftrial fibrillation- he has decided to stop all active treatment. He has been extubated * Will move him out of the ICU, to a non-monitored bed..
--- NOTE | 2018-07-13 18:12 | PQF ---
REYES ROUSE VINAYA KUMAR MD [id number] CLINICAL DOCUMENTATION CLARIFICATION FORM: POST DISCHARGE Addendum to original discharge summary date: ____ Late entry note date: __ DATE: 07/13/2018 ATTN: Please exercise your independent, professional judgment in responding to the clarification form. Clinical indicators are provided on the bottom of this form for your review Diagnosis: Sepsis Present on Admission (POA): [ x ] Yes [ ] No [ ] Unable to determine Coding guidelines require hospitals to identify whether a diagnosis was present on admission (POA) or not. To accurately assign the appropriate POA indicator, this information must be clearly documented within the medical record. CLINICAL INDICATORS - SIGNS / SYMPTOMS / LABS Documentation to support POA status Endocarditis Pneumonia RISK FACTORS: Documentation to support POA status NSTEMI Cardiogenic shock TREATMENT: Documentation to support POA status Antibiotics (This form is maintained as a part of the permanent medical record) 2014 [employer]. All Rights Reserved [email or web address] [phone] [email or web address]
== END 2018-07-10 12:53 | disposition expired | DRG 853 ==
LOC: ERS 22:59 → SDC/OP 23:42 → CCU 23:54 → IMCU/EMU 06-20 01:22 → CCU 07-03 12:16
PROVIDERS: ADMIT Internal Medicine Cardiovascular Disease; ATTEND Internal Medicine Cardiovascular Disease
PROC: 0JH609Z Insertion of Cardiac Resynchronization Defibrillator Pulse Generator into Chest Subcutaneous Tissue and Fascia, Open Approach (ICD-10-PCS; 2018-06-16)
PROC: 02HK3KZ Insertion of Defibrillator Lead into Right Ventricle, Percutaneous Approach (ICD-10-PCS; 2018-06-16)
PROC: 4A023N7 Measurement of Cardiac Sampling and Pressure, Left Heart, Percutaneous Approach (ICD-10-PCS; 2018-06-16)
PROC: 02H63KZ Insertion of Defibrillator Lead into Right Atrium, Percutaneous Approach (ICD-10-PCS; 2018-06-16)
PROC: B2111ZZ Fluoroscopy of Multiple Coronary Arteries using Low Osmolar Contrast (ICD-10-PCS; 2018-06-16)
PROC: B2151ZZ Fluoroscopy of Left Heart using Low Osmolar Contrast (ICD-10-PCS; 2018-06-16)
PROC: 02583ZZ Destruction of Conduction Mechanism, Percutaneous Approach (ICD-10-PCS; principal; 2018-06-26)
PROC: 5A1955Z Respiratory Ventilation, Greater than 96 Consecutive Hours (ICD-10-PCS; 2018-07-03)
PROC: 0BH17EZ Insertion of Endotracheal Airway into Trachea, Via Natural or Artificial Opening (ICD-10-PCS; 2018-07-03)
DX: A41.9 Sepsis, unspecified organism (principal); I21.4 Non-ST elevation (NSTEMI) myocardial infarction; J18.9 Pneumonia, unspecified organism; J96.01 Acute respiratory failure with hypoxia; I50.23 Acute on chronic systolic (congestive) heart failure; N17.9 Acute kidney failure, unspecified; E87.2 Acidosis; I48.92 Unspecified atrial flutter; I38 Endocarditis, valve unspecified; I13.0 Hypertensive heart and chronic kidney disease with heart failure and stage 1 through stage 4 chronic kidney disease, or unspecified chronic kidney disease; R57.0 Cardiogenic shock; B95.5 Unspecified streptococcus as the cause of diseases classified elsewhere; Z66 Do not resuscitate; Z88.0 Allergy status to penicillin; Z87.891 Personal history of nicotine dependence; Z79.899 Other long term (current) drug therapy; Z79.4 Long term (current) use of insulin; Z79.01 Long term (current) use of anticoagulants; E11.65 Type 2 diabetes mellitus with hyperglycemia; I25.10 Atherosclerotic heart disease of native coronary artery without angina pectoris; Z95.5 Presence of coronary angioplasty implant and graft; E66.9 Obesity, unspecified; G47.33 Obstructive sleep apnea (adult) (pediatric); E78.5 Hyperlipidemia, unspecified; I44.7 Left bundle-branch block, unspecified; E87.5 Hyperkalemia; N18.3 Chronic kidney disease, stage 3 (moderate); E11.22 Type 2 diabetes mellitus with diabetic chronic kidney disease
CPT/HCPCS: 33225; 33249; 36005; 36415; 36416; 71045; 75820; 76942; 80048; 81001; 82805; 83735; 83880; 84100; 84484; 85007; 85014; 85018; 85025; 85027; 85049; 85347; 85610; 85730; 87040; 87070; 87077; 87086; 87149; 87186; 87205; 89220; 93005; 93010; 93306; 93312; 93458; 93613; 93623; 93653; 93798; 94002; 94003; 94640; 94660; 94760; 96365; 96374; C1730; C1769; C1777; C1882; C1887; C1898; C1900; G8978-GP-CL; G8979-GP-CJ; G8987-GO-CL; G8988-GO-CI; J0171; J0282; J0696; J1250; J1265; J1630; J1644; J1650; J1940; J1956; J2001; J2250; J2270; J2370; J2405; J2704; J2920; J3010; J3370; J3490; J7050; J7070; J7620